=== PATIENT | male | born 1985 | race Caucasian/White ===

== ENCOUNTER 2018-12-02 12:51 | Inpatient (IN) ==
--- OUTSIDE RECORDS SUMMARY | 2018-12-02 12:53 | External Medical Summary | Continuity of Care Document ---
:1985 Author Name Jackie Galvan, Provider Address Unavailable Unavailable , Care Team Providers Name Role Phone Non[facility] MLeslie, Provider Unavailable [email or web address] PCP, UNKNOWN Unavailable Unavailable Problems Active medical history not documented Allergies and Adverse Reactions Allergy history not documented Medications Medications not documented Procedures Procedures not documented Immunizations Immunizations not documented Plan of Treatment Planned Observations Planned Goals not documented Results No Known Results Results not documented
[2018-12-02] MEDS ORDERED: ONDANSETRON INJ 2 MG/ML 2 ML VIAL IV STA (13:11)
[2018-12-02] MEDS ORDERED: KETOROLAC TROMETHAMINE 15 MG/ML VIAL IV STA (13:11)
[2018-12-02] MEDS ORDERED: ALBUT/IPRATROP 3MG/0.5MG NEB 3 ML VIAL NEB STA (13:15)
[2018-12-02] MEDS ORDERED: CEFEPIME 2,000 MG/20 ML VIAL IV STA (13:15)
[2018-12-02] MEDS ORDERED: SODIUM CHLORIDE 0.9% 1000ML 1,000 ML IV SCH (13:15)
[2018-12-02 13:24] LABS: Basophils # (auto) 0.04 K/uL (0-0.2); Basophils % (auto) 0.3 %; Eosinophils # (auto) 0.01 K/uL (0-0.5); Eosinophils % (auto) 0.1 %; Hematocrit (blood only) 44.3 % (42-52); Hemoglobin 15.7 g/dL (14.0-18.0); Immature Granulocytes # (auto) 0.04 K/uL (0.00-0.02); Immature Granulocytes % (auto) 0.3 %; Lymphocytes # (auto) 1.44 K/uL (1.2-3.4); Lymphocytes % (auto) 11.3 %; Mean Corpuscular Hgb Conc 35.4 g/dL (32-36); Mean Corpuscular Volume 87.2 fL (80-100); Mean Platelet Volume 10.2 fL (7.4-10.4); Monocytes # (auto) 1.03 K/uL (0.11-0.59); Monocytes % (auto) 8.1 %; Neutrophils # (auto) 10.16 K/uL (1.4-6.5); Neutrophils % (auto) 79.9 %; Platelet Count 124 K/uL (130-400); RDW Coefficient of Variation 13.1 % (11.5-14.5); RDW Standard Deviation 42.2 fL (36.4-46.3); Red Blood Count 5.08 M/uL (4.7-6.1); White Blood Count 12.72 K/uL (4.8-10.8)
[2018-12-02] MEDS: MoRPHine SULFATE 4 MG/ML 1 ML CARP\\VIAL IV PRN ×2 (13:30→14:34)
[2018-12-02 13:41] LABS: Albumin Level 3.5 gm/dl (3.4-5.0); Calcium 8.2 mg/dl (8.5-10.1); Creatinine Clr Calc Pharmacy 132.1 ml/min; Est GFR (African American) 96.4; Est GFR (Non-African American) 83.2; Magnesium 2.1 mg/dl (1.8-2.4); Potassium 3.6 mmol/L (3.5-5.1)
[2018-12-02 13:44] LABS: Albumin Globulin Ratio 0.9 (0.9-2); Bilirubin,Total 0.7 mg/dl (0.2-1); Globulin 3.8 gm/dl (2.5-4.0); Total Protein 7.3 gm/dl (6.4-8.2)
--- NOTE | 2018-12-02 14:05 | Emergency Department Note ---
Entered by Karlee Ball acting as a scribe for Osito Mcfarland MD History of Present Illness General Chief complaint: Abdominal Pain Stated complaint: BACK/STOMACH PAIN, NUMB IN THE ARMS Time Seen by Provider: 12/02/18 13:09 Source: patient History of Present Illness Onset (ago): day(s) 1 Location: abdomen Radiation: back Pain Consistency: + constant Maximum Pain Intensity: 10 Current Pain Intensity: 10 Quality: + other (Abdominal pain) Exacerbated By: + other (Deep breathing) Associated symptoms: + fever/chills, + nausea/vomiting (Positive nausea. Negative vomiting.) and + shortness of breath; no other (dysuria, polyuria) Treatments prior to arrival: other (Tylenol) The patient is a 32 year old male presenting to the Emergency Department complaining of constant abdominal pain starting 1 day ago. The patient reports that he has abdominal pain that radiates to his back. He currently rates this pain 10/10. He states that he is nauseous and has a cough and that sometimes his hands feel numb. He explains that he has a fever and that he took 2 Tylenol E xtra Strength 2 hours ago. He notes that he is short of breath and that deep breathing worsens his abdominal pain. He notes that he has been experiencing diarrhea ever since he had his gallbladder taken out. The patient reports that he has never experienced these symptoms before. He states that he has not been around anybody who is sick. He explains that [facility]. He notes that he smokes tobacco. The patient denies dysuria, polyuria, vomiting, history of diverticulitis and history of asthma. Home Medications Home Medications Medication Instructions Recorded Confirmed Type omeprazole 20 mg PO DAILY PRN 03/16/18 12/02/18 History Allergies Allergy/AdvReac Type Severity Reaction Status Date / Time No Known Allergies Allergy Verified 12/02/18 14:28 Past Med/Surg History Medical History Tobacco use (Chronic) GERD (gastroesophageal reflux disease) (Chronic) Post-operative pain (Resolved) Surgical History Hx of shoulder surgery (Chronic) History of tonsillectomy (Chronic) H/O adenoidectomy (Chronic) History of cholecystectomy (Chronic) Family History Other Diabetes Thyroid disorder Social History Preferred Language: Polish Communication Ability: Effective Nub Card Tender Required: No Beliefs That Will Affect Care: None Current Living Situation: Family Current Living Situation Comment: with girlfriend Other Information That Helps Us Care for You: No Feels Safe at Home: Yes Safety Concerns: Feels Safe At This Time Smoking Status: Current every day smoker Tobacco Type: cigarettes Second Hand Exposure: Yes Hx Alcohol Use: No Hx Substance Use: No Review of Systems See HPI for pertinent positives & negatives. and A total of 10 systems reviewed and were otherwise negative Physical Exam Vital Signs Vital Signs - 24 hr 12/02/18 12:54 12/02/18 14:01 12/02/18 14:37 Temperature 39.5 C H Temperature Source Oral Sepsis New/Unexplained Change in Mental Status No Sepsis Action Taken by Nursing No Action Required Pulse Rate 105 H Pulse Rate [Right Finger] 90 90 Pulse Rhythm Regular Pulse Strength Normal Respiratory Rate 22 14 16 Respiratory Effort / Characteristics Non-Labored Spontaneous Respiratory Depth Normal Respiratory Pattern Regular Blood Pressure 111/70 Blood Pressure [Left Arm] 95/52 L Blood Pressure Mean 83 Blood Pressure Mean [Left Arm] 66 Blood Pressure Position Sitting Pulse Oximetry 96 92 93 Oxygen Delivery Method Room Air Room Air Room Air GENERAL: Patient is in no acute distress. HEENT: No acute trauma, normocephalic atraumatic, mucous membranes moist, no nasal congestion, no scleral icterus. NECK: No stridor, no adenopathy, no meningismus, trachea is midline. LUNGS: Few scattered wheezes. Crackles at both bases especially on the right. No respiratory distress. HEART: Without murmurs gallops or rubs, regular rate and rhythm. ABDOMEN: Soft, bowel sounds positive, no hernias, no peritonitis. Mildly di ffusely tender but primarily tender in the right lower quadrant. EXTREMITIES: No cyanosis or edema, full range of motion of all the joints without pain or difficulty, no signs for acute trauma. NEUROLOGIC: Oriented x 3, no acute motor or sensory deficits, no focal weakness. SKIN: No rash, no jaundice, no diaphoresis. Course 1310: The patient was evaluated in room C1B, and a complete history and physical examination were performed. 1342: I updated the patient at this time on his imaging studies. 1455: I reevaluated the patient at this time and we discussed his findings. We discussed the patients disposition. 1500: I discussed the patients case with Kourtney Islas PA-C. Dr. Ana Vyas hospitalist will evaluate the patient for further management. Consultations Consultation #1: I discussed the patients case with Kourtney Islas PA-C. Dr. Ana Vyas hospitalist will evaluate the patient for further management. Time: 15:00 Administered Medications Acetaminophen (Tylenol) 650 mg PO Q4H PRN PRN Reason: Pain or Fever Stop: 01/01/19 16:28 Last Admin: 12/02/18 16:51 Dose: 650 mg Documented by: [id number] Albuterol (Duoneb) 3 ml NEB QIDR ABHILASH Stop: 01/01/19 16:28 Last Admin: 12/02/18 17:31 Dose: Not Given Documented by: [id number] Sodium Chloride (Nss 1000ml) 1,000 mls @ 125 mls/hr IV .Q8H ABHILASH Stop: 01/01/19 16:28 Last Admin: 12/02/18 16:51 Dose: 125 mls/hr Documented by: [id number] Nicotine (Nicoderm Cq) 14 mg TD QAM ABHILASH Stop: 01/01/19 16:59 Last Admin: 12/02/18 16:52 Dose: Not Given Documented by: [id number] Discontinued Medications Albuterol (Duoneb) 3 ml NEB NOW STA Stop: 12/02/18 13:16 Last Admin: 12/02/18 13:58 Dose: 3 ml Documented by: [id number] Hydromorphone HCl (Dilaudid) 1 mg IV NOW STA Stop: 12/02/18 14:52 Last Admin: 12/02/18 15:01 Dose: 1 mg Documented by: [id number] Cefepime HCl (Maxipime) 2,000 mg in 20 mls @ 5 mls/min IV NOW STA; Protocol Stop: 12/02/18 13:18 Last Admin: 12/02/18 13:42 Dose: 5 mls/min Documented by: [id number] Sodium Chloride (Nss 1000ml) 1,000 mls @ 999 mls/hr IV .Q1H1M ABHILASH Stop: 12/02/18 14:15 Last Infusion: 12/02/18 15:24 Dose: 0 mls/hr Documented by: [id number] Admin: 12/02/18 13:30 Dose: 999 mls/hr Documented by: [id number] Azithromycin 500 mg/ Dextrose 255 mls @ 127.5 mls/hr IV UD ABHILASH Stop: 12/09/18 14:59 Last Infusion: 12/02/18 16:35 Dose: 0 mls/hr Documented by: [id number] Admin: 12/02/18 15:19 Dose: 127.5 mls/hr Documented by: [id number] Sodium Chloride (Nss 1000ml) 500 mls @ 999 mls/hr IV .Q31M ONE Stop: 12/02/18 15:30 Last Infusion: 12/02/18 15:24 Dose: 0 mls/hr Documented by: [id number] Admin: 12/02/18 15:13 Dose: 999 mls/hr Documented by: [id number] Ibuprofen (Motrin) 600 mg PO NOW STA Stop: 12/02/18 17:42 Last Admin: 12/02/18 18:00 Dose: 600 mg Documented by: [id number] Ioversol (Optiray 320 100ml) 94 ml IV ONCE PRN PRN Reason: Interaction Checking Stop: 12/06/18 14:11 Last Admin: 12/02/18 14:12 Dose: 94 ml Documented by: [id number] Ketorolac Tromethamine (Toradol) 15 mg IV NOW STA Stop: 12/02/18 13:12 Last Admin: 12/02/18 13:30 Dose: 15 mg Documented by: [id number] Morphine Sulfate (Morphine Sulfate) 4 mg IV Q15M PRN PRN Reason: Pain Stop: 12/16/18 13:10 Last Admin: 12/02/18 14:34 Dose: 4 mg Documented by: [id number] Admin: 12/02/18 13:30 Dose: 4 mg Documented by: [id number] Ondansetron HCl (Zofran) 4 mg IV NOW STA Stop: 12/02/18 13:12 Last Admin: 12/02/18 13:30 Dose: 4 mg Documented by: [id number] Medical Decision Making Differential Diagnosis Differentials include appendicitis, pneumonia, diverticulitis, colitis, abscess, pancreatitis, UTI, kidney infection, viral or food borne illness and dehydration amongst others. Medical Records Attestation: I reviewed the patient's medical records. Home Medications Current Medication List: was personally reviewed by me Laboratory Data Attestation: I reviewed the patient's lab results. Result diagrams: 12/02/18 13:17 12/02/18 13:17 Lab Results 12/02/18 12/02/18 12/02/18 Range/Units 13:17 13:17 13:17 WBC 12.72 H (4.8-10.8) K/uL RBC 5.08 (4.7-6.1) M/uL Hgb 15.7 (14.0-18.0) g/dL Hct 44.3 (42-52) % MCV 87.2 (80-100) fL MCH 30.9 (25-34) pg MCHC 35.4 (32-36) g/dL RDW Std Deviation 42.2 (36.4-46.3) fL RDW Coeff of Giancarlo 13.1 (11.5-14.5) % Plt Count 124 L (130-400) K/uL MPV 10.2 (7.4-10.4) fL Immature Gran % (Auto) 0.3 % Neut % (Auto) 79.9 % Lymph % (Auto) 11.3 % [place] % (Auto) 8.1 % Eos % (Auto) 0.1 % Baso % (Auto) 0.3 % Immature Gran # (Auto) 0.04 H (0.00-0.02) K/uL Neut # (Auto) 10.16 H (1.4-6.5) K/uL Lymph # (Auto) 1.44 (1.2-3.4) K/uL [place] # (Auto) 1.03 H (0.11-0.59) K/uL Eos # (Auto) 0.01 (0-0.5) K/uL Baso # (Auto) 0.04 (0-0.2) K/uL Sodium 131 L (136-145) mmol/L Potassium 3.6 (3.5-5.1) mmol/L Chloride 98 (98-107) mmol/L Carbon Dioxide 24 (21-32) mmol/L Anion Gap 9.0 (3-11) BUN 16 (7-18) mg/dl Creatinine 1.15 (0.6-1.4) mg/dl Est Cr Clr Drug Dosing 132.1 ml/min Est GFR ( Amer) 96.4 Est GFR (Non-Af Amer) 83.2 BUN/Creatinine Ratio 14.0 (10-20) Glucose 131 H (70-99) mg/dl Lactate 1.2 (0.4-2.0) mmol/L Calcium 8.2 L (8.5-10.1) mg/dl Magnesium 2.1 (1.8-2.4) mg/dl Total Bilirubin 0.7 (0.2-1) mg/dl AST 11 L (15-37) U/L ALT 21 (12-78) U/L Alkaline Phosphatase 48 (45-117) U/L Total Protein 7.3 (6.4-8.2) gm/dl Albumin 3.5 (3.4-5.0) gm/dl Globulin 3.8 (2.5-4.0) gm/dl Albumin/Globulin Ratio 0.9 (0.9-2) Lipase 78 (73-393) U/L Procalcitonin (0-0.5) ng/ml 12/02/18 Range/Units 13:17 WBC (4.8-10.8) K/uL RBC (4.7-6.1) M/uL Hgb (14.0-18.0) g/dL Hct (42-52) % MCV (80-100) fL MCH (25-34) pg MCHC (32-36) g/dL RDW Std Deviation (36.4-46.3) fL RDW Coeff of Giancarlo (11.5-14.5) % Plt Count (130-400) K/uL MPV (7.4-10.4) fL Immature Gran % (Auto) % Neut % (Auto) % Lymph % (Auto) % [place] % (Auto) % Eos % (Auto) % Baso % (Auto) % Immature Gran # (Auto) (0.00-0.02) K/uL Neut # (Auto) (1.4-6.5) K/uL Lymph # (Auto) (1.2-3.4) K/uL [place] # (Auto) (0.11-0.59) K/uL Eos # (Auto) (0-0.5) K/uL Baso # (Auto) (0-0.2) K/uL Sodium (136-145) mmol/L Potassium (3.5-5.1) mmol/L Chloride (98-107) mmol/L Carbon Dioxide (21-32) mmol/L Anion Gap (3-11) BUN (7-18) mg/dl Creatinine (0.6-1.4) mg/dl Est Cr Clr Drug Dosing ml/min Est GFR ( Amer) Est GFR (Non-Af Amer) BUN/Creatinine Ratio (10-20) Glucose (70-99) mg/dl Lactate (0.4-2.0) mmol/L Calcium (8.5-10.1) mg/dl Magnesium (1.8-2.4) mg/dl Total Bilirubin (0.2-1) mg/dl AST (15-37) U/L ALT (12-78) U/L Alkaline Phosphatase (45-117) U/L Total Protein (6.4-8.2) gm/dl Albumin (3.4-5.0) gm/dl Globulin (2.5-4.0) gm/dl Albumin/Globulin Ratio (0.9-2) Lipase (73-393) U/L Procalcitonin 0.58 H (0-0.5) ng/ml Imaging Data Radiologist's Impression: Radiology results as stated below per my review and the radiologist's interpretation: CT SCAN OF THE ABDOMEN AND PELVIS WITH IV CONTRAST CLINICAL HISTORY: Lower abdominal pain. COMPARISON STUDY: Abdominal CT dated 03/16/2018. TECHNIQUE: Following the IV administration of 94 cc of Optiray 320, CT scan of the abdomen and pelvis is performed from the lung bases to the proximal femora. Images are reviewed in the axial, sagittal, and coronal planes. IV contrast was administered without complication. A dose lowering technique was utilized adhering to the principles of ALARA. CT DOSE: 1386.25 mGy.cm FINDINGS: Lung bases: The heart is normal in size and without pericardial effusion. There is dense airspace consolidation in the right lower lobe. Dependent consolidation is seen at the left lung base in the left lower lobe and lingula. Trace pleural effusions are noted There is a small hiatal hernia. Liver: The contrast-enhanced liver is normal in size, contour, and attenuation. There is no intrahepatic biliary ductal dilatation. The hepatic veins and portal veins are patent. Gallbladder: Surgically absent noting clips in the gallbladder fossa. Spleen: Normal in size and attenuation. Pancreas: Unremarkable. Adrenal glands: Unremarkable. Kidneys: The contrast enhanced kidneys are normal in size and without hydronephrosis. The kidneys enhance symmetrically. Abdominal vasculature: The abdominal aorta is normal in course and caliber. Bowel: The small bowel and colon are normal in course and caliber. The appendix is well-visualized and normal. Peritoneum: There is no intraperitoneal free air or abdominal ascites. There is a fat-containing umbilical hernia. Lymphadenopathy: None. Pelvic viscera: The bladder, prostate, and seminal vesicles are normal as imaged. Skeletal structures: A hemangioma is incidentally noted in the body of L3. No lytic or blastic lesions are seen. Limbus vertebra is incidentally noted at L4. IMPRESSION: 1. There is bibasilar consolidation, right greater than left with trace pleural effusions. The appearance is typical for pneumonia. Radiographic follow-up to resolution is recommended. 2. No acute infectious or inflammatory findings are identified in the abdomen or pelvis.. Electronically signed by: Osito Bennett M.D. 12/02/2018 2:27 PM ADDENDUM ADDENDUM: As shown by CT, the consolidation is present within the right lower lobe not the right middle lobe. Follow-up radiographs should include PA and lateral views. Electronically signed by: Osito Bennett M.D. 12/02/2018 2:28 PM ADDENDUM END SINGLE VIEW CHEST CLINICAL HISTORY: Dyspnea. FINDINGS: An AP, portable, upright chest radiograph is compared to study dated 03/16/2018. The cardiomediastinal silhouette is unremarkable. There is dense airspace consolidation identified in the right middle lobe. A trace right pleural effusion is noted. The left lung appears clear noting basilar atelectasis. No pneumothorax is seen. The bony thorax is grossly intact. IMPRESSION: There is dense right middle lobe consolidation typical in appearance for pneumonia. Clinical correlation will be required and radiographic follow-up to resolution is recommended. Electronically signed by: Osito Bennett M.D. 12/02/2018 2:15 PM ECG Data Attestation: I personally reviewed and interpreted this ECG as follows: Indication: abdominal pain Rate (beats per minute): 99 Rhythm: normal sinus Findings: no PVC and no ST elevation Blood Pressure Blood Pressure Findings: Low blood pressure Blood Pressure Disposition: further management by hospitalist [facility] Narrative There is a mild leukocytosis, this is consistent with infection. Platelet count slightly low at 124, no anemia. Renal panel testing does not show evidence for renal failure or for significant electrolyte abnormality. No liver enzyme elevation. No evidence for pancreatitis. EKG showed a sinus rhythm, no acute ischemia. Chest film shows a right lower lung pneumonia. Abdominal and pelvis CT does not show appendicitis or diverticulitis. The lower lung pneumonia on the right was noted on the CT scan. Lactic acid level is not elevated making sepsis less likely. The patient presents with shortness of breath, fever and abdominal pain. The pain is quite intense across the abdomen and is worsened with movement and taking a deep breath. Patient received IV cefepime and IV Zithromax for antibiotic coverage. He received IV saline for hydration. He received IV morphine for pain, IV Zofran for nausea. He was given IV Dilaudid for additional pain control. He received IV Toradol. Patient was given a DuoNeb. The patient is still quite uncomfortable. I do not think he is able to be discharged. This pneumonia has caused quite a bit of abdominal pain, likely from diaphragmatic irritation. IV antibiotics and pain control are required. I did speak with the patient and trimming caser. The on-call hospitalist was consulted. Impression & Plan Diffuse abdominal pain, Pneumonia, Fever, Shortness of breath, Hypotension Discharge Plan Visit Data *Final* Discharge Date/Time: 12/02/18 16:09 Chief Complaint: Abdominal Pain Stated Complaint: BACK/STOMACH PAIN, NUMB IN THE ARMS Other Complaint: Neuro Symptoms/Deficit ED Provider: Osito Mcfarland Discharge Problem: Diffuse abdominal pain, Pneumonia, Fever, Shortness of breath, Hypotension Patient Disposition: Admitted As Inpatient Discharge Instructions Interventions: ED Discharge Assessment Last Done: 12/02/18 16:09 Discharge Problem: Pneumonia Qualifiers: Pneumonia type: due to unspecified organism Laterality: right Lung location: lower lobe of lung Qualified Code(s): J18.1 - Lobar pneumonia, unspecified organism Fever Qualifiers: Fever type: unspecified Qualified Code(s): R50.9 - Fever, unspecified Hypotension Qualifiers: Hypotension type: unspecified hypotension type Qualified Code(s): I95.9 - Hy potension, unspecified The scribe's documentation has been prepared under my direction and personally reviewed by me in its entirety. I confirm that the note above accurately reflects all work, treatment, procedures, and medical decision making performed by me.
[2018-12-02] MEDS ORDERED: IOVERSOL 100ml IV PRN (14:12)
--- NOTE | 2018-12-02 14:16 | XRay Report ---
SINGLE VIEW CHEST CLINICAL HISTORY: Dyspnea. FINDINGS: An AP, portable, upright chest radiograph is compared to study dated 03/16/2018. The cardiom ediastinal silhouette is unremarkable. There is dense airspace consolidation identified in the right middle lobe. A trace right pleural effusion is noted. The left lung appears clear noting basilar atel ectasis. No pneumothorax is seen. The bony thorax is grossly intact. IMPRESSION: There is dense right middle lobe consolidation typical in appearance for pneumonia. Clini letha correlation will be required and radiographic follow-up to resolution is recommended. Electronically signed by: Osito Bennett M.D. 12/02/2018 2:15 PM
--- NOTE | 2018-12-02 14:29 | CT Scan Report ---
CT SCAN OF THE ABDOMEN AND PELVIS WITH IV CONTRAST CLINICAL HISTORY: Lower abdominal pain. COMPARISON STUDY: Abdominal CT dated 03/16/2018. TECHNIQUE: Following the IV administration of 94 cc of Optiray 320, CT scan of the abdomen and pelvi s is performed from the lung bases to the proximal femora. Images are reviewed in the axial, sagittal , and coronal planes. IV contrast was administered without complication. A dose lowering technique wa s utilized adhering to the principles of ALARA. CT DOSE: 1386.25 mGy.cm FINDINGS: Lung bases: The heart is normal in size and without pericardial effusion. There is dense airspace con solidation in the right lower lobe. Dependent consolidation is seen at the left lung base in the left lower lobe and lingula. Trace pleural effusions are noted There is a small hiatal hernia. Liver: The contrast-enhanced liver is normal in size, contour, and attenuation. There is no intrahepa tic biliary ductal dilatation. The hepatic veins and portal veins are patent. Gallbladder: Surgically absent noting clips in the gallbladder fossa. Spleen: Normal in size and attenuation. Pancreas: Unremarkable. Adrenal glands: Unremarkable. Kidneys: The contrast enhanced kidneys are normal in size and without hydronephrosis. The kidneys enh ance symmetrically. Abdominal vasculature: The abdominal aorta is normal in course and caliber. Bowel: The small bowel and colon are normal in course and caliber. The appendix is well-visualized a nd normal. Peritoneum: There is no intraperitoneal free air or abdominal ascites. There is a fat-containing umbi lical hernia. Lymphadenopathy: None. Pelvic viscera: The bladder, prostate, and seminal vesicles are normal as imaged. Skeletal structures: A hemangioma is incidentally noted in the body of L3. No lytic or blastic lesion s are seen. Limbus vertebra is incidentally noted at L4. IMPRESSION: 1. There is bibasilar consolidation, right greater than left with trace pleural effusions. The appear ance is typical for pneumonia. Radiographic follow-up to resolution is recommended. 2. No acute infectious or inflammatory findings are identified in the abdomen or pelvis.. Electronically signed by: Osito Bennett M.D. 12/02/2018 2:27 PM
[2018-12-02] MEDS ORDERED: HYDROmorphone INJ 1 MG/ML SYRINGE IV STA (14:51)
[2018-12-02] MEDS ORDERED: SODIUM CHLORIDE 0.9% 1000ML 500 ML IV ONE (15:00)
[2018-12-02] MEDS ORDERED: AZITHROMYCIN 500 MG in DEXTROSE 5% 250 ML IV SCH (15:00)
--- NOTE | 2018-12-02 15:59 | History & Physical Report ---
Date of Service December 02, 2018 Assessment & Plan (1) Fever: (2) Pneumonia: Pt presented with c/o productive cough, tactile fever, SOB x couple of days with upper abdominal pain x 1 day. In ER T: 39.5C, P: 105 down to 90, R: 22 down to 16, BP: 11/70, 95/52, 123/77, 93-96% on RA WBC: 12, H/H: 15/44, Plt: 12, Na: 131, glucose: 131, Lactate: 1.2 CXR:the consolidation is present within the right lower lobe not the right middle lobe. Follow-up radiographs should include PA and lateral views. CT ABD/PELVIS:1. There is bibasilar consolidation, right greater than left with trace pleural effusions. The appearance is typical for pneumonia. Radiographic follow-up to resolution is recommended. Pt meets SIRS criteria -In ER given 1500ml NSS, Dilaudid, morphine, Zofran, Toradol, cefepime IV, Zithromax IV, albuterol neb -Blood cultures pending -Sputum culture pending -MRSA swab -Influenza swab -Cefepime, Zithromax -IVF -Duonebs -CBC, BMP in am (3) Abdominal pain: C/O upper abdominal pain and lower chest pain Normal LFTs, lipase, Normal lactate. WBC: 12 CT ABD/PELVIS with IV contrast: There is bibasilar consolidation, right greater than left with trace pleural effusions. The appearance is typical for pneumonia. Radiographic follow-up to resolution is recommended. No acute infectious or inflammatory findings are identified in the abdomen or pelvis. Abdominal pain may be secondary to pneumonia -Monitor -Toradol, oxycodone prn pain -Follow CBC, BMP (4) Tobacco use: -Smoking cessation encouraged -Nicotine patch DVT Prophylaxis -Low risk, Ambulate Follows with Dr Woodward for routine care Pt was seen and care coordinated with Dr Mistry. See addendum History of Present Illness Chief Complaint: Abdominal pain, cough, fever Primary Care Provider: Kenton Woodward DO Pt is 32 y/o M with PMH GERD, tobacco use resented to ER with complaint of abdominal pain, cough and fever. Patient reports past 3 days with cough productive of yellow sputum. Tactile fevers for the past 2 days. Yesterday started with upper abdominal pain that radiates around flank and back. Reports some shortness of breath. States the past 3 days with decreased appetite and poor oral intake. Last BM 2-3 days ago. Tried taking Tylenol at home with limited relief. Denies ill contacts. Denies recent travel. Denies injury/trauma, recent surgery. Denies recent antibiotic use. History of cholecystectomy 2017. Denies vomiting, RENTERIA, dizziness, syncope, vision changes, neck pain, orthopnea, palpitations, hemoptysis, sore throat, choking, otalgia, rhinorrhea, extremity weakness, extremity edema, rashes, urinary symptoms. Allergies Allergy/AdvReac Type Severity Reaction Status Date / Time No Known Allergies Allergy Verified 12/02/18 14:28 Home Medications Home Medications Medication Instructions Recorded Confirmed Type omeprazole 20 mg PO DAILY PRN 03/16/18 12/02/18 History Past Med/Surg History Medical History Tobacco use (Chronic) GERD (gastroesophageal reflux disease) (Chronic) Post-operative pain (Resolved) Surgical History Hx of shoulder surgery (Chronic) History of tonsillectomy (Chronic) H/O adenoidectomy (Chronic) History of cholecystectomy (Chronic) Family History Other Diabetes Thyroid disorder Social History Preferred Language: Uzbek Communication Ability: Effective Enrichment Assistant Required: No Beliefs That Will Affect Care: None Current Living Situation: Family Current Living Situation Comment: with girlfriend Other Information That Helps Us Care for You: No Feels Safe at Home: Yes Safety Concerns: Feels Safe At This Time Smoking Status: Current every day smoker Tobacco Type: cigarettes Second Hand Exposure: Yes Hx Alcohol Use: No Hx Substance Use: No Review of Systems Review of Systems: All systems reviewed & are unremarkable except as noted in HPI & below Physical Exam Physical Exam: General: no acute distress, ill appearing, obese Head: normocephalic, atraumatic Eyes: PERRL, EOM's intact, conjunctiva non-injected, anicteric ENT: normal inspection external ears, nose, mucous membranes dry Neck: supple, trachea midline Lungs: no respiratory distress, +rales RLL, faint rales to LLL Chest: no rashes noted, +tenderness to palpation low anterior and lateral chest CV: RRR, no murmur, no pretibial edema Abd: normal BS, soft, +tenderness to palpation RUQ, epigastric, LUQ without rebound Ext: no cyanosis, no calf tenderness Neuro: A&O x 3, no focal deficits noted, normal affect Skin: hot, dry Results & Data Vital Signs (Past 12 Hours) Vital Signs Temp Pulse Pulse Resp BP BP Pulse Ox 12/02/18 14:37 90 16 95/52 L 93 12/02/18 14:01 90 14 92 12/02/18 12:54 39.5 C H 105 H 22 111/70 96 Laboratory Results Short CBC 12/02/18 Range/Units 13:17 WBC 12.72 H (4.8-10.8) K/uL Hgb 15.7 (14.0-18.0) g/dL Hct 44.3 (42-52) % Plt Count 124 L (130-400) K/uL BMP 12/02/18 13:17 Sodium 131 L Potassium 3.6 Chloride 98 Carbon Dioxide 24 BUN 16 Creatinine 1.15 Glucose 131 H Calcium 8.2 L Liver Function 12/02/18 Range/Units 13:17 Total Bilirubin 0.7 (0.2-1) mg/dl AST 11 L (15-37) U/L ALT 21 (12-78) U/L Alkaline Phosphatase 48 (45-117) U/L Albumin 3.5 (3.4-5.0) gm/dl LACTATE 1.2 (0.4-2.0) Diagnostic Findings CXR: As shown by CT, the consolidation is present within the right lower lobe not the right middle lobe. Follow-up radiographs should include PA and lateral views. CT ABD/PELVIS: IMPRESSION: 1. There is bibasilar consolidation, right greater than left with trace pleural effusions. The appearance is typical for pneumonia. Radiographic follow-up to resolution is recommended. 2. No acute infectious or inflammatory findings are identified in the abdomen or pelvis. Supervising Physician Co-Signing Physician Notes I saw this patient with the physician housing assistant, I participated in the history, physical, review of systems, and physical exam. I reviewed the medications with the patient and the physician housing assistant and helped reconcile the medications. I helped take a detailed family and social history as well. I formulated the as sessment and plan personally with the physician housing assistant and went over it with the patient. ROS-No Headache, No Visual Changes, No Nausea, No Vomiting, +Fever, +Chills, No Neck Pain or Stiffness, +Chest Pain, No Palpitations, +SOB, +MARCOS, +Cough, +Sputum, No Wheezing, No Abdominal Pain, No Diarrhea, No Hematemesis, No Hemoptysis, No Unexpected Weight Loss, No Flank pain, No Melena, No Hematochezia, No Frequency, No Urgency, No Burning, No Hematuria, No Rashes, No Diaphoresis. Appetite is Normal Physical Exam Gen-AAO x 3, NAD, Febrile, Toxic, [place]-NCAT, EOMI, PERRLA, Anicteric Sclera, No Posterior Pharyngeal Erythema Neck-Supple, No JVD, No Thyromegaly, No Masses, No LAD, No Bruits Lungs-Clear to Auscultation Bilaterally, L Rales, No Rhonchi, No Wheezing, No Crepitus Chest-No S4, +S1, +S2, No S3, No Murmurs, No Rubs, No Gallops, No Ectopy Abdomen-Soft, Bowel Sounds Present, Non Tender, Non Distended, No Hepatomegaly, No Splenomegaly, No Palpable Masses, No Rebound, No Rigidity, No Guarding Musculoskeletal-Full Range of Motion Bilaterally, No CVAT Extremities-No Cyanosis, No Clubbing, No Edema Nuero-Cranial Nerves II-XII grossly intact, Motor WNL, DTRs WNL, Strength WNL, Non Focal Psych-Normal Mood (1) Fever Fever type: unspecified Qualified Code(s): R50.9 - Fever, unspecified (2) Pneumonia Laterality: right Lung location: lower lobe of lung Pneumonia type: due to unspecified organism Qualified Code(s): J18.1 - Lobar pneumonia, unspecified organism
[2018-12-02] MEDS ORDERED: ONDANSETRON INJ 2 MG/ML 2 ML VIAL IV PRN (16:29)
[2018-12-02] MEDS ORDERED: CONSULT PHARMACY STA (16:29)
[2018-12-02] MEDS ORDERED: CEFEPIME CONSULT ACTIVE PRN (16:37)
[2018-12-02] MEDS: ACETAMINOPHEN 325 MG TAB PO PRN (16:51)
[2018-12-02] MEDS: SODIUM CHLORIDE 0.9% 1000ML 1,000 ML IV SCH (16:51)
[2018-12-02] MEDS: NICOTINE 14 MG/24 HR PATCH TD SCH (16:52)
[2018-12-02 16:54] LABS: Influenza A virus by PCR Neg for Influ A (Neg); Influenza B virus by PCR Neg for Influ B (Neg)
[2018-12-02] MEDS: ALBUT/IPRATROP 3MG/0.5MG NEB 3 ML VIAL NEB SCH ×2 (17:31→19:51)
[2018-12-02] MEDS ORDERED: IBUPROFEN 600 MG TAB PO STA (17:41)
[2018-12-02] MEDS ORDERED: SODIUM CHLORIDE 0.9% 1000ML 1,000 ML IV ONE (20:05)
[2018-12-02] MEDS: OXYCODONE HCL IR 5 MG TAB (IMMEDIATE RELEASE) PO PRN (20:24)
[2018-12-02] MEDS: CEFEPIME 2,000 MG in SYRINGE 7.5 ML IV SCH (20:24)
[2018-12-02 21:53] LABS: Appearance Urine Clear (Clear); Bacteria Urine Automated Negative (Negative); Bilirubin Urine Negative (Negative); Blood Urine Negative (Negative); Color Urine Dark Yellow; Glucose Urine UA Negative (Negative); Ketones Urine Negative (Negative); Leukocyte Esterase Urine Negative (Negative); Nitrite Urine Negative (Negative); Protein Urine Trace (Negative); RBC Urine Automated 0-4 /hpf (0-4); Specific Gravity Urine > 1.045 (1.000-1.030); Urobilinogen Urine Negative (Negative)
[2018-12-03] MEDS: SODIUM CHLORIDE 0.9% 1000ML 1,000 ML IV SCH ×2 (02:39→19:50)
[2018-12-03] MEDS: KETOROLAC TROMETHAMINE 15 MG/ML VIAL IV PRN ×3 (02:43→15:20)
[2018-12-03] MEDS: CEFEPIME 2,000 MG in SYRINGE 7.5 ML IV SCH ×3 (04:40→20:20)
[2018-12-03] MEDS: OXYCODONE HCL IR 5 MG TAB (IMMEDIATE RELEASE) PO PRN (05:32)
[2018-12-03 06:25] LABS: Basophils # (auto) 0.02 K/uL (0-0.2); Basophils % (auto) 0.2 %; Eosinophils # (auto) 0.04 K/uL (0-0.5); Eosinophils % (auto) 0.5 %; Hematocrit (blood only) 38.7 % (42-52); Hemoglobin 13.2 g/dL (14.0-18.0); Immature Granulocytes # (auto) 0.01 K/uL (0.00-0.02); Immature Granulocytes % (auto) 0.1 %; Lymphocytes % (auto) 13.7 %; Mean Corpuscular Hgb Conc 34.1 g/dL (32-36); Mean Corpuscular Volume 88.6 fL (80-100); Mean Platelet Volume 9.9 fL (7.4-10.4); Monocytes # (auto) 0.67 K/uL (0.11-0.59); Monocytes % (auto) 7.6 %; Neutrophils # (auto) 6.85 K/uL (1.4-6.5); Neutrophils % (auto) 77.9 %; Platelet Count 101 K/uL (130-400); RDW Coefficient of Variation 13.3 % (11.5-14.5); RDW Standard Deviation 43.1 fL (36.4-46.3); Red Blood Count 4.37 M/uL (4.7-6.1); White Blood Count 8.79 K/uL (4.8-10.8)
[2018-12-03 07:02] LABS: BUN Creatinine Ratio 14.9 (10-20); Calcium 7.5 mg/dl (8.5-10.1); Est GFR (African American) 127.9; Est GFR (Non-African American) 110.3; Potassium 3.9 mmol/L (3.5-5.1)
[2018-12-03] MEDS: ALBUT/IPRATROP 3MG/0.5MG NEB 3 ML VIAL NEB SCH ×2 (07:23→11:10)
[2018-12-03] MEDS: NICOTINE 14 MG/24 HR PATCH TD SCH (07:50)
[2018-12-03] MEDS: ACETAMINOPHEN 325 MG TAB PO PRN ×3 (07:51→19:42)
[2018-12-03] MEDS ORDERED: HYDROmorphone INJ 0.5 MG/0.5 ML SYR IV STA (09:39)
--- NOTE | 2018-12-03 11:39 | Hospitalist Progress Note ---
Date of Service December 03, 2018 Assessment & Plan (1) Fever: (2) Pneumonia: Right middle Lobe pneumonia, Community Acquired Pneumonia -Pt presented with c/o productive cough, tactile fever, SOB x couple of days with upper abdominal pain x 1 day. In ER T: 39.5C, P: 105 down to 90, R: 22 down to 16, BP: 11/70, 95/52, 123/77, 93-96% on RA WBC: 12, H/H: 15/44, Plt: 12, Na: 131, glucose: 131, Lactate: 1.2; meets SIRS criteria -There is dense right middle lobe consolidation typical in appearance for pneumonia on CXR; CT ABD/PELVIS There is bibasilar consolidation, right greater than left with trace pleural effusions. The appearance is typical for pneumonia.otherwise no other abnormal abdomen imaging findings -In ER given 1500ml NSS, Dilaudid, morphine, Zofran, Toradol, cefepime IV, Azithromycin IV, albuterol neb -MRSA swab negative, influenza negative -continuing cefepime and Azithromycin, follow cultures -nebulizers as prn for shortness of breath or wheezing, incentive spirometer, encourage ambulation (3) Abdominal pain: -C/O right upper abdominal pain and right lower chest pain -Normal LFTs, lipase, Normal lactate. WBC: 12 -CT ABD/PELVIS with IV contrast: There is bibasilar consolidation, right greater than left with trace pleural effusions. The appearance is typical for pneumonia. Radiographic follow-up to resolution is recommended. -No acute infectious or inflammatory findings are identified in the abdomen or pelvis. -likely symptoms are from pleuritic pain from pneumonia -pain medications as needed, incentive spirometer, encourage ambulation (4) Tobacco use: -Smoking cessation encouraged -Nicotine patch DVT Prophylaxis -Low risk, Ambulate Subjective Patient seen and examined at bedside. reported or right lower back pain and right sided abdomen pain. patient breathing on room air. patient reports at times feeling warm. no headache. no dizziness. no neck pain. no acute shortness of breathing. breathing on room air. no vomiting. Physical Exam Constitutional: WD/WN, vitals as above Eyes: PERRL, conjunctivae normal, anicteric sclerae EOM intact bilaterally ENMT: external ear and nose normal, oropharynx normal Neck: normal visual inspection Respiratory: normal respiratory effort, lungs clear to auscultation Cardiovascular: Rate/Rhythm: regular rate and regular rhythm Gastrointestinal (Abdomen): normal bowel sounds, soft, nontender, no hepatosplenomegaly Musculoskeletal: Head/Neck/Chest: normocephalic and head atraumatic Neurologic: PERRL, EOMI, accommodation nl, no face palsy, no dysarthria CN's II-XI intact bilaterally Psychiatric: A+Ox3, euthymic affect Results & Data Vital Signs (Past 12 Hours) Vital Signs Temp Pulse Pulse Resp BP Pulse Ox 12/03/18 11:10 94 H 18 95 12/03/18 10:24 37.4 C 12/03/18 09:25 37.6 C H 12/03/18 08:51 37.7 C H 12/03/18 08:00 94 H 12/03/18 07:24 38.1 C H 91 H 20 131/80 92 12/03/18 07:23 104 H 16 93 12/03/18 04:25 37.4 C 12/03/18 03:00 38.5 C H 93 H 18 100/65 91 (1) Fever Fever type: unspecified Qualified Code(s): R50.9 - Fever, unspecified (2) Pneumonia Laterality: right Lung location: lower lobe of lung Pneumonia type: due to unspecified organism Qualified Code(s): J18.1 - Lobar pneumonia, unspecified organism
[2018-12-03] MEDS ORDERED: ALBUT/IPRATROP 3MG/0.5MG NEB 3 ML VIAL NEB PRN (11:48)
[2018-12-03] MEDS: AZITHROMYCIN 500 MG in DEXTROSE 5% 250 ML IV SCH (14:34)
[2018-12-03] MEDS ORDERED: ACETAMINOPHEN 1,000 MG/100 ML VIAL IV STA (14:48)
[2018-12-03] MEDS ORDERED: KETOROLAC TROMETHAMINE 15 MG/ML VIAL IV ONE (14:49)
[2018-12-04] MEDS: CEFEPIME 2,000 MG in SYRINGE 7.5 ML IV SCH ×3 (05:00→21:26)
[2018-12-04 07:30] LABS: Basophils # (auto) 0.05 K/uL (0-0.2); Basophils % (auto) 0.8 %; Eosinophils # (auto) 0.35 K/uL (0-0.5); Eosinophils % (auto) 5.3 %; Hemoglobin 13.7 g/dL (14.0-18.0); Immature Granulocytes # (auto) 0.01 K/uL (0.00-0.02); Immature Granulocytes % (auto) 0.2 %; Lymphocytes # (auto) 1.43 K/uL (1.2-3.4); Lymphocytes % (auto) 21.7 %; Mean Corpuscular Hgb Conc 35.1 g/dL (32-36); Mean Corpuscular Volume 87.1 fL (80-100); Monocytes # (auto) 1.05 K/uL (0.11-0.59); Monocytes % (auto) 15.9 %; Neutrophils # (auto) 3.71 K/uL (1.4-6.5); Neutrophils % (auto) 56.1 %; Platelet Count 101 K/uL (130-400); RDW Coefficient of Variation 13.1 % (11.5-14.5); RDW Standard Deviation 42.1 fL (36.4-46.3); Red Blood Count 4.48 M/uL (4.7-6.1)
[2018-12-04 07:46] LABS: BUN Creatinine Ratio 10.9 (10-20); Calcium 7.9 mg/dl (8.5-10.1); Creatinine Clr Calc Pharmacy 185.2 ml/min; Est GFR (African American) 134.7; Est GFR (Non-African American) 116.2; Potassium 3.7 mmol/L (3.5-5.1)
--- NOTE | 2018-12-04 08:27 | XRay Report ---
XR chest 2V routine HISTORY: 32 years-old Male follow up lung infiltrates on 12/04/18 follow-up study in a patient with a cute shortness of breath and pulmonary opacities COMPARISON: Chest radiograph and CT abdomen and pelvis 12/02/2018 TECHNIQUE: PA and lateral views of the chest FINDINGS: A lobular opacities of the right greater than left bilateral lower lobes are redemonstrated with alve olar opacities about the left lung base. Have slightly progressed from comparison. Trace pleural effu sions. No pneumothorax or overt pulmonary edema. Cardiomediastinal and hilar silhouettes are unchange d. Bones of the chest appear grossly intact. IMPRESSION: 1. Persistent right greater than left bibasilar alveolar opacities, slightly progressed on the left s uggestive of pneumonia. Continued follow-up recommended. 2. Trace pleural effusions. The above report was generated using voice recognition software. It may contain grammatical, syntax o r spelling errors. Electronically signed by: Singh Benavides M.D. 12/04/2018 8:26 AM
[2018-12-04] MEDS: NICOTINE 14 MG/24 HR PATCH TD SCH (08:46)
[2018-12-04] MEDS ORDERED: IOVERSOL 100ml IV PRN (09:30)
--- NOTE | 2018-12-04 09:49 | CT Scan Report ---
CHEST CT WITH CONTRAST CT DOSE: HISTORY: as per pulmonary service, for pneumonia TECHNIQUE: Multiaxial CT images of the chest were performed following the intravenous administration of contrast. A dose lowering technique was utilized adhering to the principles of ALARA. COMPARISON: Chest CT 10/25/2011. Abdomen and pelvis CT 12/02/2018. FINDINGS: Trace right pleural effusion. No pneumothorax. The central airways are patent. Dense consol idation involving the majority of the right lower lobe as well as consolidation within the left lower lobe posteriorly. This favors a pneumonia. Small linear density at the base of the lingula a represe nt atelectasis. There are 2 3 mm nodules within the right upper lobe on image 81 in the right middle lobe on image 163. These are stable and are therefore likely benign. No new pulmonary nodules identif ied. No suspicious lytic or blastic osseous lesions. Normal esophagus. The heart is normal in size. T he central pulmonary arteries are patent. Normal caliber thoracic aorta. The visualized liver and spl een are unremarkable. Mild mediastinal and right hilar lymphadenopathy. Dominant right hilar lymph no de measures 1.6 cm. IMPRESSION: 1. Redemonstration of the bilateral lower lobe airspace opacities consistent with a pneumonia. There is also trace right pleural effusion. Bronchoscopy can be used for further evaluation. In addition, a [address] follow-up is recommended to ensure resolution. 2. Mild mediastinal and right hilar lymphadenopathy. This may be reactive to the suspected pneumonia. Electronically signed by: Shine Belle M.D. 12/04/2018 9:48 AM
--- NOTE | 2018-12-04 13:40 | Consultation Report ---
DATE OF CONSULTATION: 12/04/2018 PULMONARY MEDICINE CONSULTATION REASON FOR CONSULTATION: Bronchopneumonia. HISTORY OF PRESENT ILLNESS: A 32-year-old white male who has been in relatively good health, but states this past Monday he began to feel poorly with fever, rigors, chills and right-sided upper quadrant as well as pleuritic type pain. He noted some sputum production that was thick with admixture of blood streaking as well. He has had a longstanding smoking history and was started at age 17 between 1 and 2 packs a day and continued to smoke up to his hospitalization. He states he has lost 30 pounds within the last month with poor appetite. He admits to some night sweats along with the rigors, but denies dyspnea with exertion. 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 No significant asbestos exposure. He has had multiple ER visits for right upper quadrant pain and underwent laparoscopic cholecystectomy in March 2018 and had to be hospitalized with right upper quadrant pain, subsequent to that that required just observation, he was seen by Dr. Livingston in consultation. The original surgery was performed by Dr. Brothers on 03/05/2018. He was seen by Dr. Livingston in consultation who did not feel that the patient's admission at that time was surgical in nature and it did resolve. He was admitted onto the hospitalist service and I have been consulted. His cough has been productive. His temperature was reached a high of 39.5. White count was 12,000 with a left shift. The patient was started on IV cefepime and IV Zithromax along with aerosolized bronchodilator. Because of the persistence of at least low-grade fever and symptoms, I was asked to see patient in consultation. He denies prior history of pneumonia, although has had bronchitis in the past. He has not received annual flu vaccines or Pneumovax vaccination. No significant travel history. Additional history, past medical history, medications, family and social history, I refer you to current and past record. PHYSICAL EXAMINATION: GENERAL: This is a well-developed, well-nourished white male in no obvious respiratory distress. VITAL SIGNS: Current blood pressure 109/70, pulse 75 and regular, respiratory rate 19, temperature 37.2, O2 sat 93% on room air. SKIN: Without lesion. HEENT: Atraumatic, normocephalic, PERRLA, EOMI. Conjunctivae pink. Sclerae nonicteric. Fundi poorly visualized. NECK: Neck veins are not distended at 45 degrees. No evidence of adenopathy in the supra or infraclavicular areas. LUNGS: Rales audible at both bases with egophony (E-A changes). No audible wheezing. CARDIAC: Regular rate and rhythm. I do not appreciate a gallop. ABDOMEN: Soft, protuberant. No evidence of hepatosplenomegaly. EXTREMITIES: No pedal edema, clubbing or cyanosis. Negative Homans sign. NEUROLOGICAL: Cranial nerves II-XII grossly intact. No lateralizing signs. LABORATORY DATA: Abdominal and pelvic CT scan on 12/02/2018 shows a dense airspace consolidation involving the right lower lobe with bronchograms as well as dependent consolidation at the left lung base and lingula with small pleural effusions. Subsequent CT scan with dedicated scan today shows bilateral lower lobe airspace opacities consistent with pneumonia, trace right pleural effusion, mild mediastinal and right hilar lymphadenopathy was noted, may be reactive versus other etiology. There were 2-3 mm nodules within the right upper lobe, linear density at the base of the lingula suggestive of atelectasis as well as left lower lobe basilar atelectasis/infiltrate. Other lab data: Blood cultures pending. On admission, white count was 12,700, H and H 15.7 and 44.3, platelet count was 124,000 on admission down to 101,000 currently with normalization of the white count. There was a leftward shift on admission. EKG on admission, sinus tachycardia, no acute changes. OVERALL ASSESSMENT: A 32-year-old white male smoker with dense right lower lobe consolidation and trace right pleural effusion as well as left basilar atelectasis/infiltrate and mediastinal hilar lymphadenopathy which may be reactive, presents with rigors, chills, persistent fever and persistent dense consolidation and mild hemoptysis. At this point in time, given the weight loss, smoking history, hemoptysis and persistence of dense consolidative changes, I will schedule the patient for bronchoscopic intervention tomorrow. No doubt, we will see an endobronchial obstruction and will copiously lavage the involved areas for both culture and to assist with pulmonary toilet.Suspect thrombocytopenia is related to Bone marrow suppression but could be drug induced.Will follow. MTDD
[2018-12-04] MEDS: AZITHROMYCIN 500 MG in DEXTROSE 5% 250 ML IV SCH (14:23)
--- NOTE | 2018-12-04 14:28 | Hospitalist Progress Note ---
Date of Service December 04, 2018 Assessment & Plan (1) Fever: (2) Pneumonia: Right middle Lobe pneumonia, Community Acquired Pneumonia -Pt presented with c/o productive cough, tactile fever, SOB x couple of days with upper abdominal pain x 1 day. In ER T: 39.5C, P: 105 down to 90, R: 22 down to 16, BP: 11/70, 95/52, 123/77, 93-96% on RA WBC: 12, H/H: 15/44, Plt: 12, Na: 131, glucose: 131, Lactate: 1.2; meets SIRS criteria -There is dense right middle lobe consolidation typical in appearance for pneumonia on CXR; CT ABD/PELVIS There is bibasilar consolidation, right greater than left with trace pleural effusions. The appearance is typical for pneumonia.otherwise no other abnormal abdomen imaging findings -In ER given 1500ml NSS, Dilaudid, morphine, Zofran, Toradol, cefepime IV, Azithromycin IV, albuterol neb -MRSA swab negative, influenza negative -continuing cefepime and Azithromycin since admission, initial admission blood culture no growth to date, but patient still spiking fevers by 12/03/18 and repeat blood cultures pending results, CT chest on 12/04/18 with bilateral lower lobe airspace opacities consistent with a pneumonia, trace right pleural effusion, Mild mediastinal and right hilar lymphadenopathy -patient has NPO after midnight orders for planned bronchoscopy by pulmonry Dr. Menjivar on 12/05/18 -nebulizers as prn for shortness of breath or wheezing but generally patient breathing comfortably on room air -encourage incentive spirometer, and ambulation (3) Abdominal pain: -C/O right upper abdominal pain and right lower chest pain -Normal LFTs, lipase, Normal lactate. WBC: 12 -CT ABD/PELVIS with IV contrast: There is bibasilar consolidation, right greater than left with trace pleural effusions. The appearance is typical for pneumonia. Radiographic follow-up to resolution is recommended. -No acute infectious or inflammatory findings are identified in the abdomen or pelvis. -likely symptoms are from pleuritic pain from pneumonia -pain medications as needed, incentive spirometer, encourage ambulation (4) Tobacco use: -Smoking cessation encouraged -Nicotine patch DVT Prophylaxis -Low risk, encouraged to Ambulate Subjective Patient was having high fevers yesterday, today no febrile temperatures as of yet. patient from time to time feels warm but he believes he is feeling a little better today. continues to be on room air. no chest pain, no palpitations, no abdomen pain, no vomiting, no nausea, no lightheadedness, no dizziness continuing cefepime and Azithromycin since admission, initial admission blood culture no growth to date, but patient still spiking fevers by 12/03/18 and repeat blood cultures pending results, CT chest on 12/04/18 with bilateral lower lobe airspace opacities consistent with a pneumonia, trace right pleural effusion, Mild mediastinal and right hilar lymphadenopathy -patient has NPO after midnight orders for planned bronchoscopy by pulmonry Dr. Menjivar on 12/05/18 Physical Exam Constitutional: WD/WN, vitals as above Eyes: PERRL, conjunctivae normal, anicteric sclerae EOM intact bilaterally ENMT: external ear and nose normal, oropharynx normal Neck: normal visual inspection Respiratory: normal respiratory effort no wheezing Cardiovascular: Rate/Rhythm: regular rate and regular rhythm Gastrointestinal (Abdomen): normal bowel sounds, soft, nontender, no hepatosplenomegaly Musculoskeletal: Head/Neck/Chest: normocephalic and head atraumatic Neurologic: PERRL, EOMI, accommodation nl, no face palsy, no dysarthria CN's II-XI intact bilaterally Psychiatric: A+Ox3, euthymic affect Results & Data Vital Signs (Past 12 Hours) Vital Signs Temp Pulse Resp BP Pulse Ox 12/04/18 11:47 37.5 C 73 21 95/59 L 94 12/04/18 07:08 37.2 C 75 19 109/70 93 12/04/18 03:54 37.4 C 79 20 108/68 93 (1) Fever Fever type: unspecified Qualified Code(s): R50.9 - Fever, unspecified (2) Pneumonia Laterality: right Lung location: lower lobe of lung Pneumonia type: due to unspecified organism Qualified Code(s): J18.1 - Lobar pneumonia, unspecified organism
[2018-12-04] MEDS: methylPREDNISolone 40 MG in SYRINGE 0 ML IV SCH (21:26)
[2018-12-05] MEDS: CEFEPIME 2,000 MG in SYRINGE 7.5 ML IV SCH ×3 (04:59→20:27)
[2018-12-05 07:37] LABS: Basophils # (auto) 0.01 K/uL (0-0.2); Basophils % (auto) 0.2 %; Eosinophils # (auto) 0.01 K/uL (0-0.5); Eosinophils % (auto) 0.2 %; Hematocrit (blood only) 42.8 % (42-52); Hemoglobin 14.9 g/dL (14.0-18.0); Immature Granulocytes # (auto) 0.01 K/uL (0.00-0.02); Immature Granulocytes % (auto) 0.2 %; Lymphocytes # (auto) 0.68 K/uL (1.2-3.4); Lymphocytes % (auto) 16.3 %; Mean Corpuscular Hgb Conc 34.8 g/dL (32-36); Mean Corpuscular Volume 85.4 fL (80-100); Mean Platelet Volume 10.6 fL (7.4-10.4); Monocytes # (auto) 0.24 K/uL (0.11-0.59); Monocytes % (auto) 5.8 %; Neutrophils # (auto) 3.22 K/uL (1.4-6.5); Neutrophils % (auto) 77.3 %; Platelet Count 153 K/uL (130-400); RDW Coefficient of Variation 13.2 % (11.5-14.5); RDW Standard Deviation 41.1 fL (36.4-46.3); Red Blood Count 5.01 M/uL (4.7-6.1); White Blood Count 4.17 K/uL (4.8-10.8)
[2018-12-05 07:50] LABS: Giant Platelets 1+
[2018-12-05 08:04] LABS: Albumin Globulin Ratio 0.7 (0.9-2); BUN Creatinine Ratio 20.7 (10-20); Bilirubin,Total 0.3 mg/dl (0.2-1); Calcium 8.9 mg/dl (8.5-10.1); Creatinine Clr Calc Pharmacy 196.5 ml/min; Est GFR (African American) 138.9; Est GFR (Non-African American) 119.9; Globulin 4.3 gm/dl (2.5-4.0); Potassium 4.4 mmol/L (3.5-5.1); Total Protein 7.3 gm/dl (6.4-8.2)
[2018-12-05] MEDS: SODIUM CHLORIDE 0.9% 1000ML 1,000 ML IV SCH (08:21)
[2018-12-05] MEDS: methylPREDNISolone 40 MG in SYRINGE 0 ML IV SCH ×2 (08:21→20:27)
[2018-12-05] MEDS: NICOTINE 14 MG/24 HR PATCH TD SCH (08:22)
[2018-12-05] MEDS ORDERED: OXYMETAZOLINE 0.05% 30 ML BTL ONE (09:04)
[2018-12-05] MEDS ORDERED: LIDOCAINE 4% INH SOLN 4 ML BTL NAE ONE (09:04)
--- NOTE | 2018-12-05 09:18 | History & Physical Bridge Note ---
Date of Service December 05, 2018 History & Physical Bridge Note I have examined the patient, reviewed the History & Physical and in the interval since the performance of the History & Physical I have noted the following changes of clinical significance: no changes noted Supervising Physician Co-Signing Physician Notes I saw this patient with the physician pathology assistant, I participated in the history, physical, review of systems, and physical exam. I reviewed the medications with the patient and the physician pathology assistant and helped reconcile the medications. I helped take a detailed family and social history as well. I formulated the as sessment and plan personally with the physician pathology assistant and went over it with the patient. ROS-No Headache, No Visual Changes, No Nausea, No Vomiting, +Fever, +Chills, No Neck Pain or Stiffness, +Chest Pain, No Palpitations, +SOB, +MARCOS, +Cough, +Sputum, No Wheezing, No Abdominal Pain, No Diarrhea, No Hematemesis, No Hemoptysis, No Unexpected Weight Loss, No Flank pain, No Melena, No Hematochezia, No Frequency, No Urgency, No Burning, No Hematuria, No Rashes, No Diaphoresis. Appetite is Normal Physical Exam Gen-AAO x 3, NAD, Febrile, Toxic, Clammy Head-NCAT, EOMI, PERRLA, Anicteric Sclera, No Posterior Pharyngeal Erythema Neck-Supple, No JVD, No Thyromegaly, No Masses, No LAD, No Bruits Lungs-Clear to Auscultation Bilaterally, L Rales, No Rhonchi, No Wheezing, No Crepitus Chest-No S4, +S1, +S2, No S3, No Murmurs, No Rubs, No Gallops, No Ectopy Abdomen-Soft, Bowel Sounds Present, Non Tender, Non Distended, No Hepatomegaly, No Splenomegaly, No Palpable Masses, No Rebound, No Rigidity, No Guarding Musculoskeletal-Full Range of Motion Bilaterally, No CVAT Extremities-No Cyanosis, No Clubbing, No Edema Nuero-Cranial Nerves II-XII grossly intact, Motor WNL, DTRs WNL, Strength WNL, Non Focal Psych-Normal Mood
--- NOTE | 2018-12-05 09:19 | Pre Anesthesia Assessment ---
Date of Service December 05, 2018 Pre Sedation Assessment Vital Signs Temp Pulse Pulse Pulse Resp BP BP 12/05/18 09:00 61 12 124/75 12/05/18 06:50 36.4 C L 64 18 101/63 12/05/18 04:25 36.5 C 56 L 20 108/72 12/05/18 01:45 63 12/04/18 22:48 37.1 C 68 21 110/68 12/04/18 19:00 37.5 C 76 21 110/72 12/04/18 15:20 37.5 C 76 18 100/58 L 12/04/18 11:47 37.5 C 73 21 95/59 L Pulse Ox 12/05/18 09:00 94 12/05/18 06:50 94 12/05/18 04:25 93 12/05/18 01:45 12/04/18 22:48 96 12/04/18 19:00 95 12/04/18 15:20 93 12/04/18 11:47 94 Cardiovascular RRR, no murmur, no edema + popliteal pulses present Respiratory normal respiratory effort, lungs clear to auscultation Pre-Sedation Airway Assessment Smoking Status: Current every day smoker Hx Sleep Apnea: No Short, Thick Neck: No Thyromental Distance: > or= 3.5 Finger Breadths Oral Cavity: + WNL Mallampati Class: II ASA: ASA2 NPO Status Date of Last Intake of Fluids: 12/04/18 Time of Last Intake of Fluids: 20:00 Date of Last Intake of Solid Food: 12/04/18 Time of Last Intake of Solid Foods: 20:00 Notes The planned sedation has been discussed with the patient. Informed Consent was obtained. I have identified the patient, determined the appropriateness of sedation and have assessed the patient immediately prior to the procedure. All medicine(s) and interventions are by my order. Supervising Physician Co-Signing Physician Notes I saw this patient with the physician email marketing assistant, I participated in the history, physical, review of systems, and physical exam. I reviewed the medications with the patient and the physician email marketing assistant and helped reconcile the medications. I helped take a detailed family and social history as well. I formulated the assessment and plan personally with the physician email marketing assistant and went over it with the patient. ROS-No Headache, No Visual Changes, No Nausea, No Vomiting, +Fever, +Chills, No Neck Pain or Stiffness, +Chest Pain, No Palpitations, +SOB, +MARCOS, +Cough, +Sputum, No Wheezing, No Abdominal Pain, No Diarrhea, No Hematemesis, No Hemoptysis, No Unexpected Weight Loss, No Flank pain, No Melena, No Hematochezia, No Frequency, No Urgency, No Burning, No Hematuria, No Rashes, No Diaphoresis. Appetite is Normal Physical Exam Gen-AAO x 3, NAD, Febrile, Toxic, Clammy Head-NCAT, EOMI, PERRLA, Anicteric Sclera, No Posterior Pharyngeal Erythema Neck-Supple, No JVD, No Thyromegaly, No Masses, No LAD, No Bruits Lungs-Clear to Auscultation Bilaterally, L Rales, No Rhonchi, No Wheezing, No Crepitus Chest-No S4, +S1, +S2, No S3, No Murmurs, No Rubs, No Gallops, No Ectopy Abdomen-Soft, Bowel Sounds Present, Non Tender, Non Distended, No Hepatomegaly, No Splenomegaly, No Palpable Masses, No Rebound, No Rigidity, No Guarding Musculoskeletal-Full Range of Motion Bilaterally, No CVAT Extremities-No Cyanosis, No Clubbing, No Edema Nuero-Cranial Nerves II-XII grossly intact, Motor WNL, DTRs WNL, Strength WNL, Non Focal Psych-Normal Mood
[2018-12-05] MEDS ORDERED: LIDOCAINE HCL 2% (LOCAL) INJ 50 ML VIAL INFIL STA (09:42)
[2018-12-05] MEDS ORDERED: fentaNYL citrate 100 MCG/2 ML VIAL IV ONE (09:42)
[2018-12-05] MEDS ORDERED: LIDOCAINE HCL VISCOUS SOLN 2% 15 ML UDC TOP ONE (09:42)
[2018-12-05] MEDS ORDERED: LEVALBUTEROL HCL 1.25 MG/3 ML NEB NEB STA (09:42)
[2018-12-05] MEDS ORDERED: MIDAZOLAM HCL 1 MG/ML 2ML VIAL IV STA (09:42)
--- NOTE | 2018-12-05 09:47 | Post Operative Brief Note ---
Immediate Post Op Note v1 Date of Surgery December 05, 2018 Pre & Post Diagnosis Operation Date: 12/05/18 10:00 Pre-Op Diagnosis: Bronchopneumonia,hemoptysis Post-Op Diagnosis: Bronchopneumonia,hemoptysis Procedure Operation Date: 12/05/18 10:00 Actual Procedures p Bronchoscopy Radiology(Bilateral) - Stanley Menjivar MD Surgeon Stanley Menjivar MD Scarfing Machine Operator none Estimated Blood Loss 0 Findings Consistent with Post-Op Diagnosis Bronchopneumonia No active bleeding noted Complications none Disposition Accompanied Patient To Recovery: No Overlapping Procedure I was present for: the critical portions of procedure. I was immediately available: during the entire case. Back up surgeon: was not required during procedure.
--- NOTE | 2018-12-05 09:47 | Post Anesthesia Assessment ---
Date of Service December 05, 2018 Post Sedation Assessment Vital Signs Temp Pulse Pulse Pulse Resp BP BP 12/05/18 09:40 117 H 16 163/86 H 12/05/18 09:35 105 H 16 115/85 12/05/18 09:30 74 14 132/83 12/05/18 09:25 66 14 136/84 12/05/18 09:20 59 L 12 135/81 12/05/18 09:00 61 12 124/75 12/05/18 06:50 36.4 C L 64 18 101/63 12/05/18 04:25 36.5 C 56 L 20 108/72 12/05/18 01:45 63 12/04/18 22:48 37.1 C 68 21 110/68 12/04/18 19:00 37.5 C 76 21 110/72 12/04/18 15:20 37.5 C 76 18 100/58 L 12/04/18 11:47 37.5 C 73 21 95/59 L Pulse Ox 12/05/18 09:40 96 12/05/18 09:35 96 12/05/18 09:30 96 12/05/18 09:25 97 12/05/18 09:20 96 12/05/18 09:00 94 12/05/18 06:50 94 12/05/18 04:25 93 12/05/18 01:45 12/04/18 22:48 96 12/04/18 19:00 95 12/04/18 15:20 93 12/04/18 11:47 94 Recovery Score Activity: Moves 4 extremities Respiration: Deep Breath/Cough Circulation: +/-20% PreAnes Value Consciousness: Arouseable (by name) Oxygen Saturation: O2 needed for >90% Discharge Sedation Level of Care: Fast Track Phase II Post Sedation Plan On clinical assessment, the patient appears to have tolerated the sedation without complications. Patient is recovering as anticipated. Patient will continue to be monitored by nursing and may be discharged when sedation discharge criteria are met per below protocol. Upon Completions of procedure and additional 15 minutes continue every 5 minute vital signs and the P.A.R. score; then discharge to a Phase I or Fast Track to Phase II per the following guidelines: * Discharge Patient to appropriate Phase II area if PAR is 8 or greater or return to pre- procedure baseline. The post - procedure orders will be as directed. * If PAR score is less than 8 or not return to pre-procedure baseline then patient will follow Phase I monitoring till PAR is reached for Phase II. The Phase I may be done in procedure room or may call to secure a Phase I area. * If naloxone or flumazenil are used for reversal, hold in Phase I for continued monitoring from when last reversal dose was given for a minimum of 60 minutes or longer pending the nurse and/or physician discretion of patient condition before discharge to Phase II. Please call the Sedation Physician to re-evaluate and complete post-note for discharge to Phase II area. Do NOT discharge from procedure sedation or Phase 1 until post- sedation evaluation note is complete by procedure /sedation MD Sedation Discharge Instructions to be given to the patient at discharge to home. Supervising Physician Co-Signing Physician Notes I saw this patient with the physician family law legal assistant, I participated in the history, physical, review of systems, and physical exam. I reviewed the medications with the patient and the physician family law legal assistant and helped reconcile the medications. I helped take a detailed family and social history as well. I formulated the assessment and plan personally with the physician family law legal assistant and went over it with the patient. ROS-No Headache, No Visual Changes, No Nausea, No Vomiting, +Fever, +Chills, No Neck Pain or Stiffness, +Chest Pain, No Palpitations, +SOB, +MARCOS, +Cough, +Sputum, No Wheezing, No Abdominal Pain, No Diarrhea, No Hematemesis, No Hemoptysis, No Unexpected Weight Loss, No Flank pain, No Melena, No Hematochezia, No Frequency, No Urgency, No Burning, No Hematuria, No Rashes, No Diaphoresis. Appetite is Normal Physical Exam Gen-AAO x 3, NAD, Febrile, Toxic, Clammy Head-NCAT, EOMI, PERRLA, Anicteric Sclera, No Posterior Pharyngeal Erythema Neck-Supple, No JVD, No Thyromegaly, No Masses, No LAD, No Bruits Lungs-Clear to Auscultation Bilaterally, L Rales, No Rhonchi, No Wheezing, No Crepitus Chest-No S4, +S1, +S2, No S3, No Murmurs, No Rubs, No Gallops, No Ectopy Abdomen-Soft, Bowel Sounds Present, Non Tender, Non Distended, No Hepatomegaly, No Splenomegaly, No Palpable Masses, No Rebound, No Rigidity, No Guarding Musculoskeletal-Full Range of Motion Bilaterally, No CVAT Extremities-No Cyanosis, No Clubbing, No Edema Nuero-Cranial Nerves II-XII grossly intact, Motor WNL, DTRs WNL, Strength WNL, Non Focal Psych-Normal Mood
[2018-12-05] MEDS ORDERED: AZITHROMYCIN 250 MG TAB PO SCH (14:00)
[2018-12-05] MEDS: AZITHROMYCIN 250 MG TAB PO SCH (15:54)
--- NOTE | 2018-12-05 19:24 | Hospitalist Progress Note ---
Date of Service December 05, 2018 Assessment & Plan (1) Pneumonia: Cough & dyspnea improved. Bronchoscopy performed- results pending. Continue antibiotics and steroids. (2) Abdominal pain: Resolved. (3) DVT prophylaxis: Low risk for VTE per IMPROVE risk assessment model. VTE prophylaxis not indicated. Ambulate. (4) Discharge planning issues: Anticipated discharge to home. Internal Medicine follow-up with Dr. Woodward. Subjective Recheck for pneumonia and other problems. Patient seen in their room around 1900. Bronchoscopy performed earlier today by Dr. Menjivar. The procedure went well. Persistent cough, but not as severe. No further hemoptysis. Review of Systems: Constitutional- no fever. Cardiac- no chest pain. Pulmonary- as noted above. GI- no nausea, vomiting, diarrhea, melena, hematochezia. - no urinary symptoms. Otherwise, as noted above. Physical Exam Constitutional: no acute distress Respiratory: no respiratory distress Auscultation: + rhonchi and + wheezes Cardiovascular: Rate/Rhythm: regular rate and regular rhythm Heart Sounds: no gallop, no murmur and no cardiac rub Vessels: no JVD Extremities: no calf tenderness and no edema Gastrointestinal (Abdomen): normal bowel sounds, soft, nontender, no hepatosplenomegaly Skin: no rashes, warm and dry Psychiatric: Orientation: alert and oriented x 3 Results & Data Vital Signs (Past 12 Hours) Vital Signs Temp Pulse Pulse Resp BP BP Pulse Ox 12/05/18 15:15 110 H 12/05/18 15:11 36.5 C 77 18 112/70 93 12/05/18 14:00 92 12/05/18 11:14 36.4 C L 79 16 103/68 90 12/05/18 10:42 36.5 C 89 16 105/68 87 L 12/05/18 09:50 96 H 18 115/94 91 12/05/18 09:45 101 H 18 124/87 92 12/05/18 09:40 117 H 16 163/86 H 96 12/05/18 09:35 105 H 16 115/85 96 12/05/18 09:30 74 14 132/83 96 12/05/18 09:25 66 14 136/84 97 12/05/18 09:20 59 L 12 135/81 96 12/05/18 09:00 61 12 124/75 94 (1) Pneumonia Laterality: right Lung location: lower lobe of lung Pneumonia type: due to unspecified organism Qualified Code(s): J18.1 - Lobar pneumonia, unspecified organism
--- NOTE | 2018-12-05 22:52 | Operative Report ---
DATE OF OPERATION: 12/05/2018 TIME: 0900 hours. PROCEDURE: Fiberoptic bronchoscopy with bronchoalveolar lavage. INDICATIONS: Bilateral bronchopneumonia, right greater than left, with hemoptysis. ANESTHESIA PREOPERATIVELY: None. ANESTHESIA DURING PROCEDURE: IV fentanyl 150 mcg, IV Versed 9 mg, 20 mL of 2% Xylocaine spray above and below the cords, 4% viscous Xylocaine intranasally. DESCRIPTION OF PROCEDURE: Moderate conscious sedation was implemented at 0922 hours and completed at 0942 hours. Fiberoptic bronchoscope was inserted into the right naris with minimal difficulty and passed to the level of the true vocal cords. The cords appeared to approximate normally with phonation without evidence of lesions or paralysis. The cords were anesthetized. The scope was then introduced in the trachea and right and left tracheobronchial tree. Initially at the level of the ruby, there was some dried blood seen adherent to both the ruby and the posterior wall of the trachea just superior to the ruby. This was aspirated until clear. The right mainstem bronchus was explored initially and no endobronchial lesions were seen. The right upper lobe, the apical posterior and anterior segments, bronchus intermedius, right middle lobe, the medial and lateral segments and all basilar segments of right lower lobe showed evidence for global inflammatory mucosal changes, especially at the takeoff of the right lower lobe orifice, but no active bleeding was encountered. No endobronchial lesions were seen after completing the examination down to the subsegmental bronchi. The right lower lobe basal segments were copiously lavaged with normosol and the aspirate sent for appropriate studies. The left tracheobronchial tree was then explored. No obvious bleeding and no endobronchial lesions were seen. The left upper lobe at the apical-posterior and anterior segments, lingular subdivision, the superior and inferior segments and all basilar segments of left lower lobe were free of endobronchial lesions down to subsegmental bronchi with once again no active bleeding encountered and each basilar segment of the left lower lobe was copiously lavaged with normosol and the aspirate sent for appropriate studies. No brushings or biopsies were deemed necessary. The procedure was terminated. The patient was given a nebulizer treatment of Xopenex 1.25 mg and then transferred back to the medical floor, hemodynamically stable, no signs of respiratory compromise. Will await microbiological and cytologic examination of the bronchial washings. OVERALL ASSESSMENT: 1. Bibasilar consolidation, right greater than left, with hemoptysis. 2. No evidence for active bleeding. 3. No evidence for obstruction. I attest to the content of the Intraoperative Record and any orders documented therein. Any exception s are noted below.
[2018-12-06] MEDS: CEFEPIME 2,000 MG in SYRINGE 7.5 ML IV SCH ×2 (03:59→12:00)
[2018-12-06] MEDS: methylPREDNISolone 40 MG in SYRINGE 0 ML IV SCH (08:27)
[2018-12-06] MEDS: SODIUM CHLORIDE 0.9% 1000ML 1,000 ML IV SCH (08:28)
[2018-12-06] MEDS: NICOTINE 14 MG/24 HR PATCH TD SCH (08:28)
--- NOTE | 2018-12-06 09:11 | XRay Report ---
XR chest 2V routine CLINICAL HISTORY: Bronchopneumonia pneumonia COMPARISON STUDY: 12/04/2018 FINDINGS: Improving consolidative infiltrate right base. Slight improvement of the left basilar paren chymal infiltrate. Slight residual blunting left lateral costophrenic angle. IMPRESSION: Mild improvement of the patient's bibasilar parenchymal infiltrates. Moderate residual. The above report was generated using voice recognition software. It may contain grammatical, syntax or spelling errors. Electronically signed by: Ezio Gonzalez M.D. 12/06/2018 9:10 AM
--- NOTE | 2018-12-06 13:44 | Progress Note ---
DATE: 12/06/2018 PULMONARY MEDICINE PROGRESS NOTE Chart reviewed, the patient examined. SUBJECTIVE: Much improved, minimal cough. No pleuritic pain, has been afebrile. No further hemoptysis. OBJECTIVE: VITAL SIGNS: Blood pressure 108/69, pulse 58 and regular, respiratory rate 18, temperature 36.9, O2 sat 94% on room air. SKIN: Warm and dry. HEENT: Atraumatic, normocephalic, PERRLA, EOMI. Conjunctivae pink. Sclerae nonicteric. Fundi poorly visualized. NECK: Neck veins not distended at 45 degrees. LUNGS: Improved aeration in right base with 1 scattered wheeze. CARDIAC: Regular rate and rhythm. No murmurs or gallops. ABDOMEN: Soft, protuberant. EXTREMITIES: No pedal edema, clubbing or cyanosis. LABORATORY DATA: White count 4100. Serologies pending. Culture is pending from the bronchial washing. Chest x-ray today shows mild improvement in the bibasilar parenchymal infiltrates with improving consolidative infiltrate in the right base. OVERALL ASSESSMENT: A 32-year-old with community-acquired pneumonia, bibasilar with significant consolidation, right greater than left, marked improvement clinically and would discharge the patient on an additional 7-10 days of Levaquin with a prednisone taper. I would be happy to see patient in consultation to make sure the patient has continued to clinically improve and we will repeat chest x-ray within a week to make sure the patient is not developing an organized pneumonia. [facility] CENTERColin
--- NOTE | 2018-12-06 15:38 | Hospitalist Progress Note ---
Date of Service December 06, 2018 Assessment & Plan (1) Pneumonia: Cough & dyspnea improved. Bronchoscopy performed- results pending. Received antibiotics and steroids with improvement. Discharge on levofloxacin and prednisone taper. Outpatient follow-up with Dr. Menjivar to discuss bronch results and arrange for f/u imagin. (2) Abdominal pain: No acute findings on CT. Resolved. (3) Smoking: Importance of smoking cessation discussed. Patient is committed to quitting. (4) DVT prophylaxis: Low risk for VTE per IMPROVE risk assessment model. VTE prophylaxis not indicated. Ambulate. (5) Discharge planning issues: Discharge to home. Internal Medicine follow-up with Dr. Woodward. Pulmonary Medicine follow-up with Dr. Menjivar. Subjective Recheck for pneumonia and other problems. Patient seen in their room around 1520. Doing well. No fever or sweats. Cough improved, nonproductive. Ambulating without significant SOB. No nausea, vomiting, diarrhea. Physical Exam Constitutional: no acute distress Respiratory: no respiratory distress Auscultation: + rhonchi (few scattered) and + wheezes (mild) Cardiovascular: Rate/Rhythm: regular rate and regular rhythm Heart Sounds: no gallop, no murmur and no cardiac rub Vessels: no JVD Extremities: no calf tenderness and no edema Gastrointestinal (Abdomen): normal bowel sounds, soft, nontender, no hepatosplenomegaly Skin: no rashes, warm and dry Psychiatric: Orientation: alert and oriented x 3 Results & Data Vital Signs (Past 12 Hours) Vital Signs Temp Pulse Pulse Resp BP BP Pulse Ox 12/06/18 15:03 36.6 C 65 18 114/72 94 12/06/18 11:14 36.9 C 58 L 18 108/69 94 12/06/18 07:26 78 12/06/18 07:19 36.7 C 77 16 113/64 93 12/06/18 04:00 36.5 C 64 20 139/72 93 (1) Pneumonia Laterality: right Lung location: lower lobe of lung Pneumonia type: due to unspecified organism Qualified Code(s): J18.1 - Lobar pneumonia, unspecified organism
[2018-12-06] MEDS: AZITHROMYCIN 250 MG TAB PO SCH (15:53)
[2018-12-06 20:12] LABS: HSV Type 1 DNA Not Detected (Not Detected); HSV Type 2 DNA Not Detected (Not Detected)
--- NOTE | 2018-12-07 07:01 | Discharge Summary ---
Date of Service Date of Admission: 12/02/18 Date of Discharge: 12/06/18 Admission HPI Per Admitting Provider Pt is 32 y/o M with PMH GERD, tobacco use resented to ER with complaint of abdominal pain, cough and fever. Patient reports past 3 days with cough productive of yellow sputum. Tactile fevers for the past 2 days. Yesterday started with upper abdominal pain that radiates around flank and back. Reports some shortness of breath. States the past 3 days with decreased appetite and poor oral intake. Last BM 2-3 days ago. Tried taking Tylenol at home with limited relief. Denies ill contacts. Denies recent travel. Denies injury/trauma, recent surgery. Denies recent antibiotic use. History of cholecystectomy 2017. Denies vomiting, RENTERIA, dizziness, syncope, vision changes, neck pain, orthopnea, palpitations, hemoptysis, sore throat, choking, otalgia, rhinorrhea, extremity weakness, extremity edema, rashes, urinary symptoms. Principal Diagnosis pneumonia, RLL - community acquired Discharge Data Allergies Allergy/AdvReac Type Severity Reaction Status Date / Time No Known Allergies Allergy Verified 12/02/18 14:28 Consultations 12/02/18 15:01 ED Decision to Admit Stat 12/04/18 08:52 Consult Pulmonology Routine Procedures Performed Operation Date: 12/05/18 10:00 Actual Procedures p Bronchoscopy Radiology(Bilateral) - Stanley Menjivar MD Ordered Studies 12/02/18 13:11 CT abd pelvis IV con only Stat 12/04/18 08:54 CT chest w con Routine Hospital Course (1) Pneumonia: Cough & dyspnea improved. Bronchoscopy performed- results pending. Received antibiotics and steroids with improvement. Blood cultures and sputum culture negative. Influenza PCR negative. Legionella, mycoplasma, Aspergillus serologies pending. Discharge on levofloxacin and prednisone taper. Outpatient follow-up with Dr. Menjivar to discuss bronch results and arrange for f/u imaging. (2) Sepsis: Met criteria for sepsis per current CMS guidelines - fever, tachycardia, leukocytosis. Blood cultures drawn and broad spectrum antibiotic therapy adminsitered. Systolic BP's > 90. Lactic acid 1.2. Source = pneumonia. (3) Abdominal pain: No acute findings on CT. Resolved. (4) Smoking: Importance of smoking cessation discussed. Patient is committed to quitting. (5) DVT prophylaxis: Low risk for VTE per IMPROVE risk assessment model. VTE prophylaxis not indicated. Ambulate. (6) Discharge planning issues: Discharge to home. Internal Medicine follow-up with Dr. Woodward. Pulmonary Medicine follow-up with Dr. Menjivar. Total Time Total Time Spent Total Time Spent (In Minutes): 35 Discharge Plan Discharge Items Patient Disposition: Home - Self-Care Reason For Visit: PNEUMONIA Discharge Diagnosis: pneumonia Condition: Good Discharge Goals: Decrease discomfort and Improve disease control Activity: As commented below Activity Comment: gradually increase activity as tolerated Non-emergency contact: Primary Care Provider, Hospitalist and Roll Scale Man Call non-emergency contact if: you have any medication questions, your symptoms worsen and your temperature is above 101 Follow-up/Referrals: Stanley Menjivar MD [Physician] - (Office will contact you with appointment.) Kenton Woodward DO [Primary Care Provider] - (12/17/2018 11:20 AM Kenton Woodward DO) Diet: Regular Addtl Provider Instructions: MEDICATION CHANGES: levofloxacin (Levaquin) antibiotic for pneumonia prednisone steroid for inflammation in bronchial tree taper as instructed: 4 pills (40 mg) for 2 days 3 pills (30 mg) for 2 days 2 pills (20 mg) for 2 days 1 pill (10 mg) for 2 days then stop SUMMARY OF TEST RESULTS: Chest x-ray and CT showed pneumonia. PENDING TEST RESULTS: Results from bronchoscopy. Dr. Menjivar will review results with you. RECOMMENDATIONS FOR FOLLOW-UP: Please quit smoking. Discuss with Dr. Woodward if you have trouble quitting. Dr. Menjivar or Dr. Woodward will arrange for follow-up x-ray or CT scan to make certain that pneumonia clears up. OTHER INSTRUCTIONS: Seek medical attention if you have: * temperature above 101 * chest pain or trouble breathing * abdominal pain, nausea, vomiting * diarrhea, dark stools or bloody stools * any unanswered questions or concerns Call 911 if symptoms are severe. Please take good care of yourself. Call if you have any questions or problems. You can reach a [facility] hospitalist on duty at [facility] 24 hours a day by calling [phone]. My cell # is [phone]. Prescriptions: New levofloxacin 750 mg tablet 750 mg PO DAILY 6 Days Qty: 6 RF: 0 prednisone 10 mg tablet See Rx Instructions .ROUTE .COMPLEX Qty: 20 RF: 0 Continued omeprazole 20 mg Tablet,Delayed Release (Dr/Ec) 20 mg PO DAILY PRN (Reason: Acid Reflux) RF: 0 Visit Report Forms: Smoking Cessation Stand-Alone Forms: Call Back Authorization, [facility], Work/School Release (Inpt) Discharge Orders: Discharge Order (Routine); Ordered 12/06/18 Ordered By: Dom Oglesby Admission Data Admit Date/Time: 12/02/18 15:49 Attending Provider: Dom Oglesby Admit Provider: Robert Mistry Primary Care Provider: Kenton Woodward Other Providers: Robert Mistry ; Stanley Menjivar ; Robert Briones Service: Telemetry Medical Other Interventions: Discharge Summary Assessment (RN) Last Done: 12/06/18 16:12 DC Date/Time DO NOT enter until pt leaves facility: 12/06/18 16:37
--- NOTE | 2018-12-07 12:17 | Coding Query ---
CODING QUERY To promote full compliance with coding requirements relating to patient care, provider participation is requested in all cases of trauma director uncertainty. Please assist us with the question(s) below: Coding Question(s): The H&P documents that patient met SIRS criteria and the Discharge Summary documents Sepsis. Please clarify below, in your clinical opinion to determine between SIRS or Sepsis and confirm the POA status if there is Sepsis. ( x ) Sepsis (x ) Present on Admission ( ) Not Present on Admission ( ) Undetermined if POA ( ) SIRS only - No Sepsis Physician's Response(s): Thank you Migdalia Villela Principal Diagnosis: "that condition established after study, to be chiefly responsible for occasioning the admission of the patient to the hospital for care." Co-Existing Principal Diagnosis: "when two or more diagnoses equally meet the criteria for principal diagnosis as determined by the circumstances of admission, diagnostic work up, and/or therapy provided, and the Alphabetic Index, Tabular List, or another coding guideline does not provide sequencing direction, any one of the diagnoses may be sequenced first." "When the physician has documented what appears to be a current diagnosis in the body of the record, but has not included the diagnosis in the final diagnostic statement, the physician should be asked whether the diagnosis should be added." (Source Coding [facility] 2 QTR90. p3-4) HEATH
[2018-12-07 14:33] LABS: CMV DNA Qnt Real Time PCR <200 IU/mL (<200); CMV DNA Quant PCR <2.30 log IU/mL (<2.30)
[2018-12-08 13:25] LABS: Aspergillus Ag Index 0.05 (<0.50); Aspergillus Antigen, Serum Not Detected (Not Detected); Aspergillus Flavus Negative (Negative); Aspergillus Niger Negative (Negative); Legionella pneumoph IgM, IFA <1:256 TITER; Mycoplasma pneumoniae Ab, IgG 2.91 (<=0.90); Mycoplasma pneumoniae Ab, IgM 260 U/mL (<770)
== END 2018-12-06 16:37 | disposition home or self-care (01) | DRG 853 ==
LOC: ED 12:51 → SUATTDRO 15:49 → 2W 15:49

== ENCOUNTER 2018-12-18 16:51 | Inpatient (IN) ==
--- NOTE | 2018-12-18 17:26 | XRay Report ---
XR chest 1V portable HISTORY: Atypical Chest Pain COMPARISON: Chest 12/12/2018. FINDINGS: Improvement in the right perihilar and left base airspace opacities. This likely represents a resolving pneumonia. No pneumothorax. No pleural effusions. A few linear densities at the left low er lobe favor subsegmental atelectasis. The heart is normal in size. There are low lung volumes. IMPRESSION: Slight improved aeration within the right perihilar and left base airspace opacities. This favors a r esolving pneumonia. One-month chest x-ray follow-up is recommended to ensure complete resolution. Electronically signed by: Shine Belle M.D. 12/18/2018 5:25 PM
[2018-12-18 17:44] LABS: Basophils # (auto) 0.08 K/uL (0-0.2); Basophils % (auto) 0.5 %; Eosinophils # (auto) 0.28 K/uL (0-0.5); Eosinophils % (auto) 1.9 %; Hematocrit (blood only) 43.5 % (42-52); Hemoglobin 14.9 g/dL (14.0-18.0); Immature Granulocytes # (auto) 0.04 K/uL (0.00-0.02); Immature Granulocytes % (auto) 0.3 %; Lymphocytes # (auto) 3.94 K/uL (1.2-3.4); Lymphocytes % (auto) 26.6 %; Mean Corpuscular Hgb Conc 34.3 g/dL (32-36); Mean Corpuscular Volume 88.2 fL (80-100); Mean Platelet Volume 10.3 fL (7.4-10.4); Monocytes % (auto) 8.1 %; Neutrophils # (auto) 9.25 K/uL (1.4-6.5); Neutrophils % (auto) 62.6 %; Platelet Count 187 K/uL (130-400); RDW Coefficient of Variation 13.9 % (11.5-14.5); Red Blood Count 4.93 M/uL (4.7-6.1); White Blood Count 14.79 K/uL (4.8-10.8)
[2018-12-18 18:00] LABS: Alanine Aminotransferase 62 U/L (12-78); Albumin Level 3.3 gm/dl (3.4-5.0); Aspartate Aminotransferase 14 U/L (15-37); BUN Creatinine Ratio 24.5 (10-20); Blood Urea Nitrogen 23 mg/dl (7-18); Calcium 8.4 mg/dl (8.5-10.1); Carbon Dioxide 25 mmol/L (21-32); Chloride 109 mmol/L (98-107); Creatinine Clr Calc Pharmacy 155.7 ml/min; Est GFR (African American) 119.9; Est GFR (Non-African American) 103.4; Glucose 85 mg/dl (70-99); Potassium 3.7 mmol/L (3.5-5.1); Sodium 141 mmol/L (136-145)
[2018-12-18] MEDS ORDERED: ONDANSETRON INJ 2 MG/ML 2 ML VIAL IV STA (18:02)
[2018-12-18 18:05] LABS: Alkaline Phosphatase 53 U/L (45-117); Bilirubin,Total 0.4 mg/dl (0.2-1); Globulin 3.4 gm/dl (2.5-4.0); Total Protein 6.7 gm/dl (6.4-8.2); Troponin I < 0.015 ng/ml (0-0.045)
[2018-12-18] MEDS: HYDROmorphone INJ 0.5 MG/0.5 ML SYR IV PRN ×2 (18:06→21:34)
[2018-12-18] MEDS ORDERED: OPTIRAY 320 125ml IV PRN (18:15)
--- NOTE | 2018-12-18 18:32 | CT Scan Report ---
CT ANGIOGRAM OF THE CHEST CLINICAL HISTORY: Atypical chest pain. COMPARISON STUDY: Chest CT scans dated 12/04/2018 and 10/25/2011. Chest x-ray dated 12/18/2018. TECHNIQUE: Following the IV administration of 80 cc of Optiray 320, CT angiogram of the chest was per formed from the upper abdomen to the thoracic inlet utilizing the pulmonary embolus protocol. Images are reviewed in the axial, sagittal, and coronal planes. 3-D MIPS images are created and assessed. IV contrast was administered without complication. A dose lowering technique was utilized adhering to the principles of ALARA. CT DOSE: 842.71 mGy.cm FINDINGS: Thyroid: Imaged portions of the thyroid gland are normal in size and attenuation. Thoracic aorta: The thoracic aorta is normal in caliber and demonstrates standard 3-vessel arch anato my. No dissection is seen. Pulmonary vasculature: The pulmonary trunk is normal in caliber. There are several segmental and subs egmental filling defects identified within branches of the right upper, right middle, and right lower lobe pulmonary arteries. These are consistent with pulmonary emboli. The main and lobar branches are patent. No left-sided pulmonary emboli are clearly identified. Heart: The heart is normal in size and without pericardial effusion. Lungs and pleural spaces: There are trace pleural effusions with dependent consolidation. A small sub pleural wedge-shaped foci of consolidation in the right middle lobe seen image #58 is consistent with a tiny pulmonary infarct. The trachea and central airways are clear. A 4 mm right middle lobe pulmon hermelindo nodule on image 125 is unchanged and of doubtful significance. Mediastinum: There are scattered subcentimeter mediastinal lymph nodes. These are not pathologically enlarged by size criteria. [place]: Clear. Axillae: There is no axillary lymphadenopathy. Upper abdomen: Cholecystectomy clips are noted. There is a tiny hiatal hernia. Partially imaged upper abdominal viscera is otherwise grossly normal. Skeletal structures: No lytic or blastic bony lesions are seen. IMPRESSION: 1. There are segmental and subsegmental pulmonary emboli within branches of the right upper, right mi ddle, and right lower lobe pulmonary arteries. 2. A subpleural wedge shaped focus of consolidation in the right middle lobe is consistent with a sma ll pulmonary infarct. 3. There are trace pleural effusions with dependent consolidation. This likely represents atelectasis . Infection versus pulmonary infarct is not excluded and clinical correlation will be required. Electronically signed by: Osito Bennett M.D. 12/18/2018 6:31 PM
[2018-12-18] MEDS ORDERED: HEPARIN SODIUM/DEXTROSE 25,000 UNITS/500 ML BAG IV SCH (18:45)
[2018-12-18 19:08] LABS: Prothrombin Time 10.4 Seconds (9.0-12.0)
--- NOTE | 2018-12-18 19:16 | Ultrasound Report ---
ULTRASOUND LEFT LOWER EXTREMITY VENOUS CLINICAL HISTORY: Left leg pain. Pulmonary embolus. COMPARISON STUDY: Chest CT dated 12/18/2018. TECHNIQUE: Real-time, grayscale, and color Doppler sonography of the deep veins of the left lower ext remity was performed from the inguinal crease to the calf. Compression and augmentation were utilized . FINDINGS: There is no sonographic evidence of deep venous thrombosis identified in the left lower ext remity. The common femoral, superficial femoral, and popliteal veins are patent and normally compress ible. The greater saphenous vein and the profunda femoris vein at the junction with the common femora l vein are clear. The visualized calf veins are patent. Occlusive superficial venous thrombus is iden tified within the venous varicosities in the left calf. This extends approximately 6 cm in length. IMPRESSION: 1. There is no sonographic evidence of deep venous thrombosis identified in the left lower extremity. 2. There is occlusive superficial venous thrombus identified within the venous varicosities in the le ft calf. Electronically signed by: Osito Bennett M.D. 12/18/2018 7:15 PM
[2018-12-18] MEDS: HEPARIN SOD 5,000 UNIT/0.5 ML VIAL ONE ×2 (19:47→19:49)
[2018-12-18] MEDS ORDERED: HEPARIN SOD (PORCINE) 1000 UNIT/ML 10 ML VIAL ONE (19:49)
[2018-12-18] MEDS: Heparin Adult STANDARD Wt-Based Dextrose 5% 25,000 units/500 mL IV SCH ×2 (21:32→23:48)
--- NOTE | 2018-12-18 22:03 | History and Physical Report ---
DATE OF ADMISSION: 12/18/2018 CHIEF COMPLAINT: Chest pain. HISTORY OF PRESENT ILLNESS: This is a 32-year-old male with past medical history significant for Dictation Ends Here
[2018-12-18] MEDS ORDERED: ACETAMINOPHEN 325 MG TAB PO PRN (22:43)
[2018-12-18] MEDS ORDERED: PANTOprazole 40 MG TAB PO PRN (22:43)
[2018-12-18] MEDS ORDERED: NITROGLYCERIN SL 0.4 MG/TAB TAB SL PRN (22:43)
[2018-12-18] MEDS ORDERED: ONDANSETRON INJ 2 MG/ML 2 ML VIAL IV PRN (22:43)
--- NOTE | 2018-12-18 23:22 | History and Physical Report ---
DATE OF ADMISSION: 12/18/2018 CHIEF COMPLAINT: Right-sided chest pain. HISTORY OF PRESENT ILLNESS: This is a 32-year-old male with past medical history significant for eosinophilia, back pain, family history of hemochromatosis, who was recently in the hospital and discharged on 12/07/2018 for pneumonia. At that time bronchoscopy was performed and was discharged on Levaquin and prednisone and bronchoscopy was unremarkable. He says he still has pulmonary symptoms and recently seen by pulmonary as out patient and was started on Augmentin and prednisone taper, he has 5 more days of Augmentin. But he is having severe right-sided chest pain. Taking deep breath is causing more pain. Last night he only slept 3 hours. He is getting shortness of breath all the time. No cough, no fever, no chills, no nausea, no vomiting, no abdominal pain. Appetite is down. Denies any diarrhea or constipation. No blood in the stool, no black stools, no hematuria, no burning micturition. No headache, no blurred vision, no earache, no runny nose, no sore throat, no difficulty swallowing. Currently resting comfortably and hemodynamically stable. No rash seen. Imaging studies in the ER showed segmental and subsegmental pulmonary emboli within the branches of the right upper, right middle, and right lower lobe pulmonary arteries. Right middle lobe small pulmonary infarct. Currently, the patient is resting comfortably and hemodynamically stable. ALLERGIES: No known drug allergies. PAST MEDICAL HISTORY: As mentioned above. PAST SURGICAL HISTORY: Right acromioclavicular repair, laparoscopic cholecystectomy, tonsillectomy, adenoidectomy. MEDICATIONS: Currently the patient is on Augmentin, DuoNebs, omeprazole, prednisone taper. FAMILY HISTORY: Significant for father had blood disorder, had hemochromatosis, diabetes, thyroid disorder. Mother has thyroid disorder, diabetes. Maternal grandmother has diabetes, thyroid disorder, brain tumor. Maternal grandfather has brain tumor. Paternal grandmother has diabetes and vascular disease. SOCIAL HISTORY: Single, former smoker, smoked half pack a day for 2 years. Alcohol occasional. No drug use. REVIEW OF SYMPTOMS: As per HPI. Rest of the review of systems negative. PHYSICAL EXAMINATION: GENERAL: The patient is obese, not in acute distress. VITAL SIGNS: Temperature 36.8, pulse 77, respiratory rate 18, blood pressure 120/70, oxygen 95% on room air. HEENT: No pallor, no icterus. Pupils equal, round, reactive to light. NECK: No JVD, no neck masses, no carotid bruit. CARDIOVASCULAR: S1, S2 heard, regular rate and rhythm. No murmur, no gallop. RESPIRATORY SYSTEM: Normal AP diameter. No accessory muscle use. No wheezing, no crackles. ABDOMEN: Soft, bowel sounds present, nontender. No distention. CENTRAL NERVOUS SYSTEM: Cranial nerves II-XII grossly intact, nonfocal. EXTREMITIES: No edema, no erythema. LABORATORY DATA: WBC 14.7, hemoglobin 14.9, hematocrit 43.5, platelets 187. PT 10.4, INR 1. Sodium 141, potassium 3.7, chloride 109, bicarbonate 25, BUN 23, creatinine 0.9, serum glucose 85, calcium 8.4, total bilirubin 0.4, AST 14, ALT 62, alkaline phosphatase 53, troponin I less than 0.015. Lipase 178. IMAGING DATA: Chest x-ray, slightly improved aeration with right perihilar and left basilar airspace opacities. This is resolving pneumonia. CTA of the chest shows segmental and subsegmental pulmonary emboli within the branches of the right upper, right middle, and right lower lobe pulmonary arteries, a subpleural mid shift focus of consolidation in the right middle lobe is consistent with a small pulmonary infarct. There are trace pleural effusions with dependent consolidation. This likely represents atelectasis, infection versus pulmonary infarct is not excluded and clinical correlation will be required. ASSESSMENT AND PLAN: This is a 32-year-old male who presents with right-sided chest pain and found to have right-sided pulmonary emboli. 1. Pulmonary emboli, segmental and subsegmental in the right upper, middle, and lower lobe pulmonary arteries, small pulmonary infarct in the right middle lobe. Starting on IV heparin. Hypercoagulable workup ordered in the ER. Needs to follow up with the PCP and duration of anticoagulation as per PCP and hematology/oncology and based on the hypercoagulable workup. Father had a history of blood clots a couple of years ago. It is an unprovoked event, may need long-term anticoagulation to decide about Coumadin versus newer agents. Pain control. Monitor in the med/surg tele. 2. Recent pneumonia, still taking Augmentin, to complete the course and complete the prednisone taper. 3. Obesity, needs counseling. 4. Deep venous thrombosis prophylaxis, IV heparin. DISPOSITION: Closely monitor in the med/surg tele. Level 1 full code. Social service to help with discharge planning. HEATH
--- NOTE | 2018-12-18 23:50 | Emergency Department Note ---
Entered by Nando Moore acting as a scribe for ED Provider Note CHIEF COMPLAINT: Chest pain HISTORY OF PRESENT ILLNESS: The patient is a 32 year old male who presents to the Emergency Room with complaints of constant right sided chest pain over the past two day. The patient rates the pain as an 8/10 and notes it is worse with breathing. The patient states he also has some shortness of breath with the chest pain. The patient reports that he was recently hospitalized for pneumonia. He notes he was feeling better while in the hospital but upon discharge he his condition started to worsen. The patient states that he saw Dr. Menjivar last week and was put on Augmentin, Prednisone and Albuterol. While at Dr. Menjivar's office he had an X- ray done that showed the right lung is clear but the left lung looks as though it was untreated. The patient also has seen his PCP Dr. Watts who told him he needs a CT of his chest to rule out PE. The patient also mentioned that his left calf has been sore over the past couple of days. Moreover, his father noted that he has a history of DVT and a clot disorder. Pt denies LOC, headache, fevers, chills, diaphoresis, visual changes, neck pain, nausea, vomiting, abdominal pain, back pain, melena, hematochezia, urinary symptoms, numbness, weakness, lymphadenopathy, rash, or other complaints. REVIEW OF SYSTEMS: See HPI for pertinent positives and negatives. A total of ten systems were reviewed and were otherwise negative. PMHx/PSHx: Sepsis, DVT prophylaxis, GERD, PNA, Tonsillectomy, Adenoidectomy, Cholecystectomy SOCIAL HISTORY: Patient lives at home. PHYSICAL EXAM: GENERAL: Awake, alert, well-appearing, in no distress HENT: Normocephalic, atraumatic. Oropharynx unremarkable. EYES: Normal conjunctiva. Sclera non-icteric. NECK: Inspection normal. Non-tender. Supple. No nuchal rigidity. FROM. No masses. RESPIRATORY: Clear to auscultation. Diminished breath sounds in the right base. No wheezes. No rales. Normal respiratory effort. CARDIAC: Normal rate. Normal rhythm. No murmurs. No rubs. Extremities warm and well perfused. Pulses equal. No JVD. GI: Soft, non-distended. No tenderness to palpation. No rebound or guarding. No masses. RECTAL: Deferred. MUSCULOSKELETAL: Atraumatic. Chest examination reveals no tenderness. The back is symmetrical on inspection without obvious abnormality. There is no CVA tenderness to palpation. No joint edema. LOWER EXTREMITIES: Calves are equal size bilaterally. No edema. No discoloration. Tender, palpable chord in the left calf. Superficial venous thrombosis in the left calf. NEURO: Normal sensorium. No sensory or motor deficits noted. SKIN: No rash or jaundice noted. EMERGENCY DEPARTMENT COURSE: 175: Past medical records reviewed. The patient was evaluated in room B11B, and a complete history and physical examination were performed. 1835: I reevaluated the patient and he is feeling better. I also updated him on results. We discussed the treatment plan and he fully understands and is agreeable with the plan. 1845: I spoke to Alberta CAMERON under Dr. Jimmie Vyas Hospitalist about the patient's case. They will be accepting the patient for further evaluation. MEDICAL DECISION MAKING: B11 Prior records/ancillary studies reviewed. Triage Nursing notes reviewed and agree them. Additional history obtained from the family. The patient's history was concerning for recent pneumonia, chest pain. Differential diagnosis: Etiologies such as cardiac ischemia, aortic dissection, pulmonary embolism, pn eumonia, pneumothorax, musculoskeletal, infections, pericarditis, myocarditis, esophageal rupture, gastrointestinal, as well as others were entertained. Physical examination: As above. ER treatment provided: IV Zofran IV Dilaudid IV heparin drip On reassessment the patient felt better. Diagnostic interpretation by me: The electrocardiogram was negative for pathologic change. The labs revealed a slight leukocytosis on CBC. Chemistry panel unremarkable. Troponin negative. Imaging studies: Chest imaging shows right-sided consolidation. CT PE study was performed and showed multiple right-sided pulmonary emboli. The patient has a pulmonary infarct as well. Patient is a pulmonary infarct and multiple pulmonary emboli on the right side. Heparin was initiated. Consultation: A consultation was placed with the hospitalist. The case was discussed and diagnostics were reviewed. The patient was evaluated in the ER for further treatment. CRITICAL CARE: I have personally spent greater than 30 minutes of critical care time in the direct management of this patient. This includes bedside care, interpretation of diagnostic studies, and testing, discussion with consultants, patient, and family members, and other required patient management activities. This 30 minutes is in excess of all separately billable procedures. IMPRESSION: Multiple pulmonary emboli Pulmonary infarct Superficial venous thrombosis of left calf Right sided chest pain Leukocytosis PLAN: Being evaluated by hospitalist The donnell's documentation has been prepared under my direction and personally reviewed by me in its entirety. I confirm that the note above accurately reflects all work, treatment, procedures, and medical decision making performed by me. Impression & Plan Multiple pulmonary emboli, Pulmonary infarct, Right-sided chest pain, Leukoc ytosis, Superficial vein thrombosis Past Med/Surg History Medical History Smoking (Chronic) Tobacco use (Chronic) GERD (gastroesophageal reflux disease) (Chronic) Surgical History Hx of shoulder surgery (Chronic) History of tonsillectomy (Chronic) H/O adenoidectomy (Chronic) History of cholecystectomy (Chronic) Family History Other Diabetes Thyroid disorder Social History Preferred Language: Argentine Communication Ability: Effective Production Assistant Required: No Beliefs That Will Affect Care: None Current Living Situation: Family Current Living Situation Comment: with girlfriend Feels Safe at Home: Yes Smoking Status: Former smoker Tobacco Type: cigarettes ; Cigarettes Per Day: 20-40 ; Second Hand Exposure: Yes ; Hx Alcohol Use: No Hx Substance Use: No Results & Data Vital Signs Vital Signs - 24 hr 12/18/18 16:51 12/18/18 16:54 12/18/18 17:10 Temperature 36.8 C Temperature Source Oral Sepsis Recent Fever Within 48 Hours No Sepsis Action Taken by Nursing No Action Required Pulse Rate 93 H Pulse Rate [Right Finger] Pulse Rate from SpO2 Sensor Respiratory Rate 18 Respiratory Effort / Characteristics Respiratory Depth Normal Respiratory Pattern Blood Pressure 149/82 H Blood Pressure [Left Arm] Blood Pressure Mean 104 Blood Pressure Mean [Left Arm] Blood Pressure Position [Left Arm] Pulse Oximetry 96 96 98 Oxygen Delivery Method Room Air Nasal Cannula Oxymask Aerosol Mask Ambu-Bag BiPAP CPAP Free Flow/Blow- by High Flow Nasal Cannula Oxyhood Mechanical Vent Nasal CPAP Nebulizer Non-rebreather T-Piece Trach Collar Face Tent Other Room Air Room Air 12/18/18 17:50 12/18/18 18:00 12/18/18 19:24 Temperature Temperature Source Sepsis Recent Fever Within 48 Hours Sepsis Action Taken by Nursing Pulse Rate 88 78 75 Pulse Rate [Right Finger] 77 Pulse Rate from SpO2 Sensor 77 74 Respiratory Rate 16 17 16 Respiratory Effort / Characteristics Non-Labored Spontaneous Respiratory Depth Normal Respiratory Pattern Regular Blood Pressure 120/70 Blood Pressure [Left Arm] 120/70 Blood Pressure Mean 86 Blood Pressure Mean [Left Arm] 86 Blood Pressure Position [Left Arm] Lying Pulse Oximetry 94 94 Oxygen Delivery Method Room Air Home Medications Current Medication List: was personally reviewed by me Laboratory Data Attestation: I reviewed the patient's lab results. Result diagrams: 12/18/18 17:30 12/18/18 17:30 Lab Results 12/18/18 12/18/18 12/18/18 Range/Units 17:30 17:30 17:30 WBC 14.79 H (4.8-10.8) K/uL RBC 4.93 (4.7-6.1) M/uL Hgb 14.9 (14.0-18.0) g/dL Hct 43.5 (42-52) % MCV 88.2 (80-100) fL MCH 30.2 (25-34) pg MCHC 34.3 (32-36) g/dL RDW Std Deviation 45.0 (36.4-46.3) fL RDW Coeff of Giancarlo 13.9 (11.5-14.5) % Plt Count 187 (130-400) K/uL MPV 10.3 (7.4-10.4) fL Immature Gran % (Auto) 0.3 % Neut % (Auto) 62.6 % Lymph % (Auto) 26.6 % Howell % (Auto) 8.1 % Eos % (Auto) 1.9 % Baso % (Auto) 0.5 % Immature Gran # (Auto) 0.04 H (0.00-0.02) K/uL Neut # (Auto) 9.25 H (1.4-6.5) K/uL Lymph # (Auto) 3.94 H (1.2-3.4) K/uL Howell # (Auto) 1.20 H (0.11-0.59) K/uL Eos # (Auto) 0.28 (0-0.5) K/uL Baso # (Auto) 0.08 (0-0.2) K/uL PT 10.4 (9.0-12.0) Seconds INR 1.0 (0.9-1.1) Sodium 141 (136-145) mmol/L Potassium 3.7 (3.5-5.1) mmol/L Chloride 109 H (98-107) mmol/L Carbon Dioxide 25 (21-32) mmol/L Anion Gap 7.0 (3-11) BUN 23 H (7-18) mg/dl Creatinine 0.96 (0.6-1.4) mg/dl Est Cr Clr Drug Dosing 155.7 ml/min Est GFR ( Amer) 119.9 Est GFR (Non-Af Amer) 103.4 BUN/Creatinine Ratio 24.5 H (10-20) Glucose 85 (70-99) mg/dl Calcium 8.4 L (8.5-10.1) mg/dl Total Bilirubin 0.4 (0.2-1) mg/dl AST 14 L (15-37) U/L ALT 62 (12-78) U/L Alkaline Phosphatase 53 (45-117) U/L Troponin I < 0.015 (0-0.045) ng/ml Total Protein 6.7 (6.4-8.2) gm/dl Albumin 3.3 L (3.4-5.0) gm/dl Globulin 3.4 (2.5-4.0) gm/dl Albumin/Globulin Ratio 1.0 (0.9-2) Lipase 178 (73-393) U/L Administered Medications Heparin Sodium/Dextrose (Heparin Sodium/Dextrose) 25,000 units in 500 mls @ 36 mls/hr IV .[id number] [facility]; Protocol Stop: 01/17/19 19:44 Last Admin: 12/18/18 23:48 Dose: 1,800 units/hr, 36 mls/hr Documented by: [id number] Cosigned by: [id number] Admin: 12/18/18 21:32 Dose: Not Given Documented by: [id number] Discontinued Medications Heparin Sodium (Porcine) (Heparin Sodium (Porcine)) Confirm Administered Dose 5,000 units .ROUTE .[facility]-MED ONE Stop: 12/18/18 19:21 Last Admin: 12/18/18 19:49 Dose: Not Given Documented by: [id number] Heparin Sodium (Porcine) (Heparin Iv Bolus) Confirm Administered Dose 10,000 units .ROUTE .[facility]-MED ONE Stop: 12/18/18 19:50 Last Admin: 12/18/18 19:51 Dose: 5,000 units Documented by: [id number] Cosigned by: [id number] Heparin Sodium/Dextrose () 1 ea IV NOW STA; Protocol Stop: 12/18/18 18:42 Last Admin: 12/18/18 19:52 Dose: 1 ea Documented by: [id number] Hydromorphone HCl (Dilaudid) 0.5 mg IV Q15M PRN PRN Reason: Pain Stop: 01/01/19 18:01 Last Admin: 12/18/18 21:34 Dose: 0.5 mg Documented by: [id number] Admin: 12/18/18 18:06 Dose: 0.5 mg Documented by: [id number] Heparin Sodium/Dextrose (Heparin Sodium/Dextrose) 25,000 units in 500 mls @ 0.02 mls/hr IV .Q24H [facility]; Protocol Stop: 01/17/19 18:44 Last Admin: 12/18/18 19:47 Dose: 1,800 units/hr, 36 mls/hr Documented by: [id number] Cosigned by: [id number] Ioversol (Optiray 320 125ml) 80 ml IV ONCE PRN PRN Reason: Interaction Checking Stop: 12/22/18 18:14 Last Admin: 12/18/18 18:15 Dose: 80 ml Documented by: [id number] Ondansetron HCl (Zofran) 4 mg IV NOW STA Stop: 12/18/18 18:03 Last Admin: 12/18/18 18:06 Dose: 4 mg Documented by: [id number] Imaging Data Radiologist's Impression: Radiology results as stated below per my review and the radiologist's interpretation: XR chest 1V portable HISTORY: Atypical Chest Pain COMPARISON: Chest 12/12/2018. FINDINGS: Improvement in the right perihilar and left base airspace opacities. This likely represents a resolving pneumonia. No pneumothorax. No pleural effusions. A few linear densities at the left lower lobe favor subsegmental atelectasis. The heart is normal in size. There are low lung volumes. IMPRESSION: Slight improved aeration within the right perihilar and left base airspace opacities. This favors a resolving pneumonia. One-month chest x-ray follow-up is recommended to ensure complete resolution. Electronically signed by: Shine Belle M.D. 12/18/2018 5:[address] ANGIOGRAM OF THE CHEST CLINICAL HISTORY: Atypical chest pain. COMPARISON STUDY: Chest CT scans dated 12/04/2018 and 10/25/2011. Chest x-ray dated 12/18/2018. TECHNIQUE: Following the IV administration of 80 cc of Optiray 320, CT angiogram of the chest was performed from the upper abdomen to the thoracic inlet utilizing the pulmonary embolus protocol. Images are reviewed in the axial, sagittal, and coronal planes. 3-D MIPS images are created and assessed. IV contrast was administered without complication. A dose lowering technique was utilized adhering to the principles of ALARA. CT DOSE: 842.71 mGy.cm FINDINGS: Thyroid: Imaged portions of the thyroid gland are normal in size and attenuation. Thoracic aorta: The thoracic aorta is normal in caliber and demonstrates standard 3-vessel arch anatomy. No dissection is seen. Pulmonary vasculature: The pulmonary trunk is normal in caliber. There are several segmental and subsegmental filling defects identified within branches of the right upper, right middle, and right lower lobe pulmonary arteries. These are consistent with pulmonary emboli. The main and lobar branches are patent. No left-sided pulmonary emboli are clearly identified. Heart: The heart is normal in size and without pericardial effusion. Lungs and pleural spaces: There are trace pleural effusions with dependent consolidation. A small subpleural wedge-shaped foci of consolidation in the right middle lobe seen image #58 is consistent with a tiny pulmonary infarct. The trachea and central airways are clear. A 4 mm right middle lobe pulmonary nodule on image 125 is unchanged and of doubtful significance. Mediastinum: There are scattered subcentimeter mediastinal lymph nodes. These are not pathologically enlarged by size criteria. [place]: Clear. Axillae: There is no axillary lymphadenopathy. Upper abdomen: Cholecystectomy clips are noted. There is a tiny hiatal hernia. Partially imaged upper abdominal viscera is otherwise grossly normal. Skeletal structures: No lytic or blastic bony lesions are seen. IMPRESSION: 1. There are segmental and subsegmental pulmonary emboli within branches of the right upper, right middle, and right lower lobe pulmonary arteries. 2. A subpleural wedge shaped focus of consolidation in the right middle lobe is consistent with a small pulmonary infarct. 3. There are trace pleural effusions with dependent consolidation. This likely represents atelectasis. Infection versus pulmonary infarct is not excluded and clinical correlation will be required. Electronically signed by: Osito Bennett M.D. 12/18/2018 6:31 PM ULTRASOUND LEFT LOWER EXTREMITY VENOUS CLINICAL HISTORY: Left leg pain. Pulmonary embolus. COMPARISON STUDY: Chest CT dated 12/18/2018. TECHNIQUE: Real-time, grayscale, and color Doppler sonography of the deep veins of the left lower extremity was performed from the inguinal crease to the calf. Compression and augmentation were utilized. FINDINGS: There is no sonographic evidence of deep venous thrombosis identified in the left lower extremity. The common femoral, superficial femoral, and popliteal veins are patent and normally compressible. The greater saphenous vein and the profunda femoris vein at the junction with the common femoral vein are clear. The visualized calf veins are patent. Occlusive superficial venous thrombus is identified within the venous varicosities in the left calf. This extends approximately 6 cm in length. IMPRESSION: 1. There is no sonographic evidence of deep venous thrombosis identified in the left lower extremity. 2. There is occlusive superficial venous thrombus identified within the venous varicosities in the left calf. Electronically signed by: Osito Bennett M.D. 12/18/2018 7:15 PM ECG Data Attestation: I personally reviewed and interpreted this ECG as follows: Indication: chest pain Rate (beats per minute): 82 Rhythm: normal sinus Findings: no PAC, no PVC, no ST depression, no ST elevation and no ectopy Blood Pressure Blood Pressure Findings: Elevated blood pressure Blood Pressure Disposition: Referred to patients primary care provider Discharge Plan Visit Data *Final* Discharge Date/Time: 12/18/18 22:15 Chief Complaint: Chest Pain Stated Complaint: CHEST PAIN, SOB ED Provider: Dom Reddy Discharge Problem: Multiple pulmonary emboli, Pulmonary infarct, Right-sided chest pain, Leuko cytosis, Superficial vein thrombosis Patient Disposition: Admitted As Inpatient Discharge Instructions Interventions: ED Discharge Assessment Last Done: 12/18/18 22:15 Discharge Problem: Leukocytosis Qualifiers: Leukocytosis type: unspecified Qualified Code(s): D72.829 - Elevated white blood cell count, unspecified The scribe's documentation has been prepared under my direction and personally reviewed by me in its entirety. I confirm that the note above accurately reflects all work, treatment, procedures, and medical decision making performed by me.
[2018-12-18] MEDS: AMOXICILLIN/CLAVULANATE 875 MG TAB PO SCH (23:58)
[2018-12-18] MEDS: predniSONE 10 MG TABLET PO SCH (23:59)
[2018-12-19] MEDS: OXYCODONE/ACETAMINOPHEN 5mg/325mg TAB PO PRN ×3 (00:07→09:58)
[2018-12-19 02:08] LABS: Partial Thromboplastin Ratio 1.8; Partial Thromboplastin Time 49.5 Seconds (21.0-31.0)
[2018-12-19] MEDS: HYDROmorphone INJ 0.5 MG/0.5 ML SYR IV PRN ×3 (02:52→13:11)
[2018-12-19 05:58] LABS: Basophils # (auto) 0.05 K/uL (0-0.2); Basophils % (auto) 0.3 %; Eosinophils # (auto) 0.17 K/uL (0-0.5); Eosinophils % (auto) 1.2 %; Hematocrit (blood only) 43.2 % (42-52); Hemoglobin 14.9 g/dL (14.0-18.0); Immature Granulocytes # (auto) 0.05 K/uL (0.00-0.02); Immature Granulocytes % (auto) 0.3 %; Lymphocytes # (auto) 2.31 K/uL (1.2-3.4); Lymphocytes % (auto) 15.9 %; Mean Corpuscular Hgb Conc 34.5 g/dL (32-36); Mean Corpuscular Volume 87.8 fL (80-100); Mean Platelet Volume 9.6 fL (7.4-10.4); Monocytes # (auto) 0.79 K/uL (0.11-0.59); Monocytes % (auto) 5.5 %; Neutrophils # (auto) 11.12 K/uL (1.4-6.5); Neutrophils % (auto) 76.8 %; Platelet Count 185 K/uL (130-400); RDW Coefficient of Variation 13.8 % (11.5-14.5); RDW Standard Deviation 44.4 fL (36.4-46.3); Red Blood Count 4.92 M/uL (4.7-6.1); White Blood Count 14.49 K/uL (4.8-10.8)
[2018-12-19 06:22] LABS: Partial Thromboplastin Ratio 2.1
[2018-12-19 06:33] LABS: Partial Thromboplastin Time 56.9 Seconds (21.0-31.0)
[2018-12-19 06:34] LABS: Calcium 8.3 mg/dl (8.5-10.1); Creatinine Clr Calc Pharmacy 187.4 ml/min; Est GFR (Non-African American) 117.4; Potassium 4.5 mmol/L (3.5-5.1)
[2018-12-19] MEDS: ALBUT/IPRATROP 3MG/0.5MG NEB 3 ML VIAL INH SCH ×4 (07:09→19:01)
[2018-12-19] MEDS: AMOXICILLIN/CLAVULANATE 875 MG TAB PO SCH ×2 (08:50→20:57)
[2018-12-19] MEDS: predniSONE 10 MG TABLET PO SCH ×2 (08:50→21:06)
[2018-12-19] MEDS: Heparin Adult STANDARD Wt-Based Dextrose 5% 25,000 units/500 mL IV SCH ×2 (09:39→23:59)
--- NOTE | 2018-12-19 11:19 | Pulmonary Consultation ---
Date of Consultation December 19, 2018 Assessment & Plan (1) Multiple pulmonary emboli: The patient has right-sided pulmonary emboli with infarction. This may well be accounting for his pain. He has been started on IV heparin. Relatively soon this can be changed over to oral anticoagulation. Would suggest either Eliquis or Xarelto if this can be arranged. The patient states he currently is without insurance but has applied for medical assistance. This may play a role in whether or not the above medications can be covered. The appropriate lab tests for hypercoagulation have been obtained. These reportedly were drawn prior to starting heparin as per the patient. As noted previously his father has a history of blood clotting as well as his paternal grandmother. He states his father is known to have some genetic abnormality. I would continue with the antibiotics for now. It is difficult to determine how much of the infiltrates are related to pneumonia or if it is really all related to the pulmonary emboli. It is suggested that the patient have echocardiogram done today if it is not been done. It is suggested that a venous Doppler of the left leg be done for completeness in light of the fact no deep vein thrombosis was found in the right leg. The patient already has a follow-up set up with Dr. Menjivar for approximately 2 weeks from now. He should keep that appointment. They were arranging for him to have a CAT scan done prior to that visit but I will have that canceled through our office. (2) Pulmonary infarct: (3) Pneumonia: Laterality: right Lung location: lower lobe of lung Pneumonia type: due to unspecified organism Qualified Code(s): J18.1 - Lobar pneumonia, unspecified organism (4) Weight loss, abnormal: History of Present Illness Attending Physician: Terell Knott MD History of Present Illness The patient is being seen for a pulmonary evaluation in room 263 bed 1. He is a 32-year-old man who was recently hospitalized from 12/02/2018 until 12/06/2018. At that time he had significant consolidations of the right lower lobe and left lower lobe. He presented at that time with fevers higher than 39 degrees. He had Reiger's and chills. He had right upper quadrant pain. There was a small amount of blood-streaked sputum. The patient also had a history of losing 30 pounds in the prior 1 to 2 months. He was seen during that hospital stay by Dr. Menjivar. Bronchoscopy was done 12/05/2018. A small amount of hemoptysis was noted. The right lung showed global inflammatory mucosal changes especially in the right lower lobe. No endobronchial lesions were seen. Bronchial washings and lavage showed cultures to all be negative. Cytology was negative. He was discharged from the hospital with levofloxacin and prednisone. The patient followed up with Dr. Menjivar on 12/12/2018. A chest x-ray on that date suggested persistent right lower lobe consolidation. Dr. Menjivar started the patient on Augmentin and prednisone. In spite of this the patient persisted with pain in the right upper quadrant and right lateral chest as well as shortness of breath. One day prior to this admission he saw Dr. Woodward his family physician. According to the patient they had ordered some blood work which I suspect included a d-dimer. They tried to contact the patient but had a difficult time reaching him because he states he was having phone problems. He was advised to go to the ER which she did yesterday. As part of the evaluation a CT angio of the chest was done. This showed evidence of segmental and subsegmental pulmonary emboli in all 3 lobes of the right lung. There was an area of probable pulmonary infarct in the right middle lobe. This was subpleural and wedge-shaped. 4 mm nodule in the right middle lobe was seen which is chronic. The radiologist reported that infection versus pulmonary infarction was not excluded. The patient was started on IV heparin which he remains on. He feels about the same. He is still having the right-sided chest pain. He is still somewhat short of breath. The patient relates that his father has had blood clots in the legs. He states his dad is on chronic anticoagulation because some type of genetic problem. It appears that the patient had a series of lab tests done at the time of this admission but prior to receiving anticoagulation to search for hypercoagulable problems. Reportedly the patient's paternal grandmother also had a history of blood clots. The patient himself has had discomfort in the area of the left calf. He states that it is feels like it is burning. He had a Doppler done yesterday that showed no evidence of deep vein thrombosis but there was occlusive superficial venous thrombosis within venous varicosities in the left calf. The patient himself has no prior history of blood clotting. The patient has a history of smoking 1 to 2 packs/day for 15 years. He has not smoked since he was admitted to the hospital on December 02. Alcohol use is very minimal. The patient currently is not working. He states he was leaving one job and going to start another. 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 Allergies Allergy/AdvReac Type Severity Reaction Status Date / Time No Known Allergies Allergy Verified 12/18/18 18:10 Home Medications Home Medications Medication Instructions Recorded Confirmed Type omeprazole 20 mg PO DAILY PRN 03/16/18 12/18/18 History amoxicillin 875 mg-potassium 1 tab PO BID #20 tab 12/12/18 12/18/18 Rx clavulanate 125 mg tablet ipratropium-albuterol 0.5 mg-3 3 ml INH QID #180 ml 12/12/18 12/18/18 Rx mg(2.5 mg base)/3 mL nebulization soln prednisone 10 mg tablet 10 mg PO BID #100 tab 12/12/18 12/18/18 Rx Patient History Medical History Smoking (Chronic) Tobacco use (Chronic) GERD (gastroesophageal reflux disease) (Chronic) Surgical History Hx of shoulder surgery (Chronic) History of tonsillectomy (Chronic) H/O adenoidectomy (Chronic) History of cholecystectomy (Chronic) Family History Other Diabetes Thyroid disorder Social History Preferred Language: Hungarian Communication Ability: Effective Furniture Duster Required: No Beliefs That Will Affect Care: None Current Living Situation: Significant Other Current Living Situation Comment: with girlfriend Other Information That Helps Us Care for You: No Feels Safe at Home: Yes Safety Concerns: Feels Safe At This Time Smoking Status: Current every day smoker Tobacco Type: cigarettes ; Cigarettes Per Day: 20-40 ; Second Hand Exposure: Yes ; Hx Alcohol Use: No Hx Substance Use: No Review of Systems Review of Systems: General: The patient's energy level has been low since he has had the pneumonia. The fevers he had previously have resolved. He is not having any chills or sweats currently. As reported in the history of present illness he has had a 30 pound weight loss without trying to lose weight. Neurologic: No complaint Ophthalmic: Denies visual complaints ENT: The patient snores. He denies having been told of sleep apnea. He states he sleeps well. Denies nasal congestion. Cardiac: The only chest pain is the pleuritic type chest pain noted in the right lower anterior and lateral chest. Denies palpitations. Pulmonary: As noted above GI: The patient has had soft bowel movements since his cholecystectomy in March 2018. Denies any blood in his bowel movements. Denies abdominal pains. : The patient relates he had some hematuria in the fall 2017 but that resolved. Denies other complaints. Musculoskeletal: Only the pleuritic pain referred to elsewhere. Dermatologic: No rashes Endocrine: No lymphadenopathy Physical Exam Physical Exam: The patient is a 32-year-old male who was cooperative alert and oriented. He was in no distress. Weight is listed as 128.9 kg. Pupils were reactive to light. Nares were clear. Mouth exam shows a Mallampati grade 2 pharynx. No erythema or exudate noted. No lymph nodes palpable in the neck. Cardiac rate 54/min. Rhythm regular. Blood pressure 108/72. Auscultation of the lung nance revealed them to be clear. Breath sounds were decreased posteriorly inferiorly. Respiratory rate 18. Saturation on room air 94%. The chest was of normal expansion and development. He did not seem to have pain taking deep breaths. Abdomen is obese. There are small scars noted from prior surgeries. Bowel s ounds were normal. There was no tenderness to palpation, masses, or organomegaly. Extremities showed no cyanosis clubbing or edema. In the right calf area is a firm hard superficial vein which is tender to palpate. Results & Data Vital Signs (Past 12 Hours) Vital Signs Temp Pulse Pulse Resp BP Pulse Ox 12/19/18 08:13 36.6 C 54 L 18 108/72 94 12/19/18 07:45 67 12/19/18 07:09 63 20 92 12/19/18 03:16 36.7 C 70 18 109/70 96 12/19/18 00:00 76 12/18/18 23:43 36.8 C 74 18 113/69 93 Laboratory Results White blood cell count is 14.49. Hemoglobin 14.9. Platelets are 185,000 it should be noted that at the time of his last hospital stay a platelet count on 12/04/2018 was 101. Sodium is 139, potassium 4.5, chloride 106, bicarb 26. BUN is 22 with a creatinine of 0.8. Blood sugar 109. Calcium 8.3. Liver functions were normal. PTT this morning is 56.9. He is on heparin drip. Urinalysis is unremarkable. Diagnostic Findings EKG showed a sinus rhythm with a rate of 82. EKG was within the limits of normal. PG Care Time/CCT Total # of Minutes Spent Total Time Spent with Patient: Total time spent is greater than 50% in coordination of care (as documented) at patient's floor/unit and/or counseling patient:
[2018-12-19] MEDS ORDERED: OXYCODONE/ACETAMINOPHEN 10-325 TAB ONE (16:56)
--- NOTE | 2018-12-19 18:49 | Hospitalist Progress Note ---
Date of Service December 19, 2018 Assessment & Plan (1) Acute pulmonary embolism: ASSESSMENT AND PLAN: This is a 32-year-old male who presents with right-sided chest pain and found to have right-sided pulmonary emboli. 1. Pulmonary emboli, segmental and subsegmental in the right upper, middle, and lower lobe pulmonary arteries, small pulmonary infarct in the right middle lobe. Risk factors: Recent hospitalization, pneumonia Hypercoagulable work-up pending Echo ordered Doppler ultrasound right lower leg ordered Continue IV heparin Case management working on determining whether patient will be comfort for novel oral anticoagulants PRN analgesics 2. Recent pneumonia, still taking Augmentin, to complete the course and complete the prednisone taper. 3. Obesity, needs counseling. 4. Deep venous thrombosis prophylaxis, IV heparin. Disposition pending Subjective Follow-up for acute pulmonary embolism Resting in bed, comfortable, not in distress Still has some dyspnea, sharp pain on the right side of the chest Denies cough, fevers chills No other symptoms Review of Systems Review of Systems: All systems reviewed & are unremarkable except as noted in HPI & below Physical Exam Physical Exam: General- oriented x 3, not in distress, speaks in sentences with no effort or accessory muscle use Head- atraumatic Eyes- PERRL, EOMI, anicteric ENT- oropharynx clear Neck- supple, no JVD, no adenopathy, no thyromegaly; carotids +2/2, no bruits appreciated Lungs- clear to auscultation bilaterally, no rales/wheezes Heart- normal rate, regular rhythm; no murmur, no gallop, no rub appreciated Abdomen- normal bowel sounds, nondistended, soft, nontender, no masses or hepatosplenomegaly Extremities- no pretibial edema, mild left calf tenderness; peripheral pulses intact Neuro- alert, oriented x 3; CN 2-12 grossly intact; motor 5/5 bilaterally;sensation 100% on all extremities; no other gross focal neurologic deficits Skin- warm & dry Results & Data Vital Signs (Past 12 Hours) Vital Signs Temp Pulse Pulse Resp BP Pulse Ox 12/19/18 16:22 36.3 C L 76 18 106/68 92 12/19/18 16:00 63 12/19/18 15:38 70 18 94 12/19/18 11:35 36.5 C 55 L 19 117/68 94 12/19/18 11:16 66 20 08/14/19 08:13 36.6 C 54 L 18 108/72 94 12/19/18 07:45 67 12/19/18 07:09 63 20 92 Laboratory Results Laboratory Results - last 24 hr 12/18/18 12/18/18 12/18/18 17:30 19:24 19:24 WBC RBC Hgb Hct MCV MCH MCHC RDW Std Deviation RDW Coeff of Giancarlo Plt Count MPV Immature Gran % (Auto) Neut % (Auto) Lymph % (Auto) Carbon % (Auto) Eos % (Auto) Baso % (Auto) Immature Gran # (Auto) Neut # (Auto) Lymph # (Auto) Carbon # (Auto) Eos # (Auto) Baso # (Auto) PT 10.4 INR 1.0 APTT PTT Ratio Hexagonal Phase Confirm Pending Protein C Activity Pending Protein S Activity Pending Antithrombin III Activ Pending Factor V Leiden Mutat Pending Factor V Leiden Interp Pending Sodium Potassium Chloride Carbon Dioxide Anion Gap BUN Creatinine Est Cr Clr Drug Dosing Est GFR ( Amer) Est GFR (Non-Af Amer) BUN/Creatinine Ratio Glucose Calcium Magnesium Homocysteine Pending Beta-2-GPI IgG Ab Pending Beta-2-GPI IgA Ab Pending Beta-2-GPI IgM Ab Pending Anti-Cardiolipin IgG Ab Pending Anti-Cardiolipin IgA Ab Pending Anti-Cardiolipin IgM Ab Pending Prothrombin Gene Mutate Pending Prothromb Gene Comment Pending 12/19/18 12/19/18 12/19/18 01:36 05:49 05:49 WBC 14.49 H RBC 4.92 Hgb 14.9 Hct 43.2 MCV 87.8 MCH 30.3 MCHC 34.5 RDW Std Deviation 44.4 RDW Coeff of Giancarlo 13.8 Plt Count 185 MPV 9.6 Immature Gran % (Auto) 0.3 Neut % (Auto) 76.8 Lymph % (Auto) 15.9 Carbon % (Auto) 5.5 Eos % (Auto) 1.2 Baso % (Auto) 0.3 Immature Gran # (Auto) 0.05 H Neut # (Auto) 11.12 H Lymph # (Auto) 2.31 Carbon # (Auto) 0.79 H Eos # (Auto) 0.17 Baso # (Auto) 0.05 PT INR APTT 49.5 H* PTT Ratio 1.8 Hexagonal Phase Confirm Protein C Activity Protein S Activity Antithrombin III Activ Factor V Leiden Mutat Pending Factor V Leiden Interp Pending Sodium Potassium Chloride Carbon Dioxide Anion Gap BUN Creatinine Est Cr Clr Drug Dosing Est GFR ( Amer) Est GFR (Non-Af Amer) BUN/Creatinine Ratio Glucose Calcium Magnesium Homocysteine Beta-2-GPI IgG Ab Beta-2-GPI IgA Ab Beta-2-GPI IgM Ab Anti-Cardiolipin IgG Ab Anti-Cardiolipin IgA Ab Anti-Cardiolipin IgM Ab Prothrombin Gene Mutate Pending Prothromb Gene Comment Pending 12/19/18 12/19/18 05:49 05:49 WBC RBC Hgb Hct MCV MCH MCHC RDW Std Deviation RDW Coeff of Giancarlo Plt Count MPV Immature Gran % (Auto) Neut % (Auto) Lymph % (Auto) Carbon % (Auto) Eos % (Auto) Baso % (Auto) Immature Gran # (Auto) Neut # (Auto) Lymph # (Auto) Carbon # (Auto) Eos # (Auto) Baso # (Auto) PT INR APTT 56.9 H* PTT Ratio 2.1 Hexagonal Phase Confirm Protein C Activity Protein S Activity Antithrombin III Activ Factor V Leiden Mutat Factor V Leiden Interp Sodium 139 Potassium 4.5 D Chloride 106 Carbon Dioxide 26 Anion Gap 7.0 BUN 22 H Creatinine 0.80 Est Cr Clr Drug Dosing 187.4 Est GFR ( Amer) 136.0 Est GFR (Non-Af Amer) 117.4 BUN/Creatinine Ratio 28.0 H Glucose 109 H Calcium 8.3 L Magnesium 2.0 Homocysteine Beta-2-GPI IgG Ab Beta-2-GPI IgA Ab Beta-2-GPI IgM Ab Anti-Cardiolipin IgG Ab Anti-Cardiolipin IgA Ab Anti-Cardiolipin IgM Ab Prothrombin Gene Mutate Prothromb Gene Comment
--- NOTE | 2018-12-19 20:07 | Ultrasound Report ---
ULTRASOUND RIGHT LOWER EXTREMITY VENOUS CLINICAL HISTORY: Pulmonary embolus. COMPARISON STUDY: No priors. TECHNIQUE: Real-time, grayscale, and color Doppler sonography of the deep veins of the right lower ex tremity was performed from the inguinal crease to the calf. Compression and augmentation were utilize d. FINDINGS: There is no sonographic evidence of deep venous thrombosis identified in the right lower ex tremity. The common femoral, superficial femoral, and popliteal veins are patent and normally sterling sible. The greater saphenous vein and the profunda femoris vein at the junction with the common femor al vein are clear. The visualized calf veins are patent. IMPRESSION: There is no sonographic evidence of deep venous thrombosis identified in the right lower extremity. Electronically signed by: Osito Bennett M.D. 12/19/2018 8:06 PM
[2018-12-19] MEDS: OXYCODONE/ACETAMINOPHEN 10-325 TAB PO PRN (20:56)
[2018-12-20] MEDS: OXYCODONE/ACETAMINOPHEN 10-325 TAB PO PRN ×2 (01:02→06:12)
[2018-12-20] MEDS ORDERED: PERFLUTREN LIPID MICROSPHERE (DEFINITY) IV ONE (07:03)
[2018-12-20] MEDS: ALBUT/IPRATROP 3MG/0.5MG NEB 3 ML VIAL INH SCH ×4 (07:17→21:06)
[2018-12-20 08:00] LABS: Partial Thromboplastin Time 55.5 Seconds (21.0-31.0)
--- NOTE | 2018-12-20 08:45 | Pulmonology Progress Note ---
Date of Service December 20, 2018 Assessment & Plan (1) Multiple pulmonary emboli: The patient has right-sided pulmonary emboli with infarction. This may well be accounting for his pain. He has been started on IV heparin. Relatively soon this can be changed over to oral anticoagulation. Would suggest either Eliquis or Xarelto if this can be arranged. The patient states he currently is without insurance but has applied for medical assistance. This may play a role in whether or not the above medications can be covered. The appropriate lab tests for hypercoagulation have been obtained. These reportedly were drawn prior to starting heparin as per the patient. As noted previously his father has a history of blood clotting as well as his paternal grandmother. He states his father is known to have some genetic abnormality. I would continue with the antibiotics for now. It is difficult to determine how much of the infiltrates are related to pneumonia or if it is really all related to the pulmonary emboli. Overall patient is doing well The patient already has a follow-up set up with Dr. Menjivar for approximately 2 weeks from now. He should keep that appointment. He was scheduled for a CAT scan to be done as an outpatient on December 25 and I arranged for our office to benny mendoza. (2) Pulmonary infarct: (3) Pneumonia: Laterality: right Lung location: lower lobe of lung Pneumonia type: due to unspecified organism Qualified Code(s): J18.1 - Lobar pneumonia, unspecified organism (4) Weight loss, abnormal: Subjective The patient is feeling much improved. The pleuritic chest pain has diminished considerably. He is less short of breath. There has been no hemoptysis and his cough is minimal. He has been ambulating to the bathroom without difficulty. His appetite has improved. Physical Exam Physical Exam: The patient is a 32-year-old male who was cooperative alert and oriented. He was in no distress at rest. Temperature is 36.6. He has had no fevers. Pupils were reactive to light. Nasal passages clear. Pharynx is Mallampati grade 2. No lymph nodes palpable. Cardiac rate is 61/min. Rhythm is regular. Blood pressure 112/73. Auscultation of the lung nance revealed them to be clear. He was able to take deep breaths without discomfort. Respiratory rate 18 breaths/min and not labored. Oxygen saturation on room air 92%. Extremities showed no cyanosis clubbing or edema. Left calf has varicose vein posteriorly. Results & Data Vital Signs (Past 12 Hours) Vital Signs Temp Pulse Pulse Resp BP Pulse Ox 12/20/18 07:21 36.6 C 61 18 112/73 92 12/20/18 07:17 68 18 94 12/20/18 03:18 36.6 C 74 20 115/68 94 12/20/18 00:00 68 12/19/18 23:59 36.6 C 74 18 107/66 92 Laboratory Results PTT this morning is 55.5 on the heparin drip. Diagnostic Findings Venous Doppler of the right lower extremity showed no evidence of DVT. The patient states he had an echocardiogram done this morning. Results are pending. PG Care Time/CCT Total # of Minutes Spent Total Time Spent with Patient: Total time spent is greater than 50% in coor dination of care (as documented) at patient's floor/unit and/or counseling patient:
[2018-12-20] MEDS: predniSONE 10 MG TABLET PO SCH ×2 (09:07→20:41)
[2018-12-20] MEDS: AMOXICILLIN/CLAVULANATE 875 MG TAB PO SCH ×2 (09:07→20:41)
[2018-12-20] MEDS: HYDROCODONE/ACETAMINOPHEN 10/325 TAB PO PRN ×2 (11:04→18:41)
--- NOTE | 2018-12-20 17:09 | Hospitalist Progress Note ---
Date of Service December 20, 2018 Assessment & Plan (1) Acute pulmonary embolism: ASSESSMENT AND PLAN: This is a 32-year-old male who presents with right-sided chest pain and found to have right-sided pulmonary emboli. 1. Pulmonary emboli, segmental and subsegmental in the right upper, middle, and lower lobe pulmonary arteries, small pulmonary infarct in the right middle lobe. Risk factors: Recent hospitalization, pneumonia Hypercoagulable work-up pending Echo: EF 55-60%, RV function normal Doppler ultrasound right lower leg: negative Continue IV heparin Case management working on determining whether patient will be covered for NOACs PRN analgesics Pulmonary SVC consulted, appreciate the recommendations 2. Recent pneumonia, still taking Augmentin, to complete the course and complete the prednisone taper. 3. Obesity, needs counseling. 4. Deep venous thrombosis prophylaxis, IV heparin. Disposition pending plan of care discussed with patient and his parents at length , in detail all questions answered they are comfortable, understanding, agreeable with the plan of care Subjective ff up for acute PE seen resting in bed, comfortable parents visiting at bedside states he feels improved today less chest pain, less dyspnea cough also improving no phlegm no fever/chills denies other symptoms Review of Systems Review of Systems: All systems reviewed & are unremarkable except as noted in HPI & below Physical Exam Physical Exam: General- oriented x 3, not in distress, speaks in sentences with no effort or accessory muscle use Eyes- anicteric Neck- no JVD Lungs- clear breath sounds bilaterally Heart- normal rate, regular rhythm; no murmurs Abdomen- normal bowel sounds, nondistended, soft, nontender Extremities-left lower ext: mild edema, no warmth/tenderness/erythema Neuro- alert, oriented x 3; no gross focal neurologic deficits Skin- warm & dry Results & Data Vital Signs (Past 12 Hours) Vital Signs Temp Pulse Resp BP Pulse Ox 12/20/18 15:25 88 14 95 12/20/18 11:34 36.5 C 73 20 119/69 92 12/20/18 11:17 77 20 94 12/20/18 07:21 36.6 C 61 18 112/73 92 12/20/18 07:17 68 18 94 Laboratory Results Laboratory Results - last 24 hr 12/20/18 07:05 APTT 55.5 H* PTT Ratio 2.0
[2018-12-20] MEDS: Heparin Adult STANDARD Wt-Based Dextrose 5% 25,000 units/500 mL IV SCH (23:11)
[2018-12-21] MEDS ORDERED: NURSING DECISION MEDICATION ONE (00:40)
[2018-12-21] MEDS: HYDROCODONE/ACETAMINOPHEN 10/325 TAB PO PRN (00:44)
[2018-12-21] MEDS ORDERED: SODIUM CHLORIDE 0.65% NA SOLN 45 ML (OCEAN) PRN (01:30)
[2018-12-21] MEDS: Heparin Adult STANDARD Wt-Based Dextrose 5% 25,000 units/500 mL IV SCH ×2 (03:49→18:22)
[2018-12-21 07:40] LABS: Partial Thromboplastin Time 54.3 Seconds (21.0-31.0)
[2018-12-21] MEDS: AMOXICILLIN/CLAVULANATE 875 MG TAB PO SCH ×2 (08:44→21:18)
[2018-12-21] MEDS: predniSONE 10 MG TABLET PO SCH ×2 (08:44→21:18)
--- NOTE | 2018-12-21 10:10 | Hospitalist Progress Note ---
Date of Service December 21, 2018 Assessment & Plan (1) Acute pulmonary embolism: ASSESSMENT AND PLAN: This is a 32-year-old male who presents with right-sided chest pain and found to have right-sided pulmonary emboli. 1. Pulmonary emboli, segmental and subsegmental in the right upper, middle, and lower lobe pulmonary arteries, small pulmonary infarct in the right middle lobe. Risk factors: Recent hospitalization, pneumonia Hypercoagulable work-up pending Echo: EF 55-60%, RV function normal Doppler ultrasound right lower leg: negative Pulmonary SVC consulted, appreciate the recommendations in light of patient's wieght 127kg, NOACs not recommended will start coumadin with lovenox bridge tonight INR daily discussed at length with patient, he is comfortable and agreeable with the plan 2. Recent pneumonia, still taking Augmentin, to complete the course and complete the prednisone taper. 3. Obesity, needs counseling. 4. Deep venous thrombosis prophylaxis, Lovenox + coumadin Disposition anticipate discharge to home tomorrow Subjective ff up for acute PE resting in bed, parents at bedside states he feels improved again today states chest pain is improved breathing also improving no signs of bleeding no other symptoms Review of Systems Review of Systems: All systems reviewed & are unremarkable except as noted in HPI & below Physical Exam Physical Exam: General- oriented x 3, not in distress, speaks in sentences with no effort or accessory muscle use Eyes- anicteric Neck- no JVD Lungs- clear BS BL Heart- normal rate, regular rhythm; no murmurs Abdomen- normal bowel sounds, nondistended, soft, nontender Extremities- trace edema of the left lower leg Neuro- alert, oriented x 3; no gross focal neurologic deficits Skin- warm & dry Results & Data Vital Signs (Past 12 Hours) Vital Signs Temp Pulse Pulse Pulse Resp BP Pulse Ox 12/21/18 07:04 36.6 C 72 16 130/71 94 12/21/18 03:53 36.8 C 56 L 16 101/65 92 12/21/18 02:23 87 12/20/18 22:15 36.8 C 88 20 134/75 91 Laboratory Results Laboratory Results - last 24 hr 12/18/18 12/21/18 19:24 07:10 APTT 54.3 H* PTT Ratio 2.0 Homocysteine 9.8
[2018-12-21] MEDS ORDERED: WARFARIN SOD 10 MG TAB PO ONE (16:30)
[2018-12-21] MEDS: ENOXAPARIN INJ 120 MG/0.8 ML SYR SQ SCH (17:52)
[2018-12-22] MEDS: ENOXAPARIN INJ 120 MG/0.8 ML SYR SQ SCH (05:55)
[2018-12-22 06:53] LABS: INR 1.1 (0.9-1.1); Partial Thromboplastin Ratio 1.1; Partial Thromboplastin Time 29.1 Seconds (21.0-31.0); Prothrombin Time 10.8 Seconds (9.0-12.0)
[2018-12-22] MEDS: AMOXICILLIN/CLAVULANATE 875 MG TAB PO SCH (08:46)
[2018-12-22] MEDS: predniSONE 10 MG TABLET PO SCH (08:46)
--- NOTE | 2018-12-22 11:26 | Hospitalist Progress Note ---
Date of Service December 22, 2018 Assessment & Plan (1) Acute pulmonary embolism: ASSESSMENT AND PLAN: This is a 32-year-old male who presents with right-sided chest pain and found to have right-sided pulmonary emboli. 1. Acute pulmonary emboli, segmental and subsegmental in the right upper, middle, and lower lobe pulmonary arteries, small pulmonary infarct in the right middle lobe. Risk factors: Recent hospitalization, pneumonia Hypercoagulable work-up pending Echo: EF 55-60%, RV function normal Doppler ultrasound right lower leg: negative Pulmonary SVC consulted, Dr. chen in light of patient's wieght 127kg (>120kg), NOACs not recommended Started Coumadin 10 mg with Lovenox 120 mg SC twice daily as bridging INR 1.1 today on discharge Will need to establish with coagulation clinic Discussed with pulmonary service, Dr. chen Recommend to reduce prednisone to 10 mg daily until seen by as scheduled January 02 Continue Augmentin course until seen by Dr. Menjivar discussed at length with patient in detail and at length, he is comfortable and agreeable with the plan 2. Recent pneumonia Management of Augmentin and prednisone as outlined above 3. Obesity, needs counseling. 4. Deep venous thrombosis prophylaxis, Lovenox + coumadin Disposition Discharge home today Follow-up with PCP as scheduled on Monday, December 25, 2018 Follow-up with pulmonary service Dr. Menjivar as scheduled on December 25, 2018 Patient to be contacted by the [facility] coagulation clinic for advice regarding Coumadin and Lovenox Subjective Follow-up for acute pulmonary embolism Now resting in bed, comfortable, in good spirits Much better overall Denies chest pain, shortness of breath, palpitations, dizziness, nausea vomiting Denies fevers or chills No bleeding States that he is very comfortable with the use of Lovenox injections Denies other symptoms States he is ready to be discharged today Review of Systems Review of Systems: All systems reviewed & are unremarkable except as noted in HPI & below Physical Exam Physical Exam: General- oriented x 3, not in distress, speaks in sentences with no effort or accessory muscle use Eyes- anicteric Neck- no JVD Lungs- clear breath sounds bilaterally, no wheezing, no crackles or rales Heart- normal rate, regular rhythm; no murmurs Abdomen- normal bowel sounds, nondistended, soft, nontender Extremities- no pretibial edema, no calf tenderness Neuro- alert, oriented x 3; no gross focal neurologic deficits Skin- warm & dry Results & Data Vital Signs (Past 12 Hours) Vital Signs Temp Pulse Pulse Resp BP Pulse Ox 12/22/18 07:56 36.7 C 75 18 100/66 93 12/22/18 07:21 72 12/22/18 04:00 36.6 C 57 L 18 112/64 92 12/22/18 00:57 71 Laboratory Results Laboratory Results - last 24 hr 12/22/18 06:20 PT 10.8 INR 1.1 APTT 29.1 PTT Ratio 1.1
--- NOTE | 2018-12-22 11:37 | Discharge Summary ---
Date of Service December 22, 2018 Admission HPI Per Admitting Provider CHIEF COMPLAINT: Right-sided chest pain. HISTORY OF PRESENT ILLNESS: This is a 32-year-old male with past medical history significant for eosinophilia, back pain, family history of hemochromatosis, who was recently in the hospital and discharged on 12/07/2018 for pneumonia. At that time bronchoscopy was performed and was discharged on Levaquin and prednisone and bronchoscopy was unremarkable. He says he still has pulmonary symptoms and recently seen by pulmonary as out patient and was started on Augmentin and prednisone taper, he has 5 more days of Augmentin. But he is having severe right-sided chest pain. Taking deep breath is causing more pain. Last night he only slept 3 hours. He is getting shortness of breath all the time. No cough, no fever, no chills, no nausea, no vomiting, no abdominal pain. Appetite is down. Denies any diarrhea or constipation. No blood in the stool, no black stools, no hematuria, no burning micturition. No headache, no blurred vision, no earache, no runny nose, no sore throat, no difficulty swallowing. Currently resting comfortably and hemodynamically stable. No rash seen. Imaging studies in the ER showed segmental and subsegmental pulmonary emboli within the branches of the right upper, right middle, and right lower lobe pulmonary arteries. Right middle lobe small pulmonary infarct. Currently, the patient is resting comfortably and hemodynamically stable. ALLERGIES: No known drug allergies. PAST MEDICAL HISTORY: As mentioned above. PAST SURGICAL HISTORY: Right acromioclavicular repair, laparoscopic cholecystectomy, tonsillectomy, adenoidectomy. MEDICATIONS: Currently the patient is on Augmentin, DuoNebs, omeprazole, prednisone taper. FAMILY HISTORY: Significant for father had blood disorder, had hemochromatosis, diabetes, thyroid disorder. Mother has thyroid disorder, diabetes. Maternal grandmother has diabetes, thyroid disorder, brain tumor. Maternal grandfather has brain tumor. Paternal grandmother has diabetes and vascular disease. SOCIAL HISTORY: Single, former smoker, smoked half pack a day for 2 years. Alcohol occasional. No drug use. REVIEW OF SYMPTOMS: As per HPI. Rest of the review of systems negative. Admission Exam Per Admitting Provider PHYSICAL EXAMINATION: GENERAL: The patient is obese, not in acute distress. VITAL SIGNS: Temperature 36.8, pulse 77, respiratory rate 18, blood pressure 120/70, oxygen 95% on room air. HEENT: No pallor, no icterus. Pupils equal, round, reactive to light. NECK: No JVD, no neck masses, no carotid bruit. CARDIOVASCULAR: S1, S2 heard, regular rate and rhythm. No murmur, no gallop. RESPIRATORY SYSTEM: Normal AP diameter. No accessory muscle use. No wheezing, no crackles. ABDOMEN: Soft, bowel sounds present, nontender. No distention. CENTRAL NERVOUS SYSTEM: Cranial nerves II-XII grossly intact, nonfocal. EXTREMITIES: No edema, no erythema. Principal Diagnosis ACUTE PULMONARY EMBOLI Discharge Exam General- oriented x 3, not in distress, speaks in sentences with no effort or accessory muscle use Eyes- anicteric Neck- no JVD Lungs- clear breath sounds bilaterally, no wheezing, no crackles or rales Heart- normal rate, regular rhythm; no murmurs Abdomen- normal bowel sounds, nondistended, soft, nontender Extremities- no pretibial edema, no calf tenderness Neuro- alert, oriented x 3; no gross focal neurologic deficits Skin- warm & dry Discharge Data Allergies Allergy/AdvReac Type Severity Reaction Status Date / Time No Known Allergies Allergy Verified 12/18/18 18:10 Consultations 12/18/18 18:42 ED Decision to Admit Stat 12/18/18 22:43 Consult Case Management - Discharge Planning Routine 12/19/18 08:36 Consult Pulmonology Routine Ordered Studies 12/18/18 17:55 CT angio chest PE protocol Stat CT ANGIOGRAM OF THE CHEST CLINICAL HISTORY: Atypical chest pain. COMPARISON STUDY: Chest CT scans dated 12/04/2018 and 10/25/2011. Chest x-ray dated 12/18/2018. TECHNIQUE: Following the IV administration of 80 cc of Optiray 320, CT angiogram of the chest was performed from the upper abdomen to the thoracic inlet utilizing the pulmonary embolus protocol. Images are reviewed in the axial, sagittal, and coronal planes. 3-D MIPS images are created and assessed. IV contrast was administered without complication. A dose lowering technique was utilized adhering to the principles of ALARA. CT DOSE: 842.71 mGy.cm FINDINGS: Thyroid: Imaged portions of the thyroid gland are normal in size and attenuation. Thoracic aorta: The thoracic aorta is normal in caliber and demonstrates standard 3-vessel arch anatomy. No dissection is seen. Pulmonary vasculature: The pulmonary trunk is normal in caliber. There are several segmental and subsegmental filling defects identified within branches of the right upper, right middle, and right lower lobe pulmonary arteries. These are consistent with pulmonary emboli. The main and lobar branches are patent. No left-sided pulmonary emboli are clearly identified. Heart: The heart is normal in size and without pericardial effusion. Lungs and pleural spaces: There are trace pleural effusions with dependent consolidation. A small subpleural wedge-shaped foci of consolidation in the right middle lobe seen image #58 is consistent with a tiny pulmonary infarct. The trachea and central airways are clear. A 4 mm right middle lobe pulmonary nodule on image 125 is unchanged and of doubtful significance. Mediastinum: There are scattered subcentimeter mediastinal lymph nodes. These are not pathologically enlarged by size criteria. [place]: Clear. Axillae: There is no axillary lymphadenopathy. Upper abdomen: Cholecystectomy clips are noted. There is a tiny hiatal hernia. Partially imaged upper abdominal viscera is otherwise grossly normal. Skeletal structures: No lytic or blastic bony lesions are seen. IMPRESSION: 1. There are segmental and subsegmental pulmonary emboli within branches of the right upper, right middle, and right lower lobe pulmonary arteries. 2. A subpleural wedge shaped focus of consolidation in the right middle lobe is consistent with a small pulmonary infarct. 3. There are trace pleural effusions with dependent consolidation. This likely represents atelectasis. Infection versus pulmonary infarct is not excluded and clinical correlation will be required. 12/18/18 18:01 US venous doppler LE LT Stat IMPRESSION: 1. There is no sonographic evidence of deep venous thrombosis identified in the left lower extremity. 2. There is occlusive superficial venous thrombus identified within the venous varicosities in the left calf. 12/19/18 18:47 US venous doppler LE RT Routine IMPRESSION: There is no sonographic evidence of deep venous thrombosis identified in the right lower extremity. Hospital Course (1) Acute pulmonary embolism: ASSESSMENT AND PLAN: This is a 32-year-old male who presents with right-sided chest pain and found to have right-sided pulmonary emboli. 1. Acute pulmonary emboli, segmental and subsegmental in the right upper, middle, and lower lobe pulmonary arteries, small pulmonary infarct in the right middle lobe. Risk factors: Recent hospitalization, pneumonia Hypercoagulable work-up pending Echo: EF 55-60%, RV function normal Doppler ultrasound right lower leg: negative Pulmonary SVC consulted, Dr. bonner in light of patient's wieght 127kg (>120kg), NOACs not recommended Started Coumadin 10 mg with Lovenox 120 mg SC twice daily as bridging INR 1.1 today on discharge Will need to establish with coagulation clinic Discussed with pulmonary service, Dr. bonner Recommend to reduce prednisone to 10 mg daily until seen by as scheduled January 02 Continue Augmentin course until seen by Dr. Menjivar discussed at length with patient in detail and at length, he is comfortable and agreeable with the plan 2. Recent pneumonia Management of Augmentin and prednisone as outlined above 3. Obesity, needs counseling. 4. Deep venous thrombosis prophylaxis, Lovenox + coumadin Disposition Discharge home today Follow-up with PCP as scheduled on Monday, December 25, 2018 Follow-up with pulmonary service Dr. Menjivar as scheduled on December 25, 2018 Patient to be contacted by the [facility] coagulation clinic for advice regarding Coumadin and Lovenox Total Time Total Time Spent Total Time Spent (In Minutes): 55 MINUTES Discharge Plan Discharge Items Patient Disposition: Home - Self-Care Reason For Visit: CHEST PAIN Discharge Diagnosis: Acute pulmonary embolism (blood clots in the lung) Discharge Goals: Decrease discomfort, Diagnostic testing and Therapeutic intervention Activity: As commented below Activity Comment: No heavy exertion until re-evaluated with primary care physician Lifting: Wait until after follow-up appointment Exercise/Sports: Wait until after follow-up appointment Driving/Machine Use Comment: No driving until reevaluated by primary care physician Non-emergency contact: Primary Care Provider and Facilitator Call non-emergency contact if: you have any medication questions, your symptoms worsen, your pain is not controlled, your pain is worsening and you have a fever Follow-up/Referrals: Stanley Menjivar MD [Physician] - Kenton Woodward DO [Primary Care Provider] - Diet: Heart Healthy Addtl Provider Instructions: Please review your new medication list and follow instructions carefully. Do not miss taking the Lovenox and Coumadin. Your new medications are: Lovenox injections 120mg twice a day-at 6 AM and at 6 PM Coumadin 5 mg daily at 4 PM Medication changes: Reduce prednisone to 10 mg daily Continue taking Augmentin twice a day, omeprazole once a day, nebulizer treatments as needed. Take a probiotic daily for at least 1 month. The [facility] anticoagulation clinic will be calling you on Monday for advice regarding blood work and Lovenox and Coumadin dosing. If you have signs of bleeding, call your primary care physician or return to the ER immediately. If you have any head trauma, proceed to the ER immediately for evaluation. Follow-up with Dr. Woodward scheduled this Monday December 24, 2018. Follow-up with Dr. Menjivar as scheduled. Prescriptions: New enoxaparin [Lovenox] 120 mg/0.8 mL Syringe 120 mg subcut Q12H 10 Days Qty: 16 RF: 1 warfarin [Coumadin] 5 mg tablet 5 mg PO DAILY 30 Days Qty: 30 RF: 0 Continued ipratropium-albuterol 0.5 mg-3 mg(2.5 mg base)/3 mL solution for nebulization 3 ml INH QID Qty: 180 RF: 3 amoxicillin-pot clavulanate [Augmentin] 875-125 mg tablet 1 tab PO BID Qty: 20 RF: 0 omeprazole 20 mg Tablet,Delayed Release (Dr/Ec) 20 mg PO DAILY PRN (Reason: Acid Reflux) RF: 0 Changed prednisone 10 mg tablet 10 mg PO DAILY 20 Days Qty: 20 RF: 0 Stand-Alone Forms: Call Back Authorization, [facility] Discharge Orders: Discharge Order (Routine); Ordered 12/22/18 Ordered By: Terell Knott Admission Data Admit Date/Time: 12/18/18 19:53 Attending Provider: Terell Knott Admit Provider: Dhaval Samuel Primary Care Provider: Kenton Woodward Other Providers: Dhaval Samuel ; Jennifer Dietz ; Basil Bonner Service: Telemetry Medical Other Interventions: Discharge Summary Assessment (RN) Last Done: 12/22/18 11:38 DC Date/Time DO NOT enter until pt leaves facility: 12/22/18 15:03
[2018-12-24 20:39] LABS: Anti Cardiolipin Ab IgG <14 GPL (< = 14); Anti Cardiolipin Ab IgM <12 MPL (< = 12); Anti-Cardiolipin Ab IgA <11 APL (< = 11); Anti-Thrombin III Activity 100 % activity (80-120); B2 Glycoprotein IgA <9 SAU (<=20); B2 Glycoprotein IgG <9 SGU (<=20); B2 Glycoprotein IgM <9 SMU (<=20); Lupus Anticoagulant Negative (Negative); Protein S Functional(Activity) 94 % (70-150)
== END 2018-12-22 15:03 | disposition home or self-care (01) | DRG 175 ==
LOC: ED 16:51 → 2W 19:53 → SUATTDRO 19:53 → 2W 22:15

== ENCOUNTER 2019-04-16 18:31 | Observation (INO) ==
[2019-04-16] MEDS ORDERED: SODIUM CHLORIDE 0.9% 1000ML 1,000 ML IV ONE (18:51)
--- NOTE | 2019-04-16 19:07 | XRay Report ---
XR chest 1V portable CLINICAL HISTORY: Chest Pain condition COMPARISON STUDY: 02/20/2019 FINDINGS: Mild cardiac enlargement. Parenchymal infiltrate right base. Prominent pulmonary vascular c ongestion. Chronic atelectatic changes left base. IMPRESSION: 1. Poorly defined infiltrate right base. 2. Pulmonary vascular congestion. The above report was generated using voice recognition software. It may contain grammatical, syntax or spelling errors. Electronically signed by: Ezio Gonzalez M.D. 04/16/2019 7:05 PM
[2019-04-16 19:12] LABS: Basophils # (auto) 0.08 K/uL (0-0.2); Basophils % (auto) 0.9 %; Eosinophils # (auto) 0.23 K/uL (0-0.5); Eosinophils % (auto) 2.7 %; Hematocrit (blood only) 43.6 % (42-52); Hemoglobin 14.8 g/dL (14.0-18.0); Immature Granulocytes # (auto) 0.02 K/uL (0.00-0.02); Immature Granulocytes % (auto) 0.2 %; Lymphocytes # (auto) 2.35 K/uL (1.2-3.4); Lymphocytes % (auto) 27.9 %; Mean Corpuscular Hemoglobin 30.6 pg (25-34); Mean Corpuscular Hgb Conc 33.9 g/dL (32-36); Mean Corpuscular Volume 90.1 fL (80-100); Monocytes # (auto) 1.04 K/uL (0.11-0.59); Monocytes % (auto) 12.3 %; Neutrophils # (auto) 4.71 K/uL (1.4-6.5); Platelet Count 158 K/uL (130-400); RDW Coefficient of Variation 13.3 % (11.5-14.5); RDW Standard Deviation 43.7 fL (36.4-46.3); Red Blood Count 4.84 M/uL (4.7-6.1); White Blood Count 8.43 K/uL (4.8-10.8)
[2019-04-16 19:24] LABS: INR 1.2 (0.9-1.1); Prothrombin Time 12.5 Seconds (9.0-12.0)
[2019-04-16] MEDS ORDERED: KETOROLAC TROMETHAMINE 15 MG/ML VIAL IV ONE (19:26)
[2019-04-16 19:29] LABS: Alanine Aminotransferase 27 U/L (12-78); Albumin Level 3.8 gm/dl (3.4-5.0); Aspartate Aminotransferase 13 U/L (15-37); BUN Creatinine Ratio 14.1 (10-20); Blood Urea Nitrogen 15 mg/dl (7-18); Calcium 8.8 mg/dl (8.5-10.1); Carbon Dioxide 25 mmol/L (21-32); Chloride 104 mmol/L (98-107); Creatinine Clr Calc Pharmacy 144.5 ml/min; Est GFR (African American) 103.2; Est GFR (Non-African American) 89.1; Glucose 93 mg/dl (70-99); Lipase 94 U/L (73-393); Sodium 136 mmol/L (136-145)
[2019-04-16 19:34] LABS: Albumin Globulin Ratio 1.1 (0.9-2); Alkaline Phosphatase 56 U/L (45-117); Bilirubin,Total 0.6 mg/dl (0.2-1); Globulin 3.4 gm/dl (2.5-4.0); Total Protein 7.2 gm/dl (6.4-8.2); Troponin I < 0.015 ng/ml (0-0.045)
[2019-04-16] MEDS ORDERED: OPTIRAY 320 125ml IV PRN (20:17)
--- NOTE | 2019-04-16 20:35 | CT Scan Report ---
CT angio chest PE protocol CT DOSE: 977.96 mGy.cm HISTORY: Chest pain. Dyspnea. Previous PE, INR low, chest pain TECHNIQUE: Multiaxial CT images of the chest were performed following the intravenous administration of contrast to evaluate the pulmonary arteries. Maximal intensity projection images were also obtaine d. A dose lowering technique was utilized adhering to the principles of ALARA. COMPARISON STUDY: 12/18/2018 FINDINGS: The thoracic aorta is unremarkable. There are several small third order filling defects rig ht lung base. There is no evidence for main or central pulmonary embolus. Interval development of seg mental atelectasis anterior aspect right lower lobe. Pre-existing atelectatic change posterior aspect right lower lobe has improved compared to the prior exam. Moderate interstitial prominence left and to a lesser extent right lung base. Pleural reactive change at both lung bases. IMPRESSION: 1. Study is positive for several very small emboli considered third order right lung base. 2. Mild focal consolidation anterior aspect right lower lobe versus the possibility of inflammatory p rocess. Pulmonary infarct is considered less likely given its configuration and location. 3. Scattered atelectatic changes throughout both lung bases. The above report was generated using voice recognition software. It may contain grammatical, syntax or spelling errors. Electronically signed by: Ezio Gonzalez M.D. 04/16/2019 8:34 PM
[2019-04-16] MEDS ORDERED: AZITHROMYCIN 250 MG TAB PO ONE (20:42)
[2019-04-16] MEDS ORDERED: cefTRIAXone SODIUM 1,000 MG/50 ML BAG IV STA (20:42)
[2019-04-16] MEDS ORDERED: HEPARIN SODIUM/DEXTROSE 25,000 UNITS/500 ML BAG IV SCH (20:45)
[2019-04-16] MEDS ORDERED: HEPARIN SOD (PORCINE) 1000 UNIT/ML 10 ML VIAL ONE (21:18)
[2019-04-16] MEDS ORDERED: MoRPHine SULFATE 4 MG/ML 1 ML CARP\\VIAL IV STA (21:37)
[2019-04-16] MEDS ORDERED: WARFARIN SOD 10 MG TAB PO ONE (22:04)
[2019-04-16] MEDS ORDERED: ONDANSETRON INJ 2 MG/ML 2 ML VIAL IV STA (22:21)
[2019-04-16] MEDS ORDERED: ONDANSETRON INJ 2 MG/ML 2 ML VIAL ONE (22:22)
--- NOTE | 2019-04-16 22:46 | History & Physical Report ---
Date of Service April 16, 2019 Assessment & Plan (1) Pulmonary embolism: Recurrent clot Subtherapeutic INR on Coumadin secondary to missed doses ? Compliance Low-grade fever secondary to viral infection and lung clot, patient not septic chronic back pain, at baseline ongoing tobacco abuse OBS Medical telemetry IV heparin-Coumadin bridge tx Hold off on antibiotics for now for fever Nicotine patch PRN DVT prophylaxis IV heparinCoumadin Discharge home in a.m. on Lovenox-Coumadin bridge therapy if patient comfortable overnight Full code History of Present Illness Chief Complaint: Right-sided chest pain Primary Care Provider: Kenton Woodward DO History obtained from patient and records. Medical history significant for PE on Coumadin, chronic back pain, chronic eosinophilia as per records, ongoing tobacco abuse. Recent confinement December 2018 for acute pulmonary emboli. Patient discharged on Coumadin course. Last week patient noted flulike illness. Poor appetite. Was not able to take Coumadin for 2 days because he was not feeling well. Yesterday patient noted achy right subcostal pain with shortness of breath. No unusual cough symptoms. No diarrhea/dysuria. Low-grade fever. Patient evaluated at the ER. IV heparin started for PE on CT. 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 Allergies Allergy/AdvReac Type Severity Reaction Status Date / Time No Known Allergies Allergy Verified 04/16/19 20:02 Home Medications Home Medications Medication Instructions Recorded Confirmed Type omeprazole 20 mg PO DAILY PRN 03/16/18 04/16/19 History compr.stocking,knee,long,large #12 ea 01/08/19 04/16/19 Rx warfarin 10 mg tablet 10 mg PO DAILY 02/20/19 04/16/19 History ipratropium-albuterol 3 ml INH QID PRN 04/16/19 04/16/19 History enoxaparin [Lovenox] 141 mg SUBCUT Q12 3 Days #6 ml 04/17/19 Rx Past Med/Surg History Medical History GERD (gastroesophageal reflux disease) (Chronic) Smoking (Chronic) Tobacco use (Chronic) Surgical History H/O adenoidectomy (Chronic) History of cholecystectomy (Chronic) History of tonsillectomy (Chronic) Hx of shoulder surgery (Chronic) Family History Other Diabetes Thyroid disorder Social History Preferred Language: Azeri Communication Ability: Effective 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 Cook 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: No Beliefs That Will Affect Care: None marital status: Single Current Living Situation: Significant Other Current Living Situation Comment: with girlfriend Feels Safe at Home: Yes Smoking Status: Current every day smoker Tobacco Type: cigarettes ; Age Started Using Tobacco: 18 ; packs per day: 1.5 ; Cigarettes Per Day: 3 ; Do You Dip or Chew Tobacco: No (former) ; Second Hand Exposure: Yes ; Tobacco Cessation Education Requested by Patient: No Hx Alcohol Use: No Hx Substance Use: No Review of Systems Review of Systems: As per HPI, all 10 systems reviewed, all other ROS negative Physical Exam Physical Exam: GENERAL: Comfortable, obese, no respiratory distress SKIN: Normal color, warm HEENT: [place] palpebral conjunctivae, no ptosis, dry buccal mucosa NECK : Supple, no tenderness CHEST : Decreased breath sounds, right subcostal tenderness HEART : RRR, no obvious murmurs ABDOMEN: Some distention, nontender EXTREMITIES : Minimal LE swelling, no LE tenderness, no other conspicuous deformities noted NEUROLOGIC : Coherent, no facial asymmetry, no other gross focality Results & Data Vital Signs (Past 12 Hours) Vital Signs Temp Pulse Resp BP Pulse Ox 04/16/19 22:01 15 04/16/19 22:00 18 137/74 04/16/19 21:12 87 14 04/16/19 21:11 96 H 22 120/75 04/16/19 21:10 81 20 04/16/19 19:50 87 20 96 04/16/19 19:40 80 18 94 04/16/19 19:31 79 18 94 04/16/19 19:30 78 19 122/72 94 04/16/19 19:20 82 18 96 04/16/19 19:17 77 17 115/77 95 04/16/19 19:10 79 21 96 04/16/19 19:00 82 16 107/68 96 04/16/19 18:54 85 15 119/71 96 04/16/19 18:50 83 14 99 04/16/19 18:40 37.9 C H 95 H 19 151/87 H 95 Laboratory Results Laboratory Results WBC 8.43 K/uL (4.8-10.8) 04/16/19 18:59 RBC 4.84 M/uL (4.7-6.1) 04/16/19 18:59 Hgb 14.8 g/dL (14.0-18.0) 04/16/19 18:59 Hct 43.6 % (42-52) 04/16/19 18:59 MCV 90.1 fL (80-100) 04/16/19 18:59 MCH 30.6 pg (25-34) 04/16/19 18:59 MCHC 33.9 g/dL (32-36) 04/16/19 18:59 RDW Std Deviation 43.7 fL (36.4-46.3) 04/16/19 18:59 RDW Coeff of Giancarlo 13.3 % (11.5-14.5) 04/16/19 18:59 Plt Count 158 K/uL (130-400) 04/16/19 18:59 MPV 10.0 fL (7.4-10.4) 04/16/19 18:59 Immature Gran % (Auto) 0.2 % 04/16/19 18:59 Neut % (Auto) 56.0 % 04/16/19 18:59 Lymph % (Auto) 27.9 % 04/16/19 18:59 Cameron % (Auto) 12.3 % 04/16/19 18:59 Eos % (Auto) 2.7 % 04/16/19 18:59 Baso % (Auto) 0.9 % 04/16/19 18:59 Immature Gran # (Auto) 0.02 K/uL (0.00-0.02) 04/16/19 18:59 Neut # (Auto) 4.71 K/uL (1.4-6.5) 04/16/19 18:59 Lymph # (Auto) 2.35 K/uL (1.2-3.4) 04/16/19 18:59 Cameron # (Auto) 1.04 K/uL (0.11-0.59) H 04/16/19 18:59 Eos # (Auto) 0.23 K/uL (0-0.5) 04/16/19 18:59 Baso # (Auto) 0.08 K/uL (0-0.2) 04/16/19 18:59 PT 12.5 Seconds (9.0-12.0) H 04/16/19 18:59 INR 1.2 (0.9-1.1) H 04/16/19 18:59 Sodium 136 mmol/L (136-145) 04/16/19 18:59 Potassium 4.0 mmol/L (3.5-5.1) 04/16/19 18:59 Chloride 104 mmol/L (98-107) 04/16/19 18:59 Carbon Dioxide 25 mmol/L (21-32) 04/16/19 18:59 Anion Gap 6.0 (3-11) 04/16/19 18:59 BUN 15 mg/dl (7-18) 04/16/19 18:59 Creatinine 1.08 mg/dl (0.6-1.4) 04/16/19 18:59 Est Cr Clr Drug Dosing 144.5 ml/min 04/16/19 18:59 Est GFR ( Amer) 103.2 04/16/19 18:59 Est GFR (Non-Af Amer) 89.1 04/16/19 18:59 BUN/Creatinine Ratio 14.1 (10-20) 04/16/19 18:59 Glucose 93 mg/dl (70-99) 04/16/19 18:59 Calcium 8.8 mg/dl (8.5-10.1) 04/16/19 18:59 Magnesium 2.0 mg/dl (1.8-2.4) 04/16/19 18:59 Total Bilirubin 0.6 mg/dl (0.2-1) 04/16/19 18:59 AST 13 U/L (15-37) L 04/16/19 18:59 ALT 27 U/L (12-78) 04/16/19 18:59 Alkaline Phosphatase 56 U/L (45-117) 04/16/19 18:59 Troponin I < 0.015 ng/ml (0-0.045) 04/16/19 18:59 Total Protein 7.2 gm/dl (6.4-8.2) 04/16/19 18:59 Albumin 3.8 gm/dl (3.4-5.0) 04/16/19 18:59 Globulin 3.4 gm/dl (2.5-4.0) 04/16/19 18:59 Albumin/Globulin Ratio 1.1 (0.9-2) 04/16/19 18:59 Lipase 94 U/L (73-393) 04/16/19 18:59 Influenza Type A Ag Neg for Influ A (Neg) 04/16/19 19:24 Influenza Type B Ag Neg for Influ B (Neg) 04/16/19 19:[address] chest: 1. Study is positive for several very small emboli considered third order right lung base. 2. Mild focal consolidation anterior aspect right lower lobe versus the possibility of inflammatory process. Pulmonary infarct is considered less likely given its configuration and location. 3. Scattered atelectatic changes throughout both lung bases. EKG as per my interpretation rate 85, NSR, normal axis, no ischemia (1) Pulmonary embolism Acute cor pulmonale presence: unspecified Chronicity: acute Pulmonary embolism type: unspecified Qualified Code(s): I26.99 - Other pulmonary embolism without acute cor pulmonale
[2019-04-16] MEDS ORDERED: CALCIUM CARBONATE 500 MG CHEWABLE TAB ONE (23:00)
--- NOTE | 2019-04-16 23:19 | Emergency Department Note ---
Entered by Allison Mesa acting as a scribe for Refugio Mccoy DO History of Present Illness General Chief complaint: Cardiac Assessment Stated complaint: SOB, BACK AND CHEST PAIN-HX PE IN RT LUNG & LT LEG Source: patient History of Present Illness Provider complaint: chest pain Onset (ago): day(s) 1 Location: chest and right Pain Consistency: + constant Exacerbated By: + movement and + other (breathing) Associated symptoms: + cough and + other (-runny nose, -sore throat, -arm pain); no shortness of breath The patient is a 33 year old male who presents to the Emergency Room with complaints of constant chest pain for the past day. He notes that the pain is located on the right side. He states that the pain worsens when breathing, twisting, and turning. He notes that he has lower back pain as well. He states that he has had a cough for the past 2 days and reports that coughing worsens his pain. The patient denies any mucus. He denies any runny nose, sore throat, shortness of breath, or arm pain. He mentions that she fell recently on his right shoulder. No other exacerbating or remitting factors. Home Medications Home Medications Medication Instructions Recorded Confirmed Type omeprazole 20 mg PO DAILY PRN 03/16/18 04/16/19 History compr.stocking,knee,long,large #12 ea 01/08/19 04/16/19 Rx warfarin 10 mg tablet 10 mg PO DAILY 02/20/19 04/16/19 History ipratropium-albuterol 3 ml INH QID PRN 04/16/19 04/16/19 History Allergies Allergy/AdvReac Type Severity Reaction Status Date / Time No Known Allergies Allergy Verified 04/16/19 20:02 Past Med/Surg History Medical History GERD (gastroesophageal reflux disease) (Chronic) Smoking (Chronic) Tobacco use (Chronic) Surgical History H/O adenoidectomy (Chronic) History of cholecystectomy (Chronic) History of tonsillectomy (Chronic) Hx of shoulder surgery (Chronic) Family History Other Diabetes Thyroid disorder Social History Preferred Language: Romanian Communication Ability: Effective Doughnut Icer Required: No Beliefs That Will Affect Care: None marital status: Single Current Living Situation: Significant Other Current Living Situation Comment: with girlfriend Feels Safe at Home: Yes Smoking Status: Former smoker Tobacco Type: cigarettes and smokeless tobacco ; Age Started Using Tobacco: 18 ; packs per day: 1.5 ; Cigarettes Per Day: 20-40 ; Second Hand Exposure: Yes ; Hx Alcohol Use: No Hx Substance Use: No Review of Systems See HPI for pertinent positives & negatives. and A total of 10 systems reviewed and were otherwise negative Physical Exam Vital Signs Vital Signs - 24 hr 04/16/19 18:40 04/16/19 18:46 04/16/19 18:50 Temperature 37.9 C H Temperature Source Oral Pulse Rate 95 H 83 Pulse Rate [Apical] Pulse Rate from SpO2 Sensor Respiratory Rate 19 14 Respiratory Effort / Characteristics Non-Labored Respiratory Depth Normal Respiratory Pattern Regular Blood Pressure 151/87 H Blood Pressure [Left Arm] Blood Pressure Mean 108 Blood Pressure Mean [Left Arm] Blood Pressure Position Sitting Pulse Oximetry 95 99 Oxygen Delivery Method Room Air Room Air Room Air Sepsis Recent Fever Within 48 Hours No Sepsis New/Unexplained Change in Mental Status No Sepsis Action Taken by Nursing No Action Required 04/16/19 18:54 04/16/19 19:00 04/16/19 19:10 Temperature Temperature Source Pulse Rate 85 82 79 Pulse Rate [Apical] Pulse Rate from SpO2 Sensor 85 78 82 Respiratory Rate 15 16 21 Respiratory Effort / Characteristics Respiratory Depth Respiratory Pattern Blood Pressure 119/71 107/68 Blood Pressure [Left Arm] Blood Pressure Mean 79 87 Blood Pressure Mean [Left Arm] Blood Pressure Position Pulse Oximetry 96 96 96 Oxygen Delivery Method Sepsis Recent Fever Within 48 Hours Sepsis New/Unexplained Change in Mental Status Sepsis Action Taken by Nursing 04/16/19 19:17 04/16/19 19:20 04/16/19 19:30 Temperature Temperature Source Pulse Rate 77 82 78 Pulse Rate [Apical] Pulse Rate from SpO2 Sensor 81 83 81 Respiratory Rate 17 18 19 Respiratory Effort / Characteristics Respiratory Depth Respiratory Pattern Blood Pressure 115/77 122/72 Blood Pressure [Left Arm] Blood Pressure Mean 93 82 Blood Pressure Mean [Left Arm] Blood Pressure Position Pulse Oximetry 95 96 94 Oxygen Delivery Method Sepsis Recent Fever Within 48 Hours Sepsis New/Unexplained Change in Mental Status Sepsis Action Taken by Nursing 04/16/19 19:31 04/16/19 19:40 04/16/19 19:50 Temperature Temperature Source Pulse Rate 79 80 87 Pulse Rate [Apical] Pulse Rate from SpO2 Sensor 80 81 89 Respiratory Rate 18 18 20 Respiratory Effort / Characteristics Respiratory Depth Respiratory Pattern Blood Pressure Blood Pressure [Left Arm] Blood Pressure Mean Blood Pressure Mean [Left Arm] Blood Pressure Position Pulse Oximetry 94 94 96 Oxygen Delivery Method Sepsis Recent Fever Within 48 Hours Sepsis New/Unexplained Change in Mental Status Sepsis Action Taken by Nursing 04/16/19 21:10 04/16/19 21:11 04/16/19 21:12 Temperature Temperature Source Pulse Rate 81 96 H 87 Pulse Rate [Apical] Pulse Rate from SpO2 Sensor Respiratory Rate 20 22 14 Respiratory Effort / Characteristics Respiratory Depth Respiratory Pattern Blood Pressure 120/75 Blood Pressure [Left Arm] Blood Pressure Mean 82 Blood Pressure Mean [Left Arm] Blood Pressure Position Pulse Oximetry Oxygen Delivery Method Sepsis Recent Fever Within 48 Hours Sepsis New/Unexplained Change in Mental Status Sepsis Action Taken by Nursing 04/16/19 22:00 04/16/19 22:01 04/16/19 23:01 Temperature Temperature Source Pulse Rate Pulse Rate [Apical] 81 Pulse Rate from SpO2 Sensor Respiratory Rate 18 15 20 Respiratory Effort / Characteristics Respiratory Depth Respiratory Pattern Blood Pressure 137/74 Blood Pressure [Left Arm] 124/72 Blood Pressure Mean 81 Blood Pressure Mean [Left Arm] 89 Blood Pressure Position Pulse Oximetry 98 Oxygen Delivery Method Sepsis Recent Fever Within 48 Hours Sepsis New/Unexplained Change in Mental Status Sepsis Action Taken by Nursing GENERAL: sitting up in bed, disheveled, chronically-ill appearing EYE EXAM: normal conjunctiva OROPHARYNX: no exudate, no erythema, lips, buccal mucosa, and tongue normal and mucous membranes are moist NECK: supple, no nuchal rigidity, no adenopathy, non-tender LUNGS: Clear to auscultation. Normal chest wall mechanics HEART: no murmurs, S1 normal and S2 normal CHEST: Reproducible anterior chest wall pain, same as stated complaint ABDOMEN: abdomen soft, non-tender, normo-active bowel sounds, no masses, no rebound or guarding. BACK: Back is symmetrical on inspection and there is no deformity, no midline tenderness, no CVA tenderness. SKIN: no rashes and no bruising UPPER EXTREMITIES: upper extremities are grossly normal. LOWER EXTREMITIES: No pitting edema. NEURO EXAM: Normal sensorium, cranial nerves II-XII grossly intact, normal speech, no gross weakness of arms, no gross weakness of legs. Course Course ED COURSE: Vital signs were reviewed and showed febrile. The patients medical record was reviewed The above diagnostic studies were performed and reviewed. ED treatments and interventions as stated above. 1845: The patient was evaluated in room B12B. A complete history and physical examination was performed. 2105: [facility] the [facility] will [facility] the patient for further evaluation. 2109: Upon reevaluation, the patient is resting comfortably. I discussed my findings with the patient and he understands and agrees with the treatment plan. Based on the patients age, coexisting illnesses, exam and lab findings the decision to treat as an inpatient was made. The patient remained stable while under my care. The patient will be evaluated for further management. Administered Medications Heparin Sodium/Dextrose (Heparin Sodium/Dextrose) 25,000 units in 500 mls @ 38 mls/hr IV .[id number] [facility]; Protocol Stop: 05/16/19 20:44 Last Admin: 04/16/19 21:22 Dose: 1,900 units/hr, 38 mls/hr Documented by: [id number] Cosigned by: [id number] Ioversol (Optiray 320 125ml) 119 ml IV ONCE PRN PRN Reason: Interaction Checking Stop: 04/20/19 20:16 Last Admin: 04/16/19 20:17 Dose: 119 ml Documented by: [id number] Discontinued Medications Azithromycin (Zithromax) 500 mg PO NOW ONE Stop: 04/16/19 20:43 Last Admin: 04/16/19 21:12 Dose: 500 mg Documented by: [id number] Heparin Sodium (Porcine) (Heparin Iv Bolus) Confirm Administered Dose 10,000 units .ROUTE .STK-MED ONE Stop: 04/16/19 21:19 Last Admin: 04/16/19 21:22 Dose: 5,000 units Documented by: [id number] Cosigned by: [id number] Heparin Sodium/Dextrose () 1 ea IV NOW STA; Protocol Stop: 04/16/19 20:43 Last Admin: 04/16/19 21:24 Dose: Not Given Documented by: [id number] Sodium Chloride (Nss 1000ml) 1,000 mls @ 999 mls/hr IV .Q1H1M ONE Stop: 04/16/19 19:51 Last Infusion: 04/16/19 20:01 Dose: 0 mls/hr Documented by: [id number] Admin: 04/16/19 19:00 Dose: 999 mls/hr Documented by: [id number] Ceftriaxone Sodium (Rocephin) 1,000 mg in 50 mls @ 100 mls/hr IV NOW STA Stop: 04/16/19 21:11 Last Infusion: 04/16/19 22:17 Dose: 0 mls/hr Documented by: [id number] Admin: 04/16/19 21:14 Dose: 100 mls/hr Documented by: [id number] Ketorolac Tromethamine (Toradol) 15 mg IV NOW ONE Stop: 04/16/19 19:27 Last Admin: 04/16/19 19:54 Dose: 15 mg Documented by: [id number] Morphine Sulfate (Morphine Sulfate) 4 mg IV NOW STA Stop: 04/16/19 21:38 Last Admin: 04/16/19 21:39 Dose: 4 mg Documented by: [id number] Ondansetron HCl (Zofran) 4 mg IV NOW STA Stop: 04/16/19 22:22 Last Admin: 04/16/19 22:25 Dose: 4 mg Documented by: [id number] Ondansetron HCl (Zofran) Confirm Administered Dose 4 mg .ROUTE .STK-MED ONE Stop: 04/16/19 22:23 Last Admin: 04/16/19 22:25 Dose: Not Given Documented by: [id number] Warfarin Sodium (Coumadin) 10 mg PO NOW ONE Stop: 04/16/19 22:05 Last Admin: 04/16/19 22:51 Dose: 10 mg Documented by: [id number] Medical Decision Making Differential Diagnosis Differential diagnoses includes but is not limited to acute coronary syndrome, myocardial infarction, pericarditis, pulmonary embolus, aortic dissection, pneumonia, pneumothorax, musculoskeletal, shingles, esophageal. Medical Records Attestation: I reviewed the patient's medical records. Home Medications Current Medication List: was personally reviewed by me Laboratory Data Attestation: I reviewed the patient's lab results. Result diagrams: 04/16/19 18:59 04/16/19 18:59 Lab Results 04/16/19 04/16/19 04/16/19 Range/Units 18:59 18:59 18:59 WBC 8.43 (4.8-10.8) K/uL RBC 4.84 (4.7-6.1) M/uL Hgb 14.8 (14.0-18.0) g/dL Hct 43.6 (42-52) % MCV 90.1 (80-100) fL MCH 30.6 (25-34) pg MCHC 33.9 (32-36) g/dL RDW Std Deviation 43.7 (36.4-46.3) fL RDW Coeff of Giancarlo 13.3 (11.5-14.5) % Plt Count 158 (130-400) K/uL MPV 10.0 (7.4-10.4) fL Immature Gran % (Auto) 0.2 % Neut % (Auto) 56.0 % Lymph % (Auto) 27.9 % Dawson % (Auto) 12.3 % Eos % (Auto) 2.7 % Baso % (Auto) 0.9 % Immature Gran # (Auto) 0.02 (0.00-0.02) K/uL Neut # (Auto) 4.71 (1.4-6.5) K/uL Lymph # (Auto) 2.35 (1.2-3.4) K/uL Dawson # (Auto) 1.04 H (0.11-0.59) K/uL Eos # (Auto) 0.23 (0-0.5) K/uL Baso # (Auto) 0.08 (0-0.2) K/uL PT 12.5 H (9.0-12.0) Seconds INR 1.2 H (0.9-1.1) Sodium 136 (136-145) mmol/L Potassium 4.0 (3.5-5.1) mmol/L Chloride 104 (98-107) mmol/L Carbon Dioxide 25 (21-32) mmol/L Anion Gap 6.0 (3-11) BUN 15 (7-18) mg/dl Creatinine 1.08 (0.6-1.4) mg/dl Est Cr Clr Drug Dosing 144.5 ml/min Est GFR ( Amer) 103.2 Est GFR (Non-Af Amer) 89.1 BUN/Creatinine Ratio 14.1 (10-20) Glucose 93 (70-99) mg/dl Calcium 8.8 (8.5-10.1) mg/dl Magnesium 2.0 (1.8-2.4) mg/dl Total Bilirubin 0.6 (0.2-1) mg/dl AST 13 L (15-37) U/L ALT 27 (12-78) U/L Alkaline Phosphatase 56 (45-117) U/L Troponin I < 0.015 (0-0.045) ng/ml Total Protein 7.2 (6.4-8.2) gm/dl Albumin 3.8 (3.4-5.0) gm/dl Globulin 3.4 (2.5-4.0) gm/dl Albumin/Globulin Ratio 1.1 (0.9-2) Lipase 94 (73-393) U/L Influenza Type A Ag (Neg) Influenza Type B Ag (Neg) 04/16/19 Range/Units 19:24 WBC (4.8-10.8) K/uL RBC (4.7-6.1) M/uL Hgb (14.0-18.0) g/dL Hct (42-52) % MCV (80-100) fL MCH (25-34) pg MCHC (32-36) g/dL RDW Std Deviation (36.4-46.3) fL RDW Coeff of Giancarlo (11.5-14.5) % Plt Count (130-400) K/uL MPV (7.4-10.4) fL Immature Gran % (Auto) % Neut % (Auto) % Lymph % (Auto) % Dawson % (Auto) % Eos % (Auto) % Baso % (Auto) % Immature Gran # (Auto) (0.00-0.02) K/uL Neut # (Auto) (1.4-6.5) K/uL Lymph # (Auto) (1.2-3.4) K/uL Dawson # (Auto) (0.11-0.59) K/uL Eos # (Auto) (0-0.5) K/uL Baso # (Auto) (0-0.2) K/uL PT (9.0-12.0) Seconds INR (0.9-1.1) Sodium (136-145) mmol/L Potassium (3.5-5.1) mmol/L Chloride (98-107) mmol/L Carbon Dioxide (21-32) mmol/L Anion Gap (3-11) BUN (7-18) mg/dl Creatinine (0.6-1.4) mg/dl Est Cr Clr Drug Dosing ml/min Est GFR ( Amer) Est GFR (Non-Af Amer) BUN/Creatinine Ratio (10-20) Glucose (70-99) mg/dl Calcium (8.5-10.1) mg/dl Magnesium (1.8-2.4) mg/dl Total Bilirubin (0.2-1) mg/dl AST (15-37) U/L ALT (12-78) U/L Alkaline Phosphatase (45-117) U/L Troponin I (0-0.045) ng/ml Total Protein (6.4-8.2) gm/dl Albumin (3.4-5.0) gm/dl Globulin (2.5-4.0) gm/dl Albumin/Globulin Ratio (0.9-2) Lipase (73-393) U/L Influenza Type A Ag Neg for Influ A (Neg) Influenza Type B Ag Neg for Influ B (Neg) Imaging Data Radiologist's Impression: Radiology results as stated below per my review and the radiologist's interpretation: CT angio chest PE protocol CT DOSE: 977.96 mGy.cm HISTORY: Chest pain. Dyspnea. Previous PE, INR low, chest pain TECHNIQUE: Multiaxial CT images of the chest were performed following the intravenous administration of contrast to evaluate the pulmonary arteries. Maximal intensity projection images were also obtained. A dose lowering technique was utilized adhering to the principles of ALARA. COMPARISON STUDY: 12/18/2018 FINDINGS: The thoracic aorta is unremarkable. There are several small third order filling defects right lung base. There is no evidence for main or central pulmonary embolus. Interval development of segmental atelectasis anterior aspect right lower lobe. Pre-existing atelectatic change posterior aspect right lower lobe has improved compared to the prior exam. Moderate interstitial prominence left and to a lesser extent right lung base. Pleural reactive change at both lung bases. IMPRESSION: 1. Study is positive for several very small emboli considered third order right lung base. 2. Mild focal consolidation anterior aspect right lower lobe versus the possibility of inflammatory process. Pulmonary infarct is considered less likely given its configuration and location. 3. Scattered atelectatic changes throughout both lung bases. The above report was generated using voice recognition software. It may contain grammatical, syntax or spelling errors. Electronically signed by: Ezio Gonzalez M.D. 04/16/2019 8:34 PM XR chest 1V portable CLINICAL HISTORY: Chest Pain condition COMPARISON STUDY: 02/20/2019 FINDINGS: Mild cardiac enlargement. Parenchymal infiltrate right base. Prominent pulmonary vascular congestion. Chronic atelectatic changes left base. IMPRESSION: 1. Poorly defined infiltrate right base. 2. Pulmonary vascular congestion. The above report was generated using voice recognition software. It may contain grammatical, syntax or spelling errors. Electronically signed by: Ezio Gonzalez M.D. 04/16/2019 7:05 PM ECG Data Attestation: I personally reviewed and interpreted this ECG as follows: Indication: + chest pain Rate (beats per minute): 83 Rhythm: + sinus rhythm ECG Intervals/blocks: + Normal QT ECG [place]: + Normal ECG ST segments: + T-wave inversions (lead 3) ECG Findings: no PVCs Blood Pressure Blood Pressure Findings: Normal blood pressure Blood Pressure Disposition: did not require urgent referral MDM Narrative Patient is a 33-year-old male with a past medical history of PE that presents the ER for bilateral chest pain which is been present for the past 24 hours associated with shortness of breath. He also has associated cough. He notes this feels like his previous PEs. IV was established blood work was obtained. Upon presentation he is found to be febrile and tachycardic. Fever is fairly low at 38 degrees. Labs show no significant leukocytosis or anemia. INR was subtherapeutic at 1.2. BMP along with LFTs bilirubin troponin lipase was unremarkable. Influenza was negative. With a low INR CT PE was performed and showed 3 small in combination with a questionable pneumonia. The patient's symp toms and as he has been fairly unreliable as he notes he has had previous low INR as I discussed with the hospitalist. He was placed on a heparin drip and given a heparin bolus. He was given a dose of antibiotics and updated bedside. He was also given IV pain medications. Patient was discussed with the hospitalist for observation. Impression & Plan Pulmonary embolism, Pneumonia, Chest pain, Subtherapeutic international normalized ratio (INR) Discharge Plan Visit Data Chief Complaint: Cardiac Assessment Stated Complaint: SOB, BACK AND CHEST PAIN-HX PE IN RT LUNG & LT LEG ED Provider: Refugio Mccoy Discharge Problem: Pulmonary embolism, Pneumonia, Chest pain, Subtherapeutic international normalized ratio (INR) Patient Disposition: Being Evaluated by Hospitalist Forms Stand Alone Forms: My [facility] Prescriptions Prescriptions: No Action (DME) compr.stocking,knee,long,large misc See Dose Instructions .ROUTE .MEDSUPPLY Qty: 12 RF: 0 warfarin 10 mg tablet 10 mg PO DAILY RF: 0 omeprazole 20 mg Tablet,Delayed Release (Dr/Ec) 20 mg PO DAILY PRN (Reason: Acid Reflux) RF: 0 ipratropium-albuterol 0.5 mg-3 mg(2.5 mg base)/3 mL solution for nebulization 3 ml INH QID PRN (Reason: Shortness Of Breath Or Wheezing) RF: 0 Referrals Referrals: Kenton Woodward DO [Primary Care Provider] - Discharge Problem: Pulmonary embolism Qualifiers: Pulmonary embolism type: unspecified Chronicity: acute Acute cor pulmonale presence: unspecified Qualified Code(s): I26.99 - Other pulmonary embolism without acute cor pulmonale Pneumonia Qualifiers: Pneumonia type: due to unspecified organism Laterality: unspecified laterality Lung location: unspecified part of lung Qualified Code(s): J18.9 - Pneumonia, unspecified organism Chest pain Qualifiers: Chest pain type: unspecified Qualified Code(s): R07.9 - Chest pain, unspecified The scribe's documentation has been prepared under my direction and personally reviewed by me in its entirety. I confirm that the note above accurately reflects all work, treatment, procedures, and medical decision making performed by me.
[2019-04-16] MEDS ORDERED: TRAMADOL HCL 50 MG TABLET ONE (23:21)
[2019-04-17] MEDS ORDERED: PROMETHAZINE HCL 12.5 MG in SODIUM CHLORIDE 0.9% 50 ML IV PRN (00:46)
[2019-04-17] MEDS ORDERED: NSS + 20MEQ KCL 20 MEQ/1,000 ML BAG IV ONE (00:46)
[2019-04-17] MEDS ORDERED: ACETAMINOPHEN 325 MG TAB PO PRN ×2 (00:46→08:00)
[2019-04-17] MEDS ORDERED: TRAMADOL HCL 50 MG TABLET PO PRN (00:46)
[2019-04-17] MEDS ORDERED: MoRPHine SULFATE 4 MG/ML 1 ML CARP\\VIAL IV PRN (00:46)
[2019-04-17] MEDS ORDERED: PANTOprazole 40 MG TAB PO PRN (01:06)
[2019-04-17 03:54] LABS: Basophils # (auto) 0.07 K/uL (0-0.2); Basophils % (auto) 0.9 %; Eosinophils # (auto) 0.12 K/uL (0-0.5); Eosinophils % (auto) 1.5 %; Hematocrit (blood only) 41.9 % (42-52); Hemoglobin 13.9 g/dL (14.0-18.0); Immature Granulocytes # (auto) 0.01 K/uL (0.00-0.02); Immature Granulocytes % (auto) 0.1 %; Lymphocytes # (auto) 1.93 K/uL (1.2-3.4); Lymphocytes % (auto) 24.3 %; Mean Corpuscular Hemoglobin 30.7 pg (25-34); Mean Corpuscular Hgb Conc 33.2 g/dL (32-36); Mean Corpuscular Volume 92.5 fL (80-100); Mean Platelet Volume 9.9 fL (7.4-10.4); Monocytes # (auto) 0.92 K/uL (0.11-0.59); Monocytes % (auto) 11.6 %; Neutrophils % (auto) 61.6 %; Platelet Count 144 K/uL (130-400); RDW Coefficient of Variation 13.2 % (11.5-14.5); RDW Standard Deviation 44.7 fL (36.4-46.3); Red Blood Count 4.53 M/uL (4.7-6.1); White Blood Count 7.95 K/uL (4.8-10.8)
[2019-04-17 04:03] LABS: Partial Thromboplastin Ratio 2.2
[2019-04-17 04:15] LABS: Partial Thromboplastin Time 60.1 Seconds (21.0-31.0)
[2019-04-17 10:15] LABS: INR 1.3 (0.9-1.1); Partial Thromboplastin Ratio 2.1; Prothrombin Time 13.3 Seconds (9.0-12.0)
[2019-04-17 10:16] LABS: BUN Creatinine Ratio 14.1 (10-20); Blood Urea Nitrogen 12 mg/dl (7-18); Calcium 7.9 mg/dl (8.5-10.1); Carbon Dioxide 27 mmol/L (21-32); Chloride 106 mmol/L (98-107); Creatinine Clr Calc Pharmacy 180.1 ml/min; Est GFR (African American) 130.5; Est GFR (Non-African American) 112.6; Glucose 104 mg/dl (70-99); Potassium 3.9 mmol/L (3.5-5.1); Sodium 135 mmol/L (136-145)
[2019-04-17 10:19] LABS: Partial Thromboplastin Time 55.7 Seconds (21.0-31.0)
[2019-04-17 10:20] LABS: Troponin I < 0.015 ng/ml (0-0.045)
[2019-04-17] MEDS ORDERED: ENOXAPARIN 150 MG/ML SYR SQ SCH (10:30)
--- NOTE | 2019-04-17 14:26 | Hospitalist Progress Note ---
Date of Service April 17, 2019 Assessment & Plan (1) Pulmonary embolism: Pulmonary embolism, subtherapeutic INR, anticoagulated by anticoagulation treatment -04/16/19: The patient is a 33 year old male who presents to the Emergency Room with complaints of constant chest pain for the past day. He notes that the pain is located on the right side. He states that the pain worsens when breathing, twisting, and turning. He notes that he has lower back pain as well. He states that he has had a cough for the past 2 days and reports that coughing worsens his pain -found to have subtherapeutic INR because of missing coumadin doses at home. No documented fever on this admission. CTA scan on this admission confirms several small emboli of 3rd order right lung base which correlates with lung infiltrate -no documented fever -patient was started on heparin IV drip with 10 mg daily coumadin -transitioned from heparin drip to Lovenox 1 mg/kg started on 04/28/19 -Patient INR on 04/17/19 is 1.2. Goal INR for anticoagulation for history of pulmonary embolism and history fo deep vein thrombosis is INR level of 2 to 3. Patient should take coumadin (warfarin) 10 mg daily with newly prescribed Lovenox 141 mg subcutaneously every 12 hours for 3 days or until the INR is 2 to 3 (which ever happens earlier). Patient should have INR checked by coumadin clinic and primary care doctor Discharge medication sent electronically to: [facility] [address] [place] [address] 04/22/2019 11:20 AM Provider Kenton Woodward DO Department General Internal Medicine [facility] CTA scan on this admission confirms several small emboli of 3rd order right lung base Patient should have follow up Chest X ray to follow right lung infiltrate as determined by family medical doctor Discharge Diagnosis: Pulmonary embolism, subtherapeutic INR, anticoagulated by anticoagulation treatment Subjective Patient denies acute pain of back or chest currently. was able to ambulate on room air. no dizziness. no headache. no abdominal pain. no vomiting. discharge plans discussed at length with patient Review of Systems Review of Systems: All systems reviewed & are unremarkable except as noted in HPI & below Physical Exam Constitutional: WD/WN, vitals as above Eyes: PERRL, conjunctivae normal, anicteric sclerae ENMT: external ear and nose normal, oropharynx normal Respiratory: normal respiratory effort, lungs clear to auscultation Cardiovascular: RRR, no murmur, no edema Gastrointestinal (Abdomen): normal bowel sounds, soft, nontender, no hepatosplenomegaly Musculoskeletal: Head/Neck/Chest: normocephalic and head atraumatic Neurologic: PERRL, EOMI, accommodation nl, no face palsy, no dysarthria CN's II-XI intact bilaterally Psychiatric: A+Ox3, euthymic affect Results & Data Vital Signs (Past 12 Hours) Vital Signs Temp Pulse Pulse Resp BP Pulse Ox 04/17/19 11:28 37.6 C H 83 18 109/69 94 04/17/19 07:32 37.2 C 70 18 105/67 96 04/17/19 07:16 72 04/17/19 04:10 36.9 C 83 20 105/53 L 97 (1) Pulmonary embolism Acute cor pulmonale presence: unspecified Chronicity: acute Pulmonary embolism type: unspecified Qualified Code(s): I26.99 - Other pulmonary embolism without acute cor pulmonale
--- NOTE | 2019-04-17 14:31 | Discharge Summary ---
Date of Service April 17, 2019 Admission HPI Per Admitting Provider History obtained from patient and records. Medical history significant for PE on Coumadin, chronic back pain, chronic eosinophilia as per records, ongoing tobacco abuse. Recent confinement December 2018 for acute pulmonary emboli. Patient discharged on Coumadin course. Last week patient noted flulike illness. Poor appetite. Was not able to take Coumadin for 2 days because he was not feeling well. Yesterday patient noted achy right subcostal pain with shortness of breath. No unusual cough symptoms. No diarrhea/dysuria. Low-grade fever. Patient evaluated at the ER. IV heparin started for PE on CT. 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 Admission Exam Per Admitting Provider GENERAL: Comfortable, obese, no respiratory distress SKIN: Normal color, warm HEENT: [place] palpebral conjunctivae, no ptosis, dry buccal mucosa NECK : Supple, no tenderness CHEST : Decreased breath sounds, right subcostal tenderness HEART : RRR, no obvious murmurs ABDOMEN: Some distention, nontender EXTREMITIES : Minimal LE swelling, no LE tenderness, no other conspicuous deformities noted NEUROLOGIC : Coherent, no facial asymmetry, no other gross focality Principal Diagnosis Pulmonary embolism, subtherapeutic INR, anticoagulated by anticoagulation treatment Discharge Exam Constitutional WD/WN, vitals as above Eyes PERRL, conjunctivae normal, anicteric sclerae ENMT external ear and nose normal, oropharynx normal Respiratory normal respiratory effort, lungs clear to auscultation Cardiovascular RRR, no murmur, no edema Gastrointestinal (Abdomen) normal bowel sounds, soft, nontender, no hepatosplenomegaly Musculoskeletal Head/Neck/Chest: normocephalic and head atraumatic Neurologic PERRL, EOMI, accommodation nl, no face palsy, no dysarthria CN's II-XI intact bilaterally Psychiatric A+Ox3, euthymic affect Discharge Data Allergies Allergy/AdvReac Type Severity Reaction Status Date / Time No Known Allergies Allergy Verified 04/16/19 20:02 Consultations 04/16/19 21:06 ED Decision to Admit Stat Ordered Studies 04/16/19 18:50 CT angio chest PE protocol Stat Hospital Course (1) Pulmonary embolism: Pulmonary embolism, subtherapeutic INR, anticoagulated by anticoagulation treatment -04/16/19: The patient is a 33 year old male who presents to the Emergency Room with complaints of constant chest pain for the past day. He notes that the pain is located on the right side. He states that the pain worsens when breathing, twisting, and turning. He notes that he has lower back pain as well. He states that he has had a cough for the past 2 days and reports that coughing worsens his pain -found to have subtherapeutic INR because of missing coumadin doses at home. No documented fever on this admission. CTA scan on this admission confirms several small emboli of 3rd order right lung base which correlates with lung infiltrate -no documented fever -pain controlled in the hospital course with pain medications -patient was started on heparin IV drip with 10 mg daily coumadin -transitioned from heparin drip to Lovenox 1 mg/kg started on 04/28/19 -Patient INR on 04/17/19 is 1.2. Goal INR for anticoagulation for history of pulmonary embolism and history fo deep vein thrombosis is INR level of 2 to 3. Patient should take coumadin (warfarin) 10 mg daily with newly prescribed Lovenox 141 mg subcutaneously every 12 hours for 3 days or until the INR is 2 to 3 (which ever happens earlier). Patient should have INR checked by coumadin clinic and primary care doctor Discharge medication sent electronically to: [facility] [address] [place] [address] 04/22/2019 11:20 AM Provider Kenton Woodward DO Department General Internal Medicine [facility] CTA scan on this admission confirms several small emboli of 3rd order right lung base Patient should have follow up Chest X ray to follow right lung infiltrate as determined by family medical doctor Discharge Diagnosis: Pulmonary embolism, subtherapeutic INR, anticoagulated by anticoagulation treatment Total Time Total Time Spent Total Time Spent (In Minutes): 40 minutes Total Time Includes: Examination of the Patient, Discharge Planning, Medication Reconciliation and Communication With Other Providers Discharge Plan Discharge Items Patient Disposition: Home - Self-Care Reason For Visit: RECURRENT PE Discharge Diagnosis: Pulmonary embolism, subtherapeutic INR, anticoagulated by anticoagulation treatment Condition on Discharge: Good Activity: Resume your previous activity Non-emergency contact: Primary Care Provider Call non-emergency contact if: you have any medication questions Follow-up/Referrals: Kenton Woodward DO [Primary Care Provider] - Diet: Regular Addtl Attending Provider Instructions: Patient INR on 04/17/19 is 1.2. Goal INR for anticoagulation for history of pulmonary embolism and history fo deep vein thrombosis is INR level of 2 to 3. Patient should take coumadin (warfarin) 10 mg daily with newly prescribed Lovenox 141 mg subcutaneously every 12 hours for 3 days or until the INR is 2 to 3 (which ever happens earlier). Patient should have INR checked by coumadin clinic and primary care doctor Discharge medication sent electronically to: [facility] [address] [place] [address] 04/22/2019 11:20 AM Provider Kenton Woodward DO Department General Internal Medicine [facility] CTA scan on this admission confirms several small emboli of 3rd order right lung base Patient should have follow up Chest X ray to follow right lung infiltrate as determined by family medical doctor Pending Studies at Discharge: Yes Stand-Alone Forms: My Frograms, Smoking Cessation Medications and DC Order Prescriptions: New enoxaparin [Lovenox] 150 mg/mL Syringe 141 mg subcut Q12 3 Days Qty: 6 RF: 0 Continued (DME) compr.stocking,knee,long,large misc See Dose Instructions .ROUTE .MEDSUPPLY Qty: 12 RF: 0 warfarin 10 mg tablet 10 mg PO DAILY RF: 0 omeprazole 20 mg Tablet,Delayed Release (Dr/Ec) 20 mg PO DAILY PRN (Reason: Acid Reflux) RF: 0 ipratropium-albuterol 0.5 mg-3 mg(2.5 mg base)/3 mL solution for nebulization 3 ml INH QID PRN (Reason: Shortness Of Breath Or Wheezing) RF: 0 Discharge Orders: Discharge Order (Routine); Ordered 04/17/19 Ordered By: Robert Briones Admission Data Admit Date/Time: 04/16/19 22:49 Attending Provider: Robert Briones Admit Provider: Basil Wen Primary Care Provider: Kenton Woodward Other Providers: Basil Wen
[2019-04-17] MEDS ORDERED: WARFARIN SOD 10 MG TAB PO SCH (16:00)
[2019-04-17] MEDS ORDERED: ENOXAPARIN 1 MG/KG SQ SCH (22:30)
== END 2019-04-17 14:55 | disposition home or self-care (01) ==
LOC: 2N 18:31 → ED 18:31 → 2N 23:46

== ENCOUNTER 2019-05-03 19:26 | Inpatient (IN) ==
[2019-05-03] MEDS ORDERED: ONDANSETRON INJ 2 MG/ML 2 ML VIAL IV STA (21:38)
[2019-05-03] MEDS ORDERED: MoRPHine SULFATE 4 MG/ML 1 ML CARP\\VIAL IV STA ×2 (21:38→23:00)
[2019-05-03] MEDS ORDERED: SODIUM CHLORIDE 0.9% 1000ML 1,000 ML IV ONE (21:38)
[2019-05-03 21:40] LABS: Hematocrit (blood only) 48.3 % (42-52); Hemoglobin 16.2 g/dL (14.0-18.0); Mean Corpuscular Hemoglobin 30.8 pg (25-34); Mean Corpuscular Hgb Conc 33.5 g/dL (32-36); Mean Corpuscular Volume 91.8 fL (80-100); Mean Platelet Volume 10.2 fL (7.4-10.4); Platelet Count 240 K/uL (130-400); RDW Coefficient of Variation 13.2 % (11.5-14.5); RDW Standard Deviation 44.1 fL (36.4-46.3); Red Blood Count 5.26 M/uL (4.7-6.1); White Blood Count 13.24 K/uL (4.8-10.8)
[2019-05-03 21:58] LABS: Albumin Level 4.1 gm/dl (3.4-5.0); BUN Creatinine Ratio 17.5 (10-20); Calcium 9.2 mg/dl (8.5-10.1); Creatinine Clr Calc Pharmacy 158.8 ml/min; Est GFR (Non-African American) 102.7; Potassium 4.1 mmol/L (3.5-5.1)
[2019-05-03 22:01] LABS: Albumin Globulin Ratio 1.2 (0.9-2); Bilirubin,Total 0.6 mg/dl (0.2-1); Globulin 3.5 gm/dl (2.5-4.0); Total Protein 7.6 gm/dl (6.4-8.2)
[2019-05-03 22:03] LABS: INR 1.8 (0.9-1.1); Partial Thromboplastin Ratio 1.7; Prothrombin Time 17.8 Seconds (9.0-12.0)
[2019-05-03 22:05] LABS: Partial Thromboplastin Time 45.2 Seconds (21.0-31.0)
[2019-05-03] MEDS ORDERED: IOVERSOL 100ml IV PRN (22:08)
[2019-05-03 22:21] LABS: Appearance Urine Clear (Clear); Bilirubin Urine Negative (Negative); Blood Urine Negative (Negative); Color Urine Dark Yellow; Glucose Urine UA Negative (Negative); Ketones Urine Negative (Negative); Leukocyte Esterase Urine Negative (Negative); Nitrite Urine Negative (Negative); Protein Urine Negative (Negative); Urobilinogen Urine Negative (Negative)
--- NOTE | 2019-05-03 22:36 | CT Scan Report ---
ABDOMEN AND PELVIS CT WITH IV CONTRAST CT DOSE: 1620.31 mGy.cm HISTORY: Acute lower abdominal pain with GI bleed lower abd pain, GI bleed TECHNIQUE: Multiaxial CT images of the abdomen and pelvis were performed following the IV administrat ion of 94 cc of Optiray 320, A dose lowering technique was utilized adhering to the principles of AL LESLIE. COMPARISON STUDY: CTA of the chest 04/16/2019, CT abdomen and pelvis 12/02/2018 FINDINGS: There is mild dependent subsegmental bibasilar atelectasis. No pneumatosis or pneumoperitoneum. The i geoff inferior cardiac chambers are unremarkable. Spleen, adrenal glands, pancreas and liver appear u nremarkable. Cholecystectomy. Mild intrahepatic and extrahepatic biliary ductal dilation is likely on a postsurgical basis. There are a few cystic foci of the hepatic dome measuring up to 6 mm, too smal l to characterize however suggestive of hepatic cysts. Kidneys, and ureters appear unremarkable. Mild urinary bladder wall thickening is likely secondary to partial distention. Unremarkable prostate. Ao rta and IVC are unremarkable. No adenopathy. Mild wall thickening of the distal esophagus. There are several fluid-filled loops of small bowel wit h scattered air-fluid levels. There is equivocal wall thickening the duodenum within the first segmen t. Trace free pelvic fluid. Decompressed large bowel. Noninflamed appendix. Small fat filled umbilica l hernia, diastases 2.07 m. Soft tissues are within normal limits. L4 limbus vertebra. Bones appear i ntact. IMPRESSION: 1. Multiple air and fluid-filled prominent nondilated loops of small bowel within the abdomen and pel vis are suggestive of enteritis or ileus. 2. No bowel obstruction, pneumatosis or pneumoperitoneum. 3. Normal appendix. 4. Cholecystectomy. 5. Small fat filled periumbilical hernia. ACT 112: Negative or not required by law. The above report was generated using voice recognition software. It may contain grammatical, syntax o r spelling errors. Electronically signed by: Singh Benavides M.D. 05/03/2019 10:34 PM
[2019-05-04] MEDS ORDERED: HEPARIN SODIUM/DEXTROSE 25,000 UNITS/500 ML BAG IV SCH (00:32)
[2019-05-04] MEDS ORDERED: NITROGLYCERIN SL 0.4 MG/TAB TAB SL PRN (00:32)
[2019-05-04] MEDS ORDERED: ONDANSETRON INJ 2 MG/ML 2 ML VIAL IV PRN (00:32)
[2019-05-04] MEDS ORDERED: ACETAMINOPHEN 325 MG TAB PO PRN (00:32)
--- NOTE | 2019-05-04 00:33 | Emergency Department Note ---
History of Present Illness General Chief complaint: Rectal Bleed Stated complaint: BLEEDING STOOL,AND STOMACH PAIN History of Present Illness Maximum Pain Intensity: 7 This 33-year-old presents to the ER complaining of abdominal pain and rectal bleeding Location: Lower abdomen Quality: Crampy Severity: Moderate Duration: Today Timing: Symptoms started at 2 PM Context: Patient was concerned and came in Modifying factors: better with nothing; worse with palpation Patient is on Coumadin for PE. This was a new diagnosis. INR last week was normal. Patient denies black stool, chest pain, dyspnea, back pain, urinary symptoms, lightheadedness or dizziness. No history of rectal bleeding. Home Medications Home Medications Medication Instructions Recorded Confirmed Type omeprazole 20 mg PO DAILY PRN 03/16/18 05/03/19 History warfarin 10 mg PO HS 05/03/19 05/03/19 History Allergies Allergy/AdvReac Type Severity Reaction Status Date / Time No Known Allergies Allergy Verified 05/03/19 22:21 Past Med/Surg History Medical History GERD (gastroesophageal reflux disease) (Chronic) Smoking (Chronic) Tobacco use (Chronic) Surgical History H/O adenoidectomy (Chronic) History of cholecystectomy (Chronic) History of tonsillectomy (Chronic) Hx of shoulder surgery (Chronic) Family History Other Diabetes Thyroid disorder Social History Preferred Language: Serbian Communication Ability: Effective 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 Surgery Required: No Beliefs That Will Affect Care: None marital status: Single Current Living Situation: Significant Other Current Living Situation Comment: with girlfriend Feels Safe at Home: Yes Smoking Status: Current every day smoker Tobacco Type: cigarettes ; Age Started Using Tobacco: 18 ; packs per day: 1.5 ; Cigarettes Per Day: 3 ; Second Hand Exposure: Yes ; Hx Alcohol Use: No Hx Substance Use: No Review of Systems A total of 10 systems reviewed and were otherwise negative Physical Exam Vital Signs Vital Signs - 24 hr 05/03/19 19:38 05/03/19 21:15 05/03/19 21:17 Temperature 36.8 C Temperature Source Oral Pulse Rate 80 62 Pulse Rate [Right] Pulse Rate from SpO2 Sensor 62 Pulse Rhythm [Right] Pulse Strength [Right] Respiratory Rate 18 18 Respiratory Effort / Characteristics Non-Labored Spontaneous Respiratory Depth Normal Blood Pressure 133/82 124/80 Blood Pressure [Right Arm] Blood Pressure Mean 99 84 Blood Pressure Mean [Right Arm] Blood Pressure Position [Right Arm] Pulse Oximetry 97 96 96 Oxygen Delivery Method Room Air Room Air Sepsis Recent Fever Within 48 Hours No Sepsis Action Taken by Nursing No Action Required 05/03/19 21:19 05/03/19 21:22 05/03/19 21:30 Temperature Temperature Source Pulse Rate 63 64 Pulse Rate [Right] 64 Pulse Rate from SpO2 Sensor 64 63 Pulse Rhythm [Right] Regular Pulse Strength [Right] Normal Respiratory Rate 22 16 17 Respiratory Effort / Characteristics Non-Labored Spontaneous Respiratory Depth Normal Blood Pressure Blood Pressure [Right Arm] 124/80 Blood Pressure Mean Blood Pressure Mean [Right Arm] 94 Blood Pressure Position [Right Arm] Sitting Pulse Oximetry 96 96 96 Oxygen Delivery Method Room Air Sepsis Recent Fever Within 48 Hours Sepsis Action Taken by Nursing 05/03/19 22:00 05/03/19 22:01 05/03/19 22:30 Temperature Temperature Source Pulse Rate 59 L Pulse Rate [Right] Pulse Rate from SpO2 Sensor 62 64 59 L Pulse Rhythm [Right] Pulse Strength [Right] Respiratory Rate 16 Respiratory Effort / Characteristics Respiratory Depth Blood Pressure 119/81 120/87 Blood Pressure [Right Arm] Blood Pressure Mean 90 95 Blood Pressure Mean [Right Arm] Blood Pressure Position [Right Arm] Pulse Oximetry 96 96 96 Oxygen Delivery Method Sepsis Recent Fever Within 48 Hours Sepsis Action Taken by Nursing 05/03/19 22:31 05/03/19 23:00 05/03/19 23:01 Temperature Temperature Source Pulse Rate 62 60 63 Pulse Rate [Right] Pulse Rate from SpO2 Sensor 62 61 62 Pulse Rhythm [Right] Pulse Strength [Right] Respiratory Rate 16 17 17 Respiratory Effort / Characteristics Respiratory Depth Blood Pressure 119/72 Blood Pressure [Right Arm] Blood Pressure Mean 79 Blood Pressure Mean [Right Arm] Blood Pressure Position [Right Arm] Pulse Oximetry 97 95 95 Oxygen Delivery Method Sepsis Recent Fever Within 48 Hours Sepsis Action Taken by Nursing 05/03/19 23:30 05/03/19 23:31 Temperature Temperature Source Pulse Rate 65 47 L Pulse Rate [Right] Pulse Rate from SpO2 Sensor 61 48 L Pulse Rhythm [Right] Pulse Strength [Right] Respiratory Rate 18 13 Respiratory Effort / Characteristics Respiratory Depth Blood Pressure 136/89 Blood Pressure [Right Arm] Blood Pressure Mean 102 Blood Pressure Mean [Right Arm] Blood Pressure Position [Right Arm] Pulse Oximetry 96 96 Oxygen Delivery Method Sepsis Recent Fever Within 48 Hours Sepsis Action Taken by Nursing VITALS: Vitals are noted on the nurse's note and reviewed by myself. Vital signs stable. GENERAL: Pleasant male, in no acute distress, nondiaphoretic, well-developed well-nourished. SKIN: Capillary reflex less than 2 seconds. HEENT: Normocephalic. PERRLA. EOMI. Nares patent. Mucous membranes moist. Neck is supple without nuchal rigidity. HEART: Regular rate and rhythm without murmurs gallops or rubs. LUNGS: Clear to auscultation bilaterally without wheezes, rales or rhonchi. No retractions or accessory muscle use. ABDOMEN: Positive bowel sounds x 4. Normal tympanic percussion. Soft, tender to palpation lower abdomen, without masses or organomegaly. Hensley sign negative. No guarding or rebound tenderness. No CVA tenderness Rectal exam: No fissures or tears, blood in the vault, no hemorrhoids visible MUSCULOSKELETAL: No gross musculoskeletal defects. NEURO: Patient was alert and oriented to person place and time. Normal se nsation to light and sharp touch. No focal neurological deficits. Course Administered Medications Ioversol (Optiray 320 100ml) 94 ml IV ONCE PRN PRN Reason: Interaction Checking Stop: 05/07/19 22:07 Last Admin: 05/03/19 22:08 Dose: 94 ml Documented by: [id number] Discontinued Medications Sodium Chloride (Nss 1000ml) 1,000 mls @ 999 mls/hr IV .Q1H1M ONE Stop: 05/03/19 22:38 Last Infusion: 05/03/19 23:46 Dose: 0 mls/hr Documented by: [id number] Admin: 05/03/19 22:01 Dose: 999 mls/hr Documented by: [id number] Morphine Sulfate (Morphine Sulfate) 4 mg IV NOW STA Stop: 05/03/19 21:39 Last Admin: 05/03/19 22:01 Dose: 4 mg Documented by: [id number] Morphine Sulfate (Morphine Sulfate) 4 mg IV NOW STA Stop: 05/03/19 23:01 Last Admin: 05/03/19 23:16 Dose: 4 mg Documented by: [id number] Ondansetron HCl (Zofran) 4 mg IV NOW STA Stop: 05/03/19 21:39 Last Admin: 05/03/19 22:01 Dose: 4 mg Documented by: [id number] Medical Decision Making Medical Records Attestation: I reviewed the patient's medical records. Home Medications Current Medication List: was personally reviewed by me Laboratory Data Attestation: I reviewed the patient's lab results. Result diagrams: 05/03/19 21:11 05/03/19 21:11 Lab Results 05/03/19 05/03/19 05/03/19 Range/Units 21:11 21:11 21:11 WBC 13.24 H (4.8-10.8) K/uL RBC 5.26 (4.7-6.1) M/uL Hgb 16.2 (14.0-18.0) g/dL Hct 48.3 (42-52) % MCV 91.8 (80-100) fL MCH 30.8 (25-34) pg MCHC 33.5 (32-36) g/dL RDW Std Deviation 44.1 (36.4-46.3) fL RDW Coeff of Giancarlo 13.2 (11.5-14.5) % Plt Count 240 (130-400) K/uL MPV 10.2 (7.4-10.4) fL PT 17.8 H (9.0-12.0) Seconds INR 1.8 H (0.9-1.1) APTT 45.2 H* (21.0-31.0) Seconds PTT Ratio 1.7 Sodium 141 (136-145) mmol/L Potassium 4.1 (3.5-5.1) mmol/L Chloride 109 H (98-107) mmol/L Carbon Dioxide 28 (21-32) mmol/L Anion Gap 4.0 (3-11) BUN 17 (7-18) mg/dl Creatinine 0.96 (0.6-1.4) mg/dl Est Cr Clr Drug Dosing 158.8 ml/min Est GFR ( Amer) 119.0 Est GFR (Non-Af Amer) 102.7 BUN/Creatinine Ratio 17.5 (10-20) Glucose 97 (70-99) mg/dl Calcium 9.2 (8.5-10.1) mg/dl Total Bilirubin 0.6 (0.2-1) mg/dl AST 13 L (15-37) U/L ALT 35 (12-78) U/L Alkaline Phosphatase 53 (45-117) U/L Total Protein 7.6 (6.4-8.2) gm/dl Albumin 4.1 (3.4-5.0) gm/dl Globulin 3.5 (2.5-4.0) gm/dl Albumin/Globulin Ratio 1.2 (0.9-2) Urine Color Urine Appearance (Clear) Urine pH (4.5-7.5) Ur Specific [place] (1.000-1.030) Urine Protein (Negative) Urine Glucose (UA) (Negative) Urine Ketones (Negative) Urine Blood (Negative) Urine Nitrite (Negative) Urine Bilirubin (Negative) Urine Urobilinogen (Negative) Ur Leukocyte Esterase (Negative) Blood Type Antibody Screen 05/03/19 05/03/19 Range/Units 21:11 21:38 WBC (4.8-10.8) K/uL RBC (4.7-6.1) M/uL Hgb (14.0-18.0) g/dL Hct (42-52) % MCV (80-100) fL MCH (25-34) pg MCHC (32-36) g/dL RDW Std Deviation (36.4-46.3) fL RDW Coeff of Giancarlo (11.5-14.5) % Plt Count (130-400) K/uL MPV (7.4-10.4) fL PT (9.0-12.0) Seconds INR (0.9-1.1) APTT (21.0-31.0) Seconds PTT Ratio Sodium (136-145) mmol/L Potassium (3.5-5.1) mmol/L Chloride (98-107) mmol/L Carbon Dioxide (21-32) mmol/L Anion Gap (3-11) BUN (7-18) mg/dl Creatinine (0.6-1.4) mg/dl Est Cr Clr Drug Dosing ml/min Est GFR ( Amer) Est GFR (Non-Af Amer) BUN/Creatinine Ratio (10-20) Glucose (70-99) mg/dl Calcium (8.5-10.1) mg/dl Total Bilirubin (0.2-1) mg/dl AST (15-37) U/L ALT (12-78) U/L Alkaline Phosphatase (45-117) U/L Total Protein (6.4-8.2) gm/dl Albumin (3.4-5.0) gm/dl Globulin (2.5-4.0) gm/dl Albumin/Globulin Ratio (0.9-2) Urine Color Dark Yellow Urine Appearance Clear (Clear) Urine pH 5.0 (4.5-7.5) Ur Specific [place] 1.030 (1.000-1.030) Urine Protein Negative (Negative) Urine Glucose (UA) Negative (Negative) Urine Ketones Negative (Negative) Urine Blood Negative (Negative) Urine Nitrite Negative (Negative) Urine Bilirubin Negative (Negative) Urine Urobilinogen Negative (Negative) Ur Leukocyte Esterase Negative (Negative) Blood Type A Positive Antibody Screen NEGATIVE Imaging Data Attestation: I personally reviewed and interpreted this imaging study as follows: MDM Narrative Prior records/ancillary studies reviewed. Triage Nursing notes reviewed. Additional history obtained from the family The patient's history was concerning for possible gastrointestinal bleeding. Differential diagnosis: Etiologies such as diverticulosis, AVM, coagulopathy, colitis, inflammatory bowel disease, malignancy, Angi-Trivedi tear, esophagitis, peptic ulcer disease, variceal bleed, gastritis, epistaxis, fissure, hemorrhoids, as well as others were entertained. Physical exam: As above. The patients vital signs were stable. ER treatment provided: IV fluids, morphine, Zofran On reassessment the patient felt better. Diagnostics interpreted by me: The labs revealed stable H&H, subtherapeutic INR Imaging studies: ABDOMEN AND PELVIS CT WITH IV CONTRAST CT DOSE: 1620.31 mGy.cm HISTORY: Acute lower abdominal pain with GI bleed lower abd pain, GI bleed TECHNIQUE: Multiaxial CT images of the abdomen and pelvis were performed following the IV administration of 94 cc of Optiray 320, A dose lowering technique was utilized adhering to the principles of ALARA. COMPARISON STUDY: CTA of the chest 04/16/2019, CT abdomen and pelvis 12/02/2018 FINDINGS: There is mild dependent subsegmental bibasilar atelectasis. No pneumatosis or pneumoperitoneum. The imaged inferior cardiac chambers are unremarkable. Spleen, adrenal glands, pancreas and liver appear unremarkable. Cholecystectomy. Mild intrahepatic and extrahepatic biliary ductal dilation is likely on a postsurgical basis. There are a few cystic foci of the hepatic dome measuring up to 6 mm, too small to characterize however suggestive of hepatic cysts. Kidneys, and ureters appear unremarkable. Mild urinary bladder wall thickening is likely secondary to partial distention. Unremarkable prostate. Aorta and IVC are unremarkable. No adenopathy. Mild wall thickening of the distal esophagus. There are several fluid-filled loops of small bowel with scattered air-fluid levels. There is equivocal wall thickening the duodenum within the first segment. Trace free pelvic fluid. Decompressed large bowel. Noninflamed appendix. Small fat filled umbilical hernia, diastases 2.07 m. Soft tissues are within normal limits. L4 limbus vertebra. Bones appear intact. IMPRESSION: 1. Multiple air and fluid-filled prominent nondilated loops of small bowel within the abdomen and pelvis are suggestive of enteritis or ileus. 2. No bowel obstruction, pneumatosis or pneumoperitoneum. 3. Normal appendix. 4. Cholecystectomy. 5. Small fat filled periumbilical hernia. ACT 112: Negative or not required by law. The above report was generated using voice recognition software. It may contain grammatical, syntax or spelling errors. Electronically signed by: Singh Benavides M.D. 05/03/2019 10:34 PM Consultation: A consultation was placed with Dr Samuel, hospitalist. The case was discussed and diagnostics were reviewed. The patient was evaluated in the ER for further treatment. This appears to be consistent with rectal bleeding with enteritis on imaging. Patient felt somewhat better after being medicated as above. He was still moderate amount of pain. He is on Coumadin. Medicine was consulted. He will be evaluated for possible admission. He had no more episodes of rectal bleeding in the ER. H&H were stable. By the evaluation outlined above emergent etiologies such as esophageal perforation, peptic ulcer disease, variceal bleed, coagulopathy, gastritis, epistaxis, malignancy, as well as others were deemed relatively unlikely. The pt informed about the findings as listed above. All questions were answered and pleased with the treatment. Case reviewed with my attending The chart was completed utilizing [employer] voice recognition software. Grammatical errors, random word insertions, pronoun errors, and incomplete sentences are an occassional consequence of this system due to software limitations, ambient noise, and hardware issues. Any formal questions or concerns about the content, text, or information contained within the body of this dictation should be directly addressed to the physician sales assistant entertainment and media for clarification. Impression & Plan Enteritis, Subtherapeutic international normalized ratio (INR), Bright red rectal bleeding Discharge Plan Visit Data Chief Complaint: Rectal Bleed Stated Complaint: BLEEDING STOOL,AND STOMACH PAIN ED Provider: Sandra Echevarria ED Midlevel Provider: Lyndsey Land Discharge Problem: Enteritis, Subtherapeutic international normalized ratio (INR), Bright red rectal bleeding Patient Disposition: Being Evaluated by Hospitalist Condition: Good Discharge Instructions Interventions: ED Discharge Assessment Last Done: 05/04/19 00:04
[2019-05-04] MEDS: D5W AND NSS 1,000 ML IV SCH ×3 (01:18→16:18)
[2019-05-04] MEDS: Heparin IV Low Dose *NO* Bolus IV SCH ×2 (01:38→01:50)
[2019-05-04] MEDS: MoRPHine SULFATE 4 MG/ML 1 ML CARP\\VIAL IV PRN ×2 (02:06→08:34)
--- NOTE | 2019-05-04 04:13 | History and Physical Report ---
DATE OF ADMISSION: 05/03/2019 CHIEF COMPLAINT: Rectal bleed and abdominal pain. HISTORY OF PRESENT ILLNESS: This is a 33-year-old male with history of pulmonary embolism, first diagnosed in December 2018 and he was again admitted on 04/16/2019. Again at that time, he was found to have small clots at right lung base On the CAT scan on 04/16/2019 again he was found to have very small several emboli considered third order right lung base. At that time, his INR was subtherapeutic. History of chronic back pain, comes here because of rectal bleed small amounts, 3 episodes today, and also abdominal pain. Denies any nausea, vomiting. No fever, no chills, no chest pain, no shortness of breath, no cough, no headache, no blurred vision, no earache, no runny nose, no sore throat. No rash. No other complaints. Hemoglobin is stable at 16. His INR is 1.8. Resting comfortably and hemodynamically stable. CAT scan is showing possible enteritis versus ileus. ALLERGIES: No known drug allergies. PAST MEDICAL HISTORY: As mentioned above. PAST SURGICAL HISTORY: Laparoscopic cholecystectomy, tonsillectomy, adenoidectomy. MEDICATIONS: The patient is on Coumadin 15 mg daily or as directed. FAMILY HISTORY: Significant for father has hemochromatosis, diabetes, thyroid disorder, DVT. Mother has diabetes, thyroid disorder. SOCIAL HISTORY: Single, former smoker, smoked half pack a day for 2 years. Alcohol occasional. No drug use. REVIEW OF SYSTEMS: As per HPI. Rest of the review of systems negative. PHYSICAL EXAMINATION: GENERAL: The patient is morbidly obese, not in acute distress. VITAL SIGNS: Temperature 36.8, pulse 62, respiratory rate 16, blood pressure 120/87, oxygen 97% on room air. HEENT: No pallor, no icterus. Pupils equal, round, reactive to light. NECK: No JVD, no neck masses, no carotid bruits. CARDIOVASCULAR: S1, S2 heard, regular rate and rhythm, no murmur, no gallop. RESPIRATORY SYSTEM: Normal AP diameter. No accessory muscle use. No wheezing, no crackles. ABDOMEN: Soft, bowel sounds present. Mild abdominal discomfort. No guarding, no rigidity. No distention. CENTRAL NERVOUS SYSTEM: Cranial nerves II-XII grossly nonfocal. EXTREMITIES: No edema, no erythema. LABORATORY DATA: WBC 13.2, hemoglobin 16.2, hematocrit 48.3, platelets 240. PT18.8, INR 1.8, APTT 45.2. Sodium 141, potassium 4.1, chloride 109, bicarbonate 28, BUN 17, creatinine 0.9, serum glucose 97, calcium 9.2, total bilirubin 0.6, AST 13, ALT 35, alkaline phosphatase 53. Urinalysis positive. IMAGING DATA: CT of abdomen and pelvis shows multiple air and fluid-filled prominent nondilated loops of small bowel within the abdomen and pelvis suggestive of enteritis or ileus. No bowel obstruction, pneumatosis, or pneumoperitoneum. Normal appendix, cholecystectomy, small fat-filled periumbilical hernia. ASSESSMENT AND PLAN: This is a 33-year-old male who presents with abdominal pain and rectal bleed. 1. Abdominal pain and rectal bleed. Rectal bleed, small amounts. Hemoglobin is stable. CAT scan is showing enteritis versus ileus. We will keep him n.p.o. Since his cholecystectomy, he says he always has diarrhea. No nausea or vomiting. We will place him on IV fluids with D5 normal saline at 125 mL per hour, IV morphine p.r.n. Consult GI in the a.m. for further recommendations. We will also check his lactic acid. Monitor on the medical floor. 2. History of pulmonary embolism, first diagnosed in December 2018, on Coumadin, and on 04/16/2019 again was found to have pulmonary embolism in the distal right lung base. At that time, his INR was subtherapeutic, today his INR is 1.8. It is already more than 3 months since his major pulmonary embolism. His father also has deep venous thrombosis. Duration of anticoagulation to be determined as it is more than 3 months now from the major pulmonary embolism, but he is status post a small pulmonary embolism about couple of weeks ago. His INR is subtherapeutic presently. So we will place him on IV heparin, low-dose protocol, and hold the Coumadin for now If he develops significant bleeding, then we will stop the heparin and he needs to be evaluated for IVC filter. 3. Deep venous thrombosis prophylaxis, IV heparin. DISPOSITION: Admit to med/surg tele. Expect to discharge home and follow with family doctor. Level 1 full code. H and H every 6 hours. MTDD
[2019-05-04 05:38] LABS: Basophils # (auto) 0.08 K/uL (0-0.2); Eosinophils # (auto) 0.47 K/uL (0-0.5); Eosinophils % (auto) 5.6 %; Hematocrit (blood only) 42.5 % (42-52); Hemoglobin 14.1 g/dL (14.0-18.0); Immature Granulocytes # (auto) 0.01 K/uL (0.00-0.02); Immature Granulocytes % (auto) 0.1 %; Lymphocytes # (auto) 3.07 K/uL (1.2-3.4); Lymphocytes % (auto) 36.5 %; Mean Corpuscular Hemoglobin 30.2 pg (25-34); Mean Corpuscular Hgb Conc 33.2 g/dL (32-36); Mean Platelet Volume 9.9 fL (7.4-10.4); Monocytes % (auto) 9.5 %; Neutrophils # (auto) 3.98 K/uL (1.4-6.5); Neutrophils % (auto) 47.3 %; Platelet Count 192 K/uL (130-400); RDW Coefficient of Variation 13.2 % (11.5-14.5); RDW Standard Deviation 43.4 fL (36.4-46.3); Red Blood Count 4.67 M/uL (4.7-6.1); White Blood Count 8.41 K/uL (4.8-10.8)
[2019-05-04 05:46] LABS: INR 1.9 (0.9-1.1); Prothrombin Time 18.8 Seconds (9.0-12.0)
[2019-05-04 06:00] LABS: Calcium 8.1 mg/dl (8.5-10.1); Creatinine Clr Calc Pharmacy 195.9 ml/min; Est GFR (African American) 136.5; Est GFR (Non-African American) 117.8; Magnesium 2.1 mg/dl (1.8-2.4); Potassium 3.8 mmol/L (3.5-5.1)
[2019-05-04 07:56] LABS: Partial Thromboplastin Ratio 2.1; Partial Thromboplastin Time 57.7 Seconds (21.0-31.0)
[2019-05-04] MEDS: PANTOprazole 40 MG TAB PO SCH (08:34)
--- NOTE | 2019-05-04 11:09 | Gastrointestinal Consultation ---
Date of Consultation May 04, 2019 Assessment & Plan (1) Bright red rectal bleeding: Self limited, normal H/H, seems hemorrhoidal or could be related to gastroenteritis. Feels fine, no abdominal pain. No endoscopic intervention at this time but will need colonoscopy electively in 2 weeks to r/o other etiologies like malignancy and IBD. Clear liquid diet now and advance as tolerated. Can resume Anticoagulation. Continue PO PPI. Consider Colestipol for post cholecystectomy diarrhea. Recall GI if needed. (2) Enteritis: (3) GERD (gastroesophageal reflux disease): History of Present Illness Attending Physician: Marissa Caldera MD 33 year old male with history of pulmonary embolism diagnosed in 12/2018, seems provoked after pneumonitis, presented to the hospital with lower abdominal pain, dull, mild, nonradiating, felt as cramps, associated with few episodes of bright red bleeding per rectum, he also reports chronic diarrhea since he had cholecystectomy. Recall GI upset after eating outside food few days ago. No nausea or vomiting, no fever or chills, no recent travel, no hematemesis, no similar episodes in the past, no weight loss. Labs showed normal H/H and INR is 1.8. CT scan showed possible enteritis. He feels great since admission, no further rectal bleeding and passing gas. No abdominal pain and thinks PPI helped. Allergies Allergy/AdvReac Type Severity Reaction Status Date / Time No Known Allergies Allergy Verified 05/03/19 22:21 Home Medications Home Medications Medication Instructions Recorded Confirmed Type omeprazole 20 mg PO DAILY PRN 03/16/18 05/03/19 History warfarin 10 mg PO HS 05/03/19 05/03/19 History Patient History Medical History GERD (gastroesophageal reflux disease) (Chronic) Smoking (Chronic) Tobacco use (Chronic) Surgical History H/O adenoidectomy (Chronic) History of cholecystectomy (Chronic) History of tonsillectomy (Chronic) Hx of shoulder surgery (Chronic) Family History Other Diabetes Thyroid disorder Social History Preferred Language: [place] Communication Ability: Effective Broke Man Required: No Beliefs That Will Affect Care: None marital status: Single Current Living Situation: Significant Other Current Living Situation Comment: girlfriend Feels Safe at Home: Yes Safety Concerns: Feels Safe At This Time Smoking Status: Former smoker Tobacco Type: cigarettes ; Age Started Using Tobacco: 18 ; packs per day: 1.5 ; Cigarettes Per Day: 3 ; Smoking End Date: 2 weeks ago ; Second Hand Exposure: Yes ; Hx Alcohol Use: Yes Alcohol type: beer Hx Substance Use: No Review of Systems Constitutional: no fever, no chills, no fatigue and no weight loss Eyes: no eye pain and no worsening vision Ear, Nose, Mouth, Throat: no tinnitus, no dizziness, no nasal discharge and no epistaxis Respiratory: no cough, no dyspnea, no dyspnea on exertion and no wheezing Cardiovascular: no chest pain, no orthopnea, no palpitations and no edema Gastrointestinal: as per Subjective / HPI Musculoskeletal: no stiffness and no myalgia Neurologic: no localized weakness, no paralysis, no tremor(s) and no headache(s) Endocrine: no polydipsia and no polyuria Hematologic / Lymphatic: no easy bleeding and no night sweats Physical Exam Constitutional: + well hydrated, cooperative and comfortable Eyes: PERRL, conjunctivae normal, anicteric sclerae ENMT: external ear and nose normal, oropharynx normal Neck: normal visual inspection and trachea midline Respiratory: normal respiratory effort, lungs clear to auscultation Auscultation: no wheezes Cardiovascular: RRR, no murmur, no edema Gastrointestinal (Abdomen): normal bowel sounds, soft, nontender, no hepatosplenomegaly Musculoskeletal: no cyanosis or clubbing, extremities motor strength 5/5 Skin: no rashes, warm and dry Neurologic: awake; no focal motor deficits Motor/Sensory: no tremor Results & Data Vital Signs (Past 12 Hours) Vital Signs Temp Pulse Pulse Resp BP BP BP 05/04/19 10:00 58 L 05/04/19 07:16 36.4 C L 43 L 18 101/64 05/04/19 03:54 36.4 C L 50 L 18 112/63 05/04/19 02:00 58 L 05/04/19 01:02 36.5 C 63 16 122/80 05/04/19 00:04 57 L 16 122/83 05/03/19 23:31 47 L 13 05/03/19 23:30 65 18 136/89 05/03/19 23:01 63 17 Pulse Ox 05/04/19 10:00 05/04/19 07:16 95 05/04/19 03:54 95 05/04/19 02:00 05/04/19 01:02 93 05/04/19 00:04 95 05/03/19 23:31 96 05/03/19 23:30 96 05/03/19 23:01 95 Laboratory Results Laboratory Results - last 24 hr 05/03/19 05/03/19 05/03/19 21:11 21:11 21:11 WBC 13.24 H RBC 5.26 Hgb 16.2 Hct 48.3 MCV 91.8 MCH 30.8 MCHC 33.5 RDW Std Deviation 44.1 RDW Coeff of Giancarlo 13.2 Plt Count 240 MPV 10.2 Immature Gran % (Auto) Neut % (Auto) Lymph % (Auto) [place] % (Auto) Eos % (Auto) Baso % (Auto) Immature Gran # (Auto) Neut # (Auto) Lymph # (Auto) [place] # (Auto) Eos # (Auto) Baso # (Auto) PT 17.8 H INR 1.8 H APTT 45.2 H* PTT Ratio 1.7 Sodium 141 Potassium 4.1 Chloride 109 H Carbon Dioxide 28 Anion Gap 4.0 BUN 17 Creatinine 0.96 Est Cr Clr Drug Dosing 158.8 Est GFR ( Amer) 119.0 Est GFR (Non-Af Amer) 102.7 BUN/Creatinine Ratio 17.5 Glucose 97 Lactate Calcium 9.2 Magnesium Total Bilirubin 0.6 AST 13 L ALT 35 Alkaline Phosphatase 53 Total Protein 7.6 Albumin 4.1 Globulin 3.5 Albumin/Globulin Ratio 1.2 Urine Color Urine Appearance Urine pH Ur Specific [employer] Urine Protein Urine Glucose (UA) Urine Ketones Urine Blood Urine Nitrite Urine Bilirubin Urine Urobilinogen Ur Leukocyte Esterase Blood Type Antibody Screen 05/03/19 05/03/19 05/04/19 21:11 21:38 00:39 WBC RBC Hgb Hct MCV MCH MCHC RDW Std Deviation RDW Coeff of Giancarlo Plt Count MPV Immature Gran % (Auto) Neut % (Auto) Lymph % (Auto) [place] % (Auto) Eos % (Auto) Baso % (Auto) Immature Gran # (Auto) Neut # (Auto) Lymph # (Auto) [place] # (Auto) Eos # (Auto) Baso # (Auto) PT INR APTT PTT Ratio Sodium Potassium Chloride Carbon Dioxide Anion Gap BUN Creatinine Est Cr Clr Drug Dosing Est GFR ( Amer) Est GFR (Non-Af Amer) BUN/Creatinine Ratio Glucose Lactate 0.6 Calcium Magnesium Total Bilirubin AST ALT Alkaline Phosphatase Total Protein Albumin Globulin Albumin/Globulin Ratio Urine Color Dark Yellow Urine Appearance Clear Urine pH 5.0 Ur Specific [employer] 1.030 Urine Protein Negative Urine Glucose (UA) Negative Urine Ketones Negative Urine Blood Negative Urine Nitrite Negative Urine Bilirubin Negative Urine Urobilinogen Negative Ur Leukocyte Esterase Negative Blood Type A Positive Antibody Screen NEGATIVE 05/04/19 05/04/19 05/04/19 05:10 05:10 05:10 WBC 8.41 RBC 4.67 L Hgb 14.1 Hct 42.5 MCV 91.0 MCH 30.2 MCHC 33.2 RDW Std Deviation 43.4 RDW Coeff of Giancarlo 13.2 Plt Count 192 MPV 9.9 Immature Gran % (Auto) 0.1 Neut % (Auto) 47.3 Lymph % (Auto) 36.5 [place]house % (Auto) 9.5 Eos % (Auto) 5.6 Baso % (Auto) 1.0 Immature Gran # (Auto) 0.01 Neut # (Auto) 3.98 Lymph # (Auto) 3.07 [place] # (Auto) 0.80 H Eos # (Auto) 0.47 Baso # (Auto) 0.08 PT 18.8 H INR 1.9 H APTT PTT Ratio Sodium 141 Potassium 3.8 Chloride 112 H Carbon Dioxide 28 Anion Gap 1.0 L BUN 14 Creatinine 0.78 Est Cr Clr Drug Dosing 195.9 Est GFR ( Amer) 136.5 Est GFR (Non-Af Amer) 117.8 BUN/Creatinine Ratio 18.0 Glucose 95 Lactate Calcium 8.1 L Magnesium 2.1 Total Bilirubin AST ALT Alkaline Phosphatase Total Protein Albumin Globulin Albumin/Globulin Ratio Urine Color Urine Appearance Urine pH Ur Specific [employer] Urine Protein Urine Glucose (UA) Urine Ketones Urine Blood Urine Nitrite Urine Bilirubin Urine Urobilinogen Ur Leukocyte Esterase Blood Type Antibody Screen 05/04/19 07:22 WBC RBC Hgb Hct MCV MCH MCHC RDW Std Deviation RDW Coeff of Giancarlo Plt Count MPV Immature Gran % (Auto) Neut % (Auto) Lymph % (Auto) [place] % (Auto) Eos % (Auto) Baso % (Auto) Immature Gran # (Auto) Neut # (Auto) Lymph # (Auto) [place] # (Auto) Eos # (Auto) Baso # (Auto) PT INR APTT 57.7 H* PTT Ratio 2.1 Sodium Potassium Chloride Carbon Dioxide Anion Gap BUN Creatinine Est Cr Clr Drug Dosing Est GFR ( Amer) Est GFR (Non-Af Amer) BUN/Creatinine Ratio Glucose Lactate Calcium Magnesium Total Bilirubin AST ALT Alkaline Phosphatase Total Protein Albumin Globulin Albumin/Globulin Ratio Urine Color Urine Appearance Urine pH Ur Specific [employer] Urine Protein Urine Glucose (UA) Urine Ketones Urine Blood Urine Nitrite Urine Bilirubin Urine Urobilinogen Ur Leukocyte Esterase Blood Type Antibody Screen
[2019-05-04 11:32] LABS: Hematocrit (blood only) 42.6 % (42-52); Hemoglobin 14.2 g/dL (14.0-18.0)
--- NOTE | 2019-05-04 16:06 | Hospitalist Progress Note ---
Date of Service May 04, 2019 Assessment & Plan (1) Bright red rectal bleeding: Admitted with bright red blood per rectumX3 episode No further episode since admission, no complaint of nausea vomiting, H&H has been stable Appreciate input from gastroenterology, things lower GI bleed possibly caused by hemorrhoids, As no active GI bleeding noted no indication for emergent endoscopy will be scheduled for outpatient EGD colonoscopy per GI team Anticoagulation/Coumadin resumed Diet advanced observe overnight, plan to discharge home tomorrow if no further episode of GI bleed noted History of DVT/PE Coumadin resumed, as no further GI bleeding noted CODE STATUS: Full code Disposition: Expected to be discharged home tomorrow if H&H stays stable no episode of GI bleed Subjective Feels fine, no further episode of blood per rectum, no nausea vomiting, Complaint of lower abdominal cramps earlier which has resolved Patient reports of intermittent abdominal cramps for almost a year, pain is relieved after bowel movement On clear liquid diet, has been tolerating well, vitals been stable Review of Systems Review of Systems: All systems reviewed & are unremarkable except as noted in HPI & below Physical Exam Constitutional: WD/WN, vitals as above no acute distress Eyes: PERRL, conjunctivae normal, anicteric sclerae ENMT: external ear and nose normal, oropharynx normal Neck: trachea midline, no thyromegaly Respiratory: normal respiratory effort, lungs clear to auscultation Cardiovascular: RRR, no murmur, no edema Gastrointestinal (Abdomen): normal bowel sounds, soft, nontender, no hepatosplenomegaly Musculoskeletal: no cyanosis or clubbing, extremities motor strength 5/5 Skin: no rashes, warm and dry Neurologic: PERRL, EOMI, accommodation nl, no face palsy, no dysarthria Psychiatric: A+Ox3, euthymic affect Results & Data Vital Signs (Past 12 Hours) Vital Signs Temp Pulse Pulse Resp BP Pulse Ox 05/04/19 11:23 36.7 C 41 L 16 107/68 94 05/04/19 10:00 58 L 05/04/19 07:16 36.4 C L 43 L 18 101/64 95
[2019-05-04] MEDS ORDERED: TRAMADOL HCL 50 MG TABLET PO PRN (17:21)
[2019-05-04] MEDS ORDERED: TRAMADOL HCL 50 MG TABLET ONE (17:30)
[2019-05-04 17:32] LABS: Hematocrit (blood only) 44.9 % (42-52); Hemoglobin 14.8 g/dL (14.0-18.0)
[2019-05-04] MEDS ORDERED: WARFARIN SOD 10 MG TAB PO SCH (19:00)
[2019-05-05] MEDS: PANTOprazole 40 MG TAB PO SCH (07:43)
[2019-05-05 07:47] LABS: Hematocrit (blood only) 43.6 % (42-52); Hemoglobin 14.6 g/dL (14.0-18.0)
[2019-05-05 07:58] LABS: INR 1.6 (0.9-1.1); Prothrombin Time 15.7 Seconds (9.0-12.0)
--- NOTE | 2019-05-05 13:47 | Discharge Summary ---
Date of Service May 05, 2019 Admission HPI Per Admitting Provider DICTATED BY: Dhaval Samuel MD DATE OF ADMISSION: 05/03/2019 CHIEF COMPLAINT: Rectal bleed and abdominal pain. HISTORY OF PRESENT ILLNESS: This is a 33-year-old male with history of pulmonary embolism, first diagnosed in December 2018 and he was again admitted on 04/16/2019. Again at that time, he was found to have small clots at right lung base On the CAT scan on 04/16/2019 again he was found to have very small several emboli considered third order right lung base. At that time, his INR was subtherapeutic. History of chronic back pain, comes here because of rectal bleed small amounts, 3 episodes today, and also abdominal pain. Denies any nausea, vomiting. No fever, no chills, no chest pain, no shortness of breath, no cough, no headache, no blurred vision, no earache, no runny nose, no sore throat. No rash. No other complaints. Hemoglobin is stable at 16. His INR is 1.8. Resting comfortably and hemodynamically stable. CAT scan is showing possible enteritis versus ileus. Principal Diagnosis Bright red blood per rectum, lower GI bleed, resolved History of pulmonary embolism on anticoagulation Discharge Exam Constitutional WD/WN, vitals as above no acute distress Eyes PERRL, conjunctivae normal, anicteric sclerae ENMT external ear and nose normal, oropharynx normal Neck trachea midline, no thyromegaly Respiratory normal respiratory effort, lungs clear to auscultation Cardiovascular RRR, no murmur, no edema Gastrointestinal (Abdomen) normal bowel sounds, soft, nontender, no hepatosplenomegaly Musculoskeletal no cyanosis or clubbing, extremities motor strength 5/5 Skin no rashes, warm and dry Neurologic PERRL, EOMI, accommodation nl, no face palsy, no dysarthria Psychiatric A+Ox3, euthymic affect Discharge Data Allergies Allergy/AdvReac Type Severity Reaction Status Date / Time No Known Allergies Allergy Verified 05/03/19 22:21 Consultations 05/03/19 23:22 ED Decision to Admit Stat 05/04/19 00:32 Consult Gastroenterology Routine Ordered Studies 05/03/19 21:38 CT abd pelvis IV con only Stat Hospital Course (1) Bright red rectal bleeding: Admitted with bright red blood per rectumX3 episode No further episode since admission, no complaint of nausea vomiting, H&H has been stable Appreciate input from gastroenterology, things lower GI bleed possibly caused by hemorrhoids, As no active GI bleeding noted no indication for emergent endoscopy will be scheduled for outpatient EGD colonoscopy per GI team Anticoagulation/Coumadin resumed Diet advanced to solid, tolerating well, MARYAM globin stable, discussed with GI, patient is stable to be discharged home today outpatient follow-up with gastroenterology to schedule EGD/colonoscopy in 4-6 weeks History of DVT/PE Coumadin resumed, as no further GI bleeding noted Patient will continue to follow-up with outpatient anticoagulation clinic for monitoring of PT/INR and Coumadin dose CODE STATUS: Full code Disposition: Able to be discharged home today Total Time Total Time Spent Total Time Spent (In Minutes): Approximately 35 minutes Total Time Includes: Examination of the Patient, Discharge Planning and Medication Reconciliation Discharge Plan Discharge Items Patient Disposition: Home - Self-Care Reason For Visit: RECTAL BLEED, ABDOMINAL PAIN Discharge Diagnosis: Bright red blood per rectum, lower GI bleed, resolved History of pulmonary embolism on anticoagulation Condition on Discharge: Good Activity: Resume your previous activity Non-emergency contact: Primary Care Provider Call non-emergency contact if: you have any medication questions Follow-up/Referrals: Meng Cruz [Physician] - (Gastroenterology follow-up in 4-6 weeks for EGD/colonoscopy) Kenton Woodward DO [Primary Care Provider] - (Hospital follow-up in 1 week) Diet: Gluten Free, Low Fat and Lactose Intolerant Addtl Attending Provider Instructions: Do not take aspirin, Motrin, Advil, Aleve, ibuprofen, naproxen, can cause gastric ulcer/bleeding Follow-up with family physician within a week Gastroenterology office at [facility]- will give you a call to schedule outpatient endoscopy in 4-6 weeks Pending Studies at Discharge: No Stand-Alone Forms: My [employer], Smoking Cessation Medications and DC Order Prescriptions: Continued omeprazole 20 mg Tablet,Delayed Release (Dr/Ec) 20 mg PO DAILY PRN (Reason: Acid Reflux) RF: 0 warfarin 5 mg tablet 10 mg PO HS RF: 0 Discharge Orders: Discharge Order (Routine); Ordered 05/05/19 Ordered By: Marissa Caldera Admission Data Admit Date/Time: 05/03/19 23:43 Attending Provider: Marissa Caldera Admit Provider: Dhaval Samuel Primary Care Provider: Kenton Woodward Other Providers: Dhaval Samuel ; Gela Dunne ; Vita Eagle ; René Weems ; Shannon Grijalva ; Meng Cruz ; Carter Girffith ; Erica Glez ; Alexandra Anne ; Stanley Estrada ; Dl Ferrer ; Vee Lawrence ; Rand Carmen ; Amena Saavedra ; Bernie Corbett ; Liseth Prince
== END 2019-05-05 13:57 | disposition home or self-care (01) | DRG 379 ==
LOC: ED 19:26 → 2W 23:43

== ENCOUNTER 2025-03-10 08:09 | Observation (INO) ==
[2025-03-10] MEDS: SODIUM CHLORIDE 0.9% 1,000 ML IV ONE (08:29)
[2025-03-10 08:38] LABS: Hematocrit (blood only) 47.5 % (42.0-52.0); Hemoglobin 16.1 g/dl (14.0-18.0); Immature Granulocytes # (auto) 0.04 K/uL (0.01-0.20); Immature Granulocytes % (auto) 0.4 %; Mean Corpuscular Hemoglobin 30.2 pg (25.0-34.0); Mean Corpuscular Volume 89.1 fL (80.0-100.0); Platelet Count 186 K/uL (130-400); RDW Standard Deviation 41.1 fL (36.4-46.3); Red Blood Count 5.33 M/uL (4.70-6.10); White Blood Count 11.05 K/ul (4.8-10.8)
--- NOTE | 2025-03-10 08:51 | XRay Report ---
XR chest 1V portable CLINICAL HISTORY: Chest pain, nonspecific COMPARISON STUDY: 03/07/2025 FINDINGS: Heart size and pulmonary vasculature are normal. There is interval streaky reticular and pa tchy opacity at the right lung base. No other consolidation or pleural effusion. No pneumothorax. IMPRESSION: Early pneumonia right lung base. ACT 112: Negative or not required by law. Electronically signed by: Thompson Mcqueen M.D. 03/10/2025 8:50 AM
--- NOTE | 2025-03-10 08:54 | Emergency Department Note ---
Impression & Plan Pulmonary embolism, Pulmonary infarct, Shortness of breath, Pleurisy ED Provider Note NAME: JEFRY MONTGOMERY III AGE: 39 SEX: M : 1985 ARRIVES VIA: Walk-In INFORMANT: Patient ED PROVIDER(S): Christian Morales MD CHIEF COMPLAINT: Chest pain, left thigh pain PLAN: Disposition: Admit MEDICAL DECISION MAKING: The patient is a pleasant 39-year-old gentleman with a past medical history of DVT/PE where he had completed anticoagulation who presents to the Emergency Department via walk-in for evaluation of ongoing chest pain worse with inspiration and associated shortness of breath and left thigh pain. Patient presents in the setting of being seen in this emergency department on 03/07 for similar symptoms where he was started on therapeutic Xarelto given ultrasound demonstrating superficial thrombophlebitis of of the greater saphenous vein terminating 1.3 cm proximal to the common femoral vein his left lower extremity. The patient was also diagnosed with pneumonia and started on Augmentin. Patient reports persistent chest pain bilaterally "under his ribs. He reports persistent pain in his left thigh as well. 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 He reports a history of smoking but has not smoked since he has been feeling ill. He denies any fevers, nausea, vomiting, diarrhea or urinary symptoms. On evaluation the patient is mildly dyspneic but no acute distress, afebrile with heart in the 90s and O2 saturation 90% and greater on room air. Lungs with intermittent wheeze bilateral lung nance and otherwise clear. Patient was treated with IV fluid hydration, IV APAP, IV dexamethasone and albuterol MDI for component of bronchospasm. EKG without overt acute ischemia. CXR suggestive of right lower lobe pneumonia however lungs better characterized on CTA of the chest subsequently. WBC 11K with neutrophilia but no left shift, nonspecific. D-dimer was elevated at [address] imaging subsequently. Chemistry without metabolic acidosis. Electrolytes and LFTs unremarkable. High-sensitivity troponin is undetectable. Procalcitonin is not elevated. Respiratory BioFire was negative. CTA of the chest was performed and demonstrates several subsegmental right lower lobe pulmonary emboli. Right lower lobe opacity is suggestive of associated pulmonary infarct. Small right pleural effusion is noted. Suspect pulmonary emboli and infarct likely present on prior CT. Given the patient was only recently started on Xarelto at therapeutic dose and patient predominantly reports no improvement in chest pain or thigh pain, low suspicion for treatment failure at this time. However, given persistence of his symptoms with ongoing shortness of breath patient was referred to the hospital service for admission for further management. [facility], who will evaluate the patient for admission. Further management per admitting team. Triage Nursing notes reviewed and agree them. Prior/external medical records reviewed Vital Signs: reviewed Differential diagnosis: Reactive airway disease, pneumonia, pneumothorax, COPD, CHF, infections, cardiac ischemia, pulmonary embolism, musculoskeletal, gastrointestinal, as well as other pathologies. ER treatment provided: See below. Diagnostics interpreted by me: ECG: Sinus rhythm with sinus arrhythmia, 86 bpm, no ectopy, no overt ST elevation or depression, QTc 409, QRS 84. Cardiac Monitoring: An order for continuous cardiac monitoring was placed and demonstrated sinus rhythm, 86 bpm, no ectopy. Laboratory studies: See below Imaging studies: See below Consultation(s): [facility], who will evaluate the patient for admission. HPI: Per MDM. ROS: See above HPI for pertinent positives & negatives. A total of 10 systems reviewed and were otherwise negative. VITALS:See Below PHYSICAL EXAMINATION: GENERAL: Awake, alert, in no distress HENT: Normocephalic, atraumatic. Oropharynx with dry mucous membranes and otherwise unremarkable.. EYES: Normal conjunctiva. Sclera non-icteric. NECK: Supple. No nuchal rigidity. FROM. No JVD. RESPIRATORY: Clear to auscultation. CARDIAC: Regular rate, normal rhythm. Extremities warm and well perfused. Pulses equal. ABDOMEN: Soft, non-distended. No tenderness to palpation. No rebound or guarding. No masses. MUSCULOSKELETAL: Chest examination reveals no tenderness. The back is symmetrical on inspection without obvious abnormality. There is no CVA tenderness to palpation. No joint edema. LOWER EXTREMITIES: Calves are equal size bilaterally and non-tender. No edema. No discoloration. NEURO: Normal sensorium. No sensory or motor deficits noted. SKIN: No rash or jaundice noted. Christian Morales MD Past Med/Surg History Problem List (Updated 03/10/25 @ 23:11 by Christian Morales MD) Pleurisy (Acute) Shortness of breath (Acute) Pulmonary infarct (Acute) Pneumonia (Acute) Acute deep vein thrombosis (DVT) of left lower extremity (Acute) COVID-19 (Acute) Pulmonary embolism (Acute) Enteritis (Acute) Subtherapeutic international normalized ratio (INR) (Acute) Bright red rectal bleeding (Acute) Pneumonia (Acute) Chest pain (Acute) Subtherapeutic international normalized ratio (INR) (Acute) Acute pulmonary embolism Weight loss, abnormal Multiple pulmonary emboli (Acute) Pulmonary infarct (Acute) Right-sided chest pain (Acute) Leukocytosis (Acute) Superficial vein thrombosis (Acute) Sepsis Smoking (Chronic) DVT prophylaxis Tobacco use (Chronic) Hx of shoulder surgery (Chronic) History of tonsillectomy (Chronic) H/O adenoidectomy (Chronic) History of cholecystectomy (Chronic) GERD (gastroesophageal reflux disease) (Chronic) Pneumonia (Acute) Family History Other Diabetes Thyroid disorder Social History Smoking Status: Current every day smoker Tobacco Type: Cigarettes Age Started Using Tobacco: 18; packs per day: 1.5; Cigarettes Per Day: 3; Second Hand Exposure: Yes; Do You Dip or Chew Tobacco: No (former); Hx Alcohol Use: Yes Alcohol type: beer Hx Substance Use: No Preferred Language: Latvian Communication Ability: Effective Yarn Spooler Required: No Beliefs That Will Affect Care: None marital status: Single Current Living Situation: Family Current Living Situation Comment: girlfriend Feels Safe at Home: Yes Safety Concerns: Feels Safe At This Time Assistive Devices: None Allergies Allergies Allergy/AdvReac Type Severity Reaction Status Date / Time No Known Allergies Allergy Verified 01/14/24 19:44 Home Meds Home Medications Medication Instructions Recorded Confirmed amoxicillin 875 mg tablet 875 mg PO BID 03/10/25 03/10/25 Previous Rx's Medication Instructions Recorded rivaroxaban 15 mg (42)-20 mg (9) See Rx Instructions PO .COMPLEX 03/08/25 tablets in a starter pack (Xarelto #51 ea DVT-PE Treatment 30-Day Starter) Results & Data (ED) Vital Signs Vital Signs - 24 hr 03/10/25 08:12 03/10/25 08:24 03/10/25 08:24 Temperature 36.6 C Temperature Source Temporal Artery Scan Pulse Rate 94 H Respiratory Rate 18 Respiratory Effort / Characteristics Non-Labored Spontaneous Non-Labored Spontaneous Respiratory Depth Normal Normal Blood Pressure 133/82 Blood Pressure Mean 99 Blood Pressure Position Sitting Pulse Oximetry 95 96 Oxygen Delivery Method Room Air Room Air Sepsis Recent Fever Within 48 Hours No Sepsis New/Unexplained Change in Mental Status No Sepsis Action Taken by Nursing No Action Required 03/10/25 08:24 03/10/25 08:24 03/10/25 09:06 Temperature Temperature Source Pulse Rate 95 H 79 Respiratory Rate 19 Respiratory Effort / Characteristics Respiratory Depth Blood Pressure 124/83 Blood Pressure Mean 96 Blood Pressure Position Pulse Oximetry 96 94 Oxygen Delivery Method Room Air Room Air Sepsis Recent Fever Within 48 Hours Sepsis New/Unexplained Change in Mental Status Sepsis Action Taken by Nursing Laboratory Data Attestation: I reviewed the patient's lab results. 03/10/25 08:20 03/10/25 08:20 Lab Results 03/10/25 03/10/25 Range/Units 08:20 09:01 WBC 11.05 H (4.8-10.8) K/ul RBC 5.33 (4.70-6.10) M/uL Hgb 16.1 (14.0-18.0) g/dl Hct 47.5 (42.0-52.0) % MCV 89.1 (80.0-100.0) fL MCH 30.2 (25.0-34.0) pg MCHC 33.9 (32.0-36.0) g/dL RDW Std Deviation 41.1 (36.4-46.3) fL RDW Coeff of Giancarlo 12.6 (11.5-14.5) % Plt Count 186 (130-400) K/uL MPV 10.1 (9.4-12.4) fL Immature Gran % (Auto) 0.4 % Neut % (Auto) 66.1 % Lymph % (Auto) 20.8 % Hampton % (Auto) 8.0 % Eos % (Auto) 3.7 % Baso % (Auto) 1.0 % Neut # (Auto) 7.31 H (1.40-6.50) K/uL Lymph # (Auto) 2.30 (1.20-3.40) K/uL Hampton # (Auto) 0.88 H (0.11-0.59) K/uL Eos # (Auto) 0.41 (0.00-0.50) K/uL Baso # (Auto) 0.11 (0.00-0.20) K/uL Immature Gran # (Auto) 0.04 (0.01-0.20) K/uL D-Dimer 1040 H* (0-500) ug/L FEU Sodium 138 (136-145) mmol/L Potassium 3.9 (3.5-5.1) mmol/L Chloride 107 (98-107) mmol/L Carbon Dioxide 23 (21-32) mmol/L Anion Gap 8 (3-11) BUN 14 (6-23) mg/dl Creatinine 0.98 (0.6-1.4) mg/dl Est Cr Clr Drug Dosing 155.2 ml/min eGFR 99.97 BUN/Creatinine Ratio 14.3 (10-20) Glucose 195 H (70-99(Fasting)) mg/dl Calcium 8.9 (8.6-10.3) mg/dl Magnesium 2.0 (1.7-2.4) mg/dl Total Bilirubin 0.5 (0.2-1.0) mg/dl AST 10 L (13-39) U/L ALT 19 (7-52) U/L Alkaline Phosphatase 50 (34-104) U/L Troponin I High Sens < 2.3 (0-20) pg/ml Total Protein 7.4 (6.0-8.3) gm/dl Albumin 4.2 (3.4-5.0) gm/dl Globulin 3.2 (2.5-4.0) gm/dl Albumin/Globulin Ratio 1.3 (0.9-2) Lipase 14 (11-82) U/L Procalcitonin < 0.02 (0-0.5) ng/ml Adenovirus (PCR) Not Detected (NotDetected) B. pertussis DNA (PCR) Not Detected (NotDetected) B.parapertussis DNA PCR Not Detected (NotDetected) C. pneumoniae DNA (PCR) Not Detected (NotDetected) Coronavirus OC43 (PCR) Not Detected (NotDetected) Coronavirus HKU1 (PCR) Not Detected (NotDetected) Coronavirus 229E (PCR) Not Detected (NotDetected) SARS-CoV-2 (PCR) Not Detected (NotDetected) Coronavirus NL63 (PCR) Not Detected (NotDetected) Human Metapneumovir PCR Not Detected (NotDetected) Influenza Type A (PCR) Not Detected (NotDetected) Influenza Type B (PCR) Not Detected (NotDetected) M. pneumoniae (PCR) Not Detected (NotDetected) Parainfluenza 1 (PCR) Not Detected (NotDetected) Parainfluenza 2 (PCR) Not Detected (NotDetected) Parainfluenza 3 (PCR) Not Detected (NotDetected) Parainfluenza 4 (PCR) Not Detected (NotDetected) RSV (PCR) Not Detected (NotDetected) Entero/Rhino (PCR) Not Detected (NotDetected) Administered Medications Acetaminophen (Acetaminophen 325 Mg Tab) 650 mg PO Q4H PRN PRN Reason: pain/fever Stop: 04/09/25 14:02 Last Admin: 03/10/25 22:39 Dose: 650 mg Documented By: Admin: 03/10/25 15:27 Dose: 650 mg Documented By: TETO Ibuprofen (Ibuprofen 600 Mg Tab) 600 mg PO Q4H PRN PRN Reason: Pain or Fever Stop: 04/09/25 11:42 Last Admin: 03/10/25 21:27 Dose: 600 mg Documented By: Admin: 03/10/25 13:33 Dose: 600 mg Documented By: LOIS Rivaroxaban (Rivaroxaban 15 Mg Tab) 15 mg PO BID ABHILASH Stop: 04/09/25 20:59 Last Admin: 03/10/25 21:27 Dose: 15 mg Documented By: JAKE Discontinued Medications Albuterol (Albuterol Hfa 8 Gm Inhaler) 2 puffs INH NOW ONE Stop: 03/10/25 08:53 Last Admin: 03/10/25 08:56 Dose: 2 puffs Documented By: STEPHANIE Dexamethasone Sodium Phosphate (DexamethasonePf 10 Mg/Ml Vial) 10 mg IV NOW ONE Stop: 03/10/25 08:53 Last Admin: 03/10/25 08:57 Dose: 10 mg Documented By: STEPHANIE Sodium Chloride (Nss) 1,000 mls @ 999 mls/hr IV .Q1H1M ONE Stop: 03/10/25 09:20 Last Infusion: 03/10/25 09:56 Dose: Infused Documented By: Admin: 03/10/25 08:29 Dose: 999 mls/hr Documented By: Acetaminophen (Ofirmev) 1,000 mg in 100 mls @ 400 mls/hr IV NOW STA Stop: 03/10/25 09:07 Last Infusion: 03/10/25 09:18 Dose: Infused Documented By: Admin: 03/10/25 08:57 Dose: 400 mls/hr Documented By: STEPHANIE Ioversol (Optiray 320 100ml) 112 ml IV ONCE ONE Stop: 03/10/25 09:59 Last Admin: 03/10/25 11:45 Dose: Not Given Documented By: LOIS Ioversol (Optiray 320 125ml) 112 ml IV ONCE ONE Stop: 03/10/25 10:00 Last Admin: 03/10/25 09:59 Dose: 112 ml Documented By: MISSAEL Ketorolac Tromethamine (Ketorolac Tromethamine 15 Mg/Ml Vial) 10 mg IV NOW ONE Stop: 03/10/25 17:48 Last Admin: 03/10/25 18:09 Dose: 10 mg Documented By: TETO Imaging Data Radiologist's Impression: Venous Doppler Study 03/10/25 09:33 ULTRASOUND LEFT LOWER EXTREMITY VENOUS CLINICAL HISTORY: Left leg pain. Deep venous thrombosis. COMPARISON STUDY: Left lower extremity ultrasound dated 03/07/2025. TECHNIQUE: Real-time, grayscale, and color Doppler sonography of the deep veins of the left lower extremity was performed from the inguinal crease to the calf. Compression and augmentation were utilized. FINDINGS: There is no sonographic evidence of deep venous thrombosis identified in the left lower extremity. The common femoral, superficial femoral, and popliteal veins are patent and normally compressible. The visualized calf veins are patent. There is extensive occlusive superficial venous thrombus seen within the greater saphenous vein. This extends from the proximal thigh to the distal calf, and comes within approximately 1.5 cm of the junction with the common femoral vein. A debris-containing popliteal cyst measures 6.6 x 3.4 x 4.2 cm. IMPRESSION: 1. There is no sonographic evidence of deep venous thrombosis identified in the left lower extremity. 2. Extensive occlusive superficial venous thrombus is again seen throughout the greater saphenous vein. 3. Popliteal cyst. ACT 112: Negative or not required by law. Electronically signed by: Osito Bennett M.D. 03/10/2025 10:58 AM Discharge Plan Visit Data Chief Complaint: Chest Pain Stated Complaint: LEFT LEG AND CHEST PAINS ED Provider: Christian Morales Discharge Problem: Pulmonary embolism, Pulmonary infarct, Shortness of breath, Pleurisy Patient Disposition: Admitted As Inpatient Condition: Serious Discharge Instructions Interventions: ED Discharge Assessment Last Done: 03/10/25 18:30 Discharge Problem: Pulmonary embolism Qualifiers: Pulmonary embolism type: unspecified Chronicity: acute Acute cor pulmonale presence: unspecified Qualified Code(s): I26.99 - Other pulmonary embolism without acute cor pulmonale
[2025-03-10] MEDS: ALBUTEROL HFA 8 GM INHALER INH ONE (08:56)
[2025-03-10 08:57] LABS: Alanine Aminotransferase 19 U/L (7-52); Albumin Globulin Ratio 1.3 (0.9-2); Albumin Level 4.2 gm/dl (3.4-5.0); Alkaline Phosphatase 50 U/L (34-104); Anion Gap 8 (3-11); Bilirubin,Total 0.5 mg/dl (0.2-1.0); Blood Urea Nitrogen 14 mg/dl (6-23); Calcium 8.9 mg/dl (8.6-10.3); Carbon Dioxide 23 mmol/L (21-32); Chloride 107 mmol/L (98-107); Creatinine Clr Calc Pharmacy 155.2 ml/min; Globulin 3.2 gm/dl (2.5-4.0); Glucose 195 mg/dl (70-99(Fasting)); Lipase 14 U/L (11-82); Magnesium 2.0 mg/dl (1.7-2.4); Potassium 3.9 mmol/L (3.5-5.1); Sodium 138 mmol/L (136-145); Total Protein 7.4 gm/dl (6.0-8.3)
[2025-03-10] MEDS: dexAMETHasone**PF** 10 MG/ML VIAL IV ONE (08:57)
[2025-03-10] MEDS: ACETAMINOPHEN 1,000 MG/100 ML VIAL IV STA (08:57)
[2025-03-10] MEDS: OPTIRAY 320 125ml IV ONE (09:59)
[2025-03-10 10:20] LABS: Chlamydia pneumoniae PCR Not Detected (NotDetected); Coronavirus 229E PCR Not Detected (NotDetected); Coronavirus CoV-2 (COVID19)PCR Not Detected (NotDetected); Coronavirus HKU1 PCR Not Detected (NotDetected); Coronavirus NL63 PCR Not Detected (NotDetected); Coronavirus OC43PCR Not Detected (NotDetected); Human Metapneumovirus PCR Not Detected (NotDetected); Parainfluenza Virus 1 PCR Not Detected (NotDetected); Parainfluenza Virus 2 PCR Not Detected (NotDetected); Parainfluenza Virus 3 PCR Not Detected (NotDetected); Parainfluenza Virus 4 PCR Not Detected (NotDetected); Respiratory Syncytial VirusPCR Not Detected (NotDetected); Rhinovirus/Enterovirus PCR Not Detected (NotDetected)
--- NOTE | 2025-03-10 10:34 | CT Scan Report ---
CT ANGIOGRAM OF THE CHEST CLINICAL HISTORY: Chest pain. Shortness of breath. Elevated d-dimer. COMPARISON STUDY: Chest CT March 07, 2025. Chest radiograph performed earlier today. TECHNIQUE: Following the IV administration of 112 cc of Optiray 320, CT angiogram of the chest was pe rformed from the upper abdomen to the thoracic inlet utilizing the pulmonary embolus protocol. Images are reviewed in the axial, sagittal, and coronal planes. 3-D MIPS images are created and assessed. I V contrast was administered without complication. A dose lowering technique was utilized adhering to the principles of ALARA. CT DOSE: 1016.02 mGy.cm FINDINGS: There are several subsegmental pulmonary emboli within the right lower lobe. No central pul monary emboli are identified. Moderate right lower lobe subpleural groundglass opacity favors a pulmo nary infarct. There is a small right pleural effusion. There is no pneumothorax. There is no thoracic aortic dissection. No suspicious pulmonary nodules are identified. Subpleural left lung opacities fa vor atelectasis. A subcentimeter hypodense segment 7 hepatic lesion is unchanged from earlier exams. This is benign. The gallbladder is surgically absent. IMPRESSION: 1. Several subsegmental right lower lobe pulmonary emboli. 2. Subpleural right lower lobe opacity suggestive of an associated pulmonary infarct. Small right ple ural effusion. ACT 112: Negative or not required by law. Electronically signed by: Nathan Dickens M.D. 03/10/2025 10:32 AM
--- NOTE | 2025-03-10 10:59 | Ultrasound Report ---
ULTRASOUND LEFT LOWER EXTREMITY VENOUS CLINICAL HISTORY: Left leg pain. Deep venous thrombosis. COMPARISON STUDY: Left lower extremity ultrasound dated 03/07/2025. TECHNIQUE: Real-time, grayscale, and color Doppler sonography of the deep veins of the left lower ext remity was performed from the inguinal crease to the calf. Compression and augmentation were utilized . FINDINGS: There is no sonographic evidence of deep venous thrombosis identified in the left lower ext remity. The common femoral, superficial femoral, and popliteal veins are patent and normally compress ible. The visualized calf veins are patent. There is extensive occlusive superficial venous thrombus seen within the greater saphenous vein. This extends from the proximal thigh to the distal calf, and comes within approximately 1.5 cm of the junction with the common femoral vein. A debris-containing popliteal cyst measures 6.6 x 3.4 x 4.2 cm. IMPRESSION: 1. There is no sonographic evidence of deep venous thrombosis identified in the left lower extremity. 2. Extensive occlusive superficial venous thrombus is again seen throughout the greater saphenous vei n. 3. Popliteal cyst. ACT 112: Negative or not required by law. Electronically signed by: Osito Bennett M.D. 03/10/2025 10:58 AM
[2025-03-10] MEDS: OPTIRAY 320 100ml IV ONE (11:45)
--- NOTE | 2025-03-10 11:58 | History & Physical Report ---
Date of Service March 10, 2025 Assessment & Plan (1) Acute deep vein thrombosis (DVT) of left lower extremity: (2) Pulmonary embolism: Plan Mr. wadsworth is a pleasant 39M with PMH PE not on AC as of 03/07 who presents with chest pain. #Acute pulmonary embolism -Personally reviewed CTA from 03/07 and there are multiple PEs in RLE. Confirmed with radiology today that they were present -He was started on xarelto for DVT on 03/07 -This is NOT a xarelto failure as the PE was present prior to starting xarelto for DVT on 03/07 -Also c/o pleuritic pain secondary to pulmonary infarction -No O2 requirements -PESI score low, only for age -HS trop normal -No s/s R heart failure Plan -Continue xarelto starter pack dosing for PE/DVT -Add NSAIDs for pleuritic chest pain -Cardiac monitoring for today -Anticipate DC home tomorrow -This is his second episode so would favor lifelong AC and OP hematology eval I spent a total of 75 minutes coordinating, documenting, and providing care for this patient excluding time spent in the performance of separately billed services. This included personally reviewing all current laboratories and imaging studies, medical reconciliation, outpatient chart review and discussion with specialists History of Present Illness Chief Complaint: CHest pain Primary Care Provider: Dom Hernandez MD Mr. wadsworth is a pleasant 39M with PMH PE not on AC as of 03/07 who presents with chest pain. He was seen on 03/07 for similar complaints. At that time, he had a CTA chest which was read as RLL PNA but no PE. He had L leg pain and doppler showed greater saphenous vein clot and was started on xarelto. He was also sent on augmentin and azith for possible PNA. He returns today due to unchanged pleuritic chest pain. It is not exertional. deep breaths make it worse. severe pain, 8/10, sharp. Repeat CTA today shows multiple subsegmental RLL pulmonary emboli. Patient denies any other complaints vitals and labs are stable in ED Allergies Allergy/AdvReac Type Severity Reaction Status Date / Time No Known Allergies Allergy Verified 01/14/24 19:44 Home Medications Medication Instructions Recorded Confirmed Type naproxen 500 mg tablet 500 mg PO BID PRN pain #14 tabs 06/02/24 Rx amoxicillin 875 mg-potassium 1 tab PO BID #20 tabs 03/08/25 Rx clavulanate 125 mg tablet azithromycin 250 mg tablet 250 mg PO DAILY 4 days #4 tabs 03/08/25 Rx (Zithromax) rivaroxaban 15 mg (42)-20 mg (9) See Rx Instructions PO .COMPLEX 03/08/25 Rx tablets in a starter pack (Xarelto #51 ea DVT-PE Treatment 30-Day Starter) Past Med/Surg History Problem List Pneumonia (Acute) Acute deep vein thrombosis (DVT) of left lower extremity (Acute) COVID-19 (Acute) Pulmonary embolism (Acute) Enteritis (Acute) Subtherapeutic international normalized ratio (INR) (Acute) Bright red rectal bleeding (Acute) Pneumonia (Acute) Chest pain (Acute) Subtherapeutic international normalized ratio (INR) (Acute) Acute pulmonary embolism Weight loss, abnormal Multiple pulmonary emboli (Acute) Pulmonary infarct (Acute) Right-sided chest pain (Acute) Leukocytosis (Acute) Superficial vein thrombosis (Acute) Sepsis Smoking (Chronic) DVT prophylaxis Tobacco use (Chronic) Hx of shoulder surgery (Chronic) History of tonsillectomy (Chronic) H/O adenoidectomy (Chronic) History of cholecystectomy (Chronic) GERD (gastroesophageal reflux disease) (Chronic) Pneumonia (Acute) Family History Other Diabetes Thyroid disorder Social History Smoking Status: Current every day smoker Tobacco Type: Cigarettes Age Started Using Tobacco: 18; packs per day: 1.5; Cigarettes Per Day: 3; Second Hand Exposure: Yes; Do You Dip or Chew Tobacco: No (former); Hx Alcohol Use: Yes Alcohol type: beer Hx Substance Use: No Preferred Language: [place] Communication Ability: Effective Upholstery Sewer Required: No Beliefs That Will Affect Care: None marital status: Single Current Living Situation: Significant Other Current Living Situation Comment: girlfriend Feels Safe at Home: Yes Assistive Devices: None Review of Systems Review of Systems: 14 point ROS neg unless stated in HPI Physical Exam Physical Exam: Vitals and labs reviewed General: Well appearing, NAD HEENT: EOMI, PERRLA Neck: Supple Cardiac: RRR no rubs gallops or murmurs Lungs: CTA no rhonchi wheezing or rales Abd: S NT ND BS positive : Deffered MSK: Full ROM. No obvious deformities Ext: No Edema cyanosis Skin: Warm, Dry Neuro: AOx3 No focal deficits. Psych: Normal Mood Results & Data Results & Data Vital Signs (Past 12 Hours) Vital Signs Temp Pulse Resp BP Pulse Ox O2 Del Method 03/10/25 09:06 79 19 124/83 94 Room Air 03/10/25 08:24 95 H 03/10/25 08:24 96 Room Air 03/10/25 08:24 96 Room Air 03/10/25 08:12 36.6 C 94 H 18 133/82 95 Room Air Laboratory Results Abnormal lab results 03/10/25 Range/Units 08:20 WBC 11.05 H (4.8-10.8) K/ul Neut # (Auto) 7.31 H (1.40-6.50) K/uL Nash # (Auto) 0.88 H (0.11-0.59) K/uL D-Dimer 1040 H* (0-500) ug/L FEU Glucose 195 H (70-99(Fasting)) mg/dl AST 10 L (13-39) U/L Diagnostic Findings Chest X-Ray 03/10/25 08:18 XR chest 1V portable CLINICAL HISTORY: Chest pain, nonspecific COMPARISON STUDY: 03/07/2025 FINDINGS: Heart size and pulmonary vasculature are normal. There is interval streaky reticular and patchy opacity at the right lung base. No other consolidation or pleural effusion. No pneumothorax. IMPRESSION: Early pneumonia right lung base. ACT 112: Negative or not required by law. Electronically signed by: Thompson Mcqueen M.D. 03/10/2025 8:50 AM Chest CTA 03/10/25 09:33 CT ANGIOGRAM OF THE CHEST CLINICAL HISTORY: Chest pain. Shortness of breath. Elevated d-dimer. COMPARISON STUDY: Chest CT March 07, 2025. Chest radiograph performed earlier today. TECHNIQUE: Following the IV administration of 112 cc of Optiray 320, CT angiogram of the chest was performed from the upper abdomen to the thoracic inlet utilizing the pulmonary embolus protocol. Images are reviewed in the axial, sagittal, and coronal planes. 3-D MIPS images are created and assessed. IV contrast was administered without complication. A dose lowering technique was utilized adhering to the principles of ALARA. CT DOSE: 1016.02 mGy.cm FINDINGS: There are several subsegmental pulmonary emboli within the right lower lobe. No central pulmonary emboli are identified. Moderate right lower lobe subpleural groundglass opacity favors a pulmonary infarct. There is a small right pleural effusion. There is no pneumothorax. There is no thoracic aortic dissection. No suspicious pulmonary nodules are identified. Subpleural left lung opacities favor atelectasis. A subcentimeter hypodense segment 7 hepatic lesion is unchanged from earlier exams. This is benign. The gallbladder is surgically absent. IMPRESSION: 1. Several subsegmental right lower lobe pulmonary emboli. 2. Subpleural right lower lobe opacity suggestive of an associated pulmonary infarct. Small right pleural effusion. ACT 112: Negative or not required by law. Electronically signed by: Nathan Dickens M.D. 03/10/2025 10:32 AM Venous Doppler Study 03/10/25 09:33 ULTRASOUND LEFT LOWER EXTREMITY VENOUS CLINICAL HISTORY: Left leg pain. Deep venous thrombosis. COMPARISON STUDY: Left lower extremity ultrasound dated 03/07/2025. TECHNIQUE: Real-time, grayscale, and color Doppler sonography of the deep veins of the left lower extremity was performed from the inguinal crease to the calf. Compression and augmentation were utilized. FINDINGS: There is no sonographic evidence of deep venous thrombosis identified in the left lower extremity. The common femoral, superficial femoral, and popliteal veins are patent and normally compressible. The visualized calf veins are patent. There is extensive occlusive superficial venous thrombus seen within the greater saphenous vein. This extends from the proximal thigh to the distal calf, and comes within approximately 1.5 cm of the junction with the common femoral vein. A debris-containing popliteal cyst measures 6.6 x 3.4 x 4.2 cm. IMPRESSION: 1. There is no sonographic evidence of deep venous thrombosis identified in the left lower extremity. 2. Extensive occlusive superficial venous thrombus is again seen throughout the greater saphenous vein. 3. Popliteal cyst. ACT 112: Negative or not required by law. Electronically signed by: Osito Bennett M.D. 03/10/2025 10:58 AM Code Status & VTE Plan Code Status full VTE Prophylaxis Plan VTE Prophylaxis will be ordered: Yes (2) Pulmonary embolism Acute cor pulmonale presence: unspecified Chronicity: acute Pulmonary embolism type: unspecified Qualified Code(s): I26.99 - Other pulmonary embolism without acute cor pulmonale
[2025-03-10] MEDS: IBUPROFEN 600 MG TAB PO PRN (13:33)
--- NOTE | 2025-03-10 13:47 | Electrocardiogram Report ---
Test Reason : Blood Pressure : */* mmHG Vent. Rate : 86 BPM Atrial Rate : 86 BPM P-R Int : 170 ms QRS Dur : 84 ms QT Int : 342 ms P-R-T Axes : 38 42 55 degrees QTcB Int : 409 ms Sinus rhythm with marked sinus arrhythmia Low voltage QRS Borderline ECG When compared with ECG of 07-Mar-2025 19:44, No significant change was found Confirmed by Stanley Carlos ([id number]) on 03/10/2025 1:47:03 PM Referred By: REFERRED SELF Confirmed By: Stanley Carlos
[2025-03-10] MEDS ORDERED: ONDANSETRON INJ 2 MG/ML 2 ML VIAL IV PRN (14:03)
[2025-03-10] MEDS: ACETAMINOPHEN 325 MG TAB PO PRN (15:27)
[2025-03-10] MEDS: KETOROLAC TROMETHAMINE 15 MG/ML VIAL IV ONE (18:09)
[2025-03-10 19:59] VITALS: RESP 20
[2025-03-10] MEDS: RIVAROXABAN 15 MG TAB PO SCH (21:27)
[2025-03-11 07:36] VITALS: TEMP 97.5
[2025-03-11 10:36] VITALS: PULSE 77; O2SAT 96
--- NOTE | 2025-03-11 11:05 | Discharge Summary ---
<Statement entered by Luis Curran DO - 03/11/25 12:55> I have seen and examined the patient and have discussed the case with the advance practice provider. I have reviewed the advanced practitioner's documentation, and I agree with, and take responsibility for that plan of care. Patient with pleuritic pain from PE and possible pulmonary infarct. Tolerating Xarelto Encouraged NSAID use as effective management of the pleuritic pain. Further discharge plans as outlined below I spent a total of 13 minutes coordinating, documenting, and providing care for this patient excluding time spent by another provider/QHP. Discharge Summary Date of Service March 11, 2025 Principal Dx & Hospital Course #1 = Principal Diagnosis (1) Pleurisy: (2) Pulmonary emboli: (3) Pulmonary infarct: (4) Superficial thrombosis of lower extremity: Plan Mr. 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 Previously seen in ED on 03/07/25 due to chest pain, LLE pain: LLE venous Doppler US with superficial thrombophlebitis of the great saphenous vein terminating 1.3cm proximal to the common femoral vein. -Quite extensive, extending from the proximal thigh to the distal calf. Chest CTA at that time did not reveal any evidence of acute PE per the impression. He was discharged home with a Xarelto starter pack. Pleuritic chest pain RLL pulmonary emboli and RLL pulmonary infarct LLE extensive occlusive superficial venous thrombus Pt returned to ED yesterday 2/2 persistent pleuritic chest pain. Repeat LLE venous Doppler US with no DVT, extensive occlusive superficial venous thrombus again seen throughout the greater saphenous vein >> unchanged. Repeat chest CTA, however, newly noted several RLL pulmonary emboli and RLL pulmonary infarct. Prior chest CTA from 03/07 was again reviewed by admitting provider who noted multiple PEs in the RLL which were previously missed >> this was confirmed with radiology. This is NOT a Xarelto failure as the PEs were present prior to starting Xarelto for the superficial venous thrombus on 03/07. Did not require any supplemental O2. Suspect pleuritic pain 2/2 pulmonary infarct, small R pleural effusion. Pleuritic pain improving with NSAID therapy, trial of PRN oxy. Telemetry monitoring reviewed and benign. Can continue Xarelto >> favor lifelong AC given clot recurrence, recommend OP hematology eval. History of recurrent PE and extensive superficial vein thrombosis involving the LLE Diagnosed with multiple pulmonary emboli in December 2018. -Doppler US at that time revealed no evidence of DVT but there was an occlusive superficial venous thrombus identified within the venous varicosities in the left calf. -Patient was started on Coumadin at that time. Patient was then admitted here at [facility] in April 2019 and found to have small clots at right lung base. -At that time his INR was subtherapeutic. -Coumadin was resumed and he was discharged with outpatient follow-up with anticoagulation clinic. In May 2020 he presented to OSH with pain and swelling of LLE. -Doppler US done with no evidence of DVT but did show superficial thrombus within the left greater saphenous vein from the distal thigh to the mid calf. -Patient was discharged on Lovenox and transition to Xarelto. Patient had complete thrombophilia workup done during first episode back in December 2018 which all came back negative including prothrombin gene mutation and factor V Leiden. Unclear why patient was taken off anticoagulation per chart review >> patient reportedly stopped taking Xarelto in 2022. PCP: Dom Hernandez MD Disposition: Patient is being DC'd home in stable condition with PCP f/u. Patient seen in collaboration with Dr. Curran. Please see addendum. I spent a total of 68 minutes coordinating, documenting, and providing care for this patient excluding time spent in the performance of separately billed services or time spent by another provider/QHP. This included personally reviewing all current laboratories and imaging studies, medical reconciliation, outpatient chart review and discussion with specialists. This chart was completed in part utilizing Speech Voice Recognition Software. Grammatical errors, random word insertions, pronoun errors, and incomplete sentences are an occasional consequence of this system due to software limitations, ambient noise, and hardware issues. Any formal questions or concerns about the content, text, or information contained within the body of this dictation should be directly addressed to the provider for clarification. Notes For Next Care Provider Likely to require indefinite anticoagulation given clot recurrence, recommend OP hematology referral. Medication Changes From Visit Oxycodone PRN for breakthrough pleuritic pain Admission HPI Per Admitting Provider Mr. diaz is a pleasant 39M with PMH PE not on AC as of 03/07 who presents with chest pain. He was seen on 03/07 for similar complaints. At that time, he had a CTA chest which was read as RLL PNA but no PE. He had L leg pain and doppler showed greater saphenous vein clot and was started on xarelto. He was also sent on augmentin and azith for possible PNA. He returns today due to unchanged pleuritic chest pain. It is not exertional. deep breaths make it worse. severe pain, 8/10, sharp. Repeat CTA today shows multiple subsegmental RLL pulmonary emboli. Patient denies any other complaints vitals and labs are stable in ED Admission Exam Per Admitting Provider Vitals and labs reviewed General: Well appearing, NAD HEENT: EOMI, PERRLA Neck: Supple Cardiac: RRR no rubs gallops or murmurs Lungs: CTA no rhonchi wheezing or rales Abd: S NT ND BS positive : Deffered MSK: Full ROM. No obvious deformities Ext: No Edema cyanosis Skin: Warm, Dry Neuro: AOx3 No focal deficits. Psych: Normal Mood Discharge Exam General: well-appearing, NAD, M, obese HEENT: EOMI, PERRLA Cardiac: RRR, no murmurs Lungs: CTAB, Abd: soft, NT, ND, BS positive MSK: full ROM, no obvious deformities Ext: no edema or cyanosis Skin: warm, dry Neuro: A&Ox3, no focal deficits Psych: normal mood Updated Medication List Medication Instructions Recorded Confirmed Type rivaroxaban 15 mg (42)-20 mg (9) See Rx Instructions PO .COMPLEX 03/08/25 03/10/25 Rx tablets in a starter pack (Xarelto #51 ea DVT-PE Treatment 30-Day Starter) oxycodone 5 mg tablet 2.5 mg (1/2 x 5 mg) PO Q6H PRN 03/11/25 Rx pain #10 tabs Hospital Stay Data Consultations 03/10/25 11:02 ED Decision to Admit Stat Diagnostic Imagining Performed 03/10/25 09:33 CT angio chest PE protocol Stat US venous doppler LE LT Stat Pending Results Patient Have Any Pending Studies at Discharge: No Discharge Instructions Given to Patient (Per Discharging Provider) cheryl Foote were admitted to [facility] with pleuritic chest pain in the setting of a newly diagnosed right lower lung pulmonary infarct secondary to several right lower lobe pulmonary emboli. Pleuritic chest pain is a sharp, stabbing pain in the chest that worsens with deep breathing, coughing, or sneezing. A pulmonary infarct, which is the of lung tissue, can cause pleurisy (AKA pleuritic chest pain) because the resulting inflammation and ischemia trigger a pain response in the pleura (the thin membranes lining your lungs). Treatment for pleurisy caused by a pulmonary infarct focuses on first treating the underlying cause, which in your case is the pulmonary emboli (blood clots in your lungs). To further help alleviate pleuritic chest pain, we utilize nonsteroidal anti-inflammatory drugs (NSAIDs) such as Aleve or Motrin. For treatment of the pulmonary emboli, anticoagulants (blood thinners) are used. You have already been started on Xarelto. You started taking the Xarelto on 03/08/2025. You are currently on DAY #4. You received your morning dose already today. * Continue to take 15mg Xarelto twice daily for the first 21 DAYS. * Then starting on DAY 22, change to 20mg once daily at the same time each day as outlined in the starter pack. Given this is a recurrence of blood clots, you will likely need to be on anticoagulation INDEFINITELY. Your PCP will help to navigate this process with hematology for confirmation of duration of treatment. In regard to NSAID use, this usually involves taking ibuprofen/Motrin (400-800mg every 6-8 hours) OR naproxen/Aleve (250-500mg twice daily) Remember to always take NSAIDs WITH FOOD. NSAIDs are known to cause significant GI upset if taken on an empty stomach. You were also prescribed oxycodone to take ONLY NEEDED for breakthrough pain not controlled by NSAID therapy. Recommendations for follow-up: Please attend your PCP follow-up appointment as scheduled. Seek medical attention if you have: * temperature above 101F * chest pain or trouble breathing * abdominal pain, nausea, vomiting * diarrhea, dark stools or bloody stools * any unanswered questions or concerns Call 911 if symptoms are severe. Please take good care of yourself. It has been a pleasure taking care of you. If you have any questions regarding your recent hospitalization, please contact [facility] and request a [facility] @ [phone]. Total Time Total Time Spent Total Time Spent (In Minutes):
[2025-03-11 11:24] VITALS: BP 118/70
== END 2025-03-11 11:56 | disposition home or self-care (01) ==
LOC: ED 08:09 → EDINP 08:09 → SUATTDRO 11:47 → 2N 18:22